=== PATIENT | female | born 1965 | race Caucasian/White ===

== ENCOUNTER 2016-07-18 23:23 | Observation (INO) ==
[2016-07-18] MEDS ORDERED: *HR* Morphine 2 MG/ML SYRINGE IVP ONE (23:36)
[2016-07-18] MEDS ORDERED: Ketorolac 30 MG/ML VIAL IVP ONE (23:36)
--- NOTE | 2016-07-18 23:40 | Emergency Department Note ---
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: with residential use Qualified Code(s): E11.8 - Type 2 diabetes mellitus with unspecified complications Disposition: Admitted As Inpatient Condition: Good Time of Disposition: 03:25 Abdominal Pain HPI - General Chief Complaint: ED Abdominal Pain Stated Complaint: flank pain Time Seen by Provider: 07/18/16 23:36 Source: patient Nursing Notes Reviewed: Yes Vital Signs Reviewed: Yes - History of Present Illness Pt Subjective Complaint: flank pain Onset (ago): hour(s) Consistency: constant Location: bilateral flank Pain Scale: 8 Radiation: LLQ, RLQ Improves with: other (curling up on side) Worsens with: other (laying supine) Context: history of similar episodes Associated symptoms: Reports: diarrhea, dysuria, hematuria. Denies: fever, chills, constipation - Related Data Home Medications Medication Instructions Recorded Confirmed Amitriptyline HCl 100 mg PO DAILY PRN 05/23/15 03/14/16 Duloxetine HCl [Cymbalta] 60 mg PO DAILY 05/23/15 03/14/16 Lactobacillus Acidophilus 1 tab PO DAILY 05/23/15 03/14/16 [Acidophilus] Levothyroxine [Synthroid] 175 mcg PO DAILY 05/23/15 03/14/16 Magnesium Oxide [Magnesium] 400 mg PO DAILY 05/23/15 03/14/16 Metformin [Glucophage] 500 mg PO BIDWM 05/23/15 03/14/16 Promethazine [Phenergan] 25 mg PO PRN PRN 05/23/15 03/14/16 Zolpidem [Ambien] 10 mg PO HS 05/23/15 03/14/16 Gabapentin [Neurontin] 600 mg PO TID 01/17/16 03/14/16 HYDROcodone/Acet 7.5/325 mg [[place] 1 tab PO TID PRN 01/17/16 03/14/16 7.5-325 mg] Insulin DETEMIR [Levemir] 64 unit SQ QPM 01/17/16 03/14/16 Insulin LISPRO [HumaLOG] 34 units SQ TIDWM 01/17/16 03/14/16 Multivitamin [Multivitamins] 1 tab PO DAILY 01/17/16 03/14/16 Aspirin [Lo-Dose Aspirin EC] 81 mg PO DAILY 02/14/16 03/14/16 Atorvastatin [Lipitor] 80 mg PO DAILY 02/14/16 03/14/16 Furosemide [Lasix] 20 mg PO DAILY 02/14/16 03/14/16 Previous Rx's Medication Instructions Recorded Ondansetron HCl [Zofran] 4 mg PO Q6HR PRN #10 tablet 02/14/16 LORazepam [Ativan] 1 mg PO BID #6 tablet 03/11/16 Carvedilol [Coreg] 6.25 mg PO BIDWM #60 tablet 03/16/16 Omeprazole [PriLOSEC] 40 mg PO DAILY #30 cap 03/16/16 Allergies Allergy/AdvReac Type Severity Reaction Status Date / Time pregabalin [From Lyrica] Allergy Swelling Verified 07/18/16 23:25 of Lip/Tongue/Throat [place] Allergy Hives Verified 07/18/16 23:25 ESME Inhibitors AdvReac Cough Verified 07/18/16 23:25 codeine AdvReac Itching Verified 07/18/16 23:25 dihydroergotamine AdvReac Hallucinati Verified 07/18/16 23:25 ng [id number] Antimigraine AdvReac Cough Verified 07/18/16 23:25 Agents asolicitic acid Allergy Rash Uncoded 07/18/16 23:25 All systems ED: reviewed and negative except as stated. Constitutional: Denies: fever, chills Eyes: Denies: eye pain ENT ED: Denies: ear pain Cardiovascular: Denies: chest pain, palpitations Respiratory: Denies: cough, dyspnea Gastrointestinal: Reports: as per HPI, diarrhea (bloody) Genitourinary: Denies: dysuria Musculoskeletal: Reports: as per HPI. 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: Reports: endometriosis, bilateral tubal ligation Psychiatric history: Reports: no psych history - Social History Smoking status: Former smoker Alcohol use: Reports: none Drug use: Reports: none Physical Exam - General Limitations: no limitations General appearance: alert, in no apparent distress - Head Head exam: normocephalic - Eye Eye exam: Present: EOMI - ENT ENT exam: normal exam, normal oropharynx - Neck Neck exam: Present: normal inspection, full ROM - Chest Chest inspection: Present: normal inspection, symmetric chest wall rise - Respiratory Respiratory exam: Present: normal lung sounds bilaterally. Absent: respiratory distress - Cardiovascular Cardiovascular exam: Present: regular rate, normal rhythm - Abdominal Exam Abdominal exam: Present: soft, Non-Tender - Extremities Exam Extremities exam: Present: normal inspection, normal capillary refill - Back Exam Back exam: Present: full ROM, tenderness, CVA tenderness (R), CVA tenderness (L) - Neurological Exam Neurological exam: Present: alert - Psychiatric Psychiatric exam: Present: normal affect, normal mood - Skin Skin exam: Present: warm, dry, intact, normal color. Absent: rash, cyanosis, diaphoresis Course Course Narrative: 50-year-old female diabetic presents with bilateral flank pain that radiates into right and left lower quadrant. She compares it to her previous kidney stone pain. Pain started shortly after she was urinating [employer], and noticing blood on the tissue after she had wiped. She had some nausea at home which was helped with phenergan prior to arrival, but she has not vomitted. She mentions 2-3 day h/o of blood diarrhea. She mentions a history of irritable bowel syndrome, with chronic diarrhea, and also has had episodes of bloody diarrhea in the past. She states that previous doctors have told her this is not concerning and less it turns dark. She uses oxygen at home for her shortness of breath which she states is caused from her COPD. She uses an insulin pump to help with her diabetes. She mentions intermittent dysuria especially after she boluses from her insulin pump. She denies any melena, hematemesis, recent travel, fevers, chest pain, dyspnea on exertion, diaphoresis , neck or extremity pain, pelvic pain, vaginal bleeding, anticoagulants. - Reevaluation(s) Reevaluation #1: Per nursing, lab and nursing had had difficulty obtain blood and placing IV. Discussed route of administration with palpation who is agreeable to IM injections. Labwork shows slight elevation of liver enzymes, but these are consistent with her previous readings. Urinalysis shows no hematuria, no evidence of urinary tract infection. Serum ketones, elevated white blood cell count, or elevated lipase. She mentioned she had some relief after initial Toradol and morphine however pain returned shortly after. Patient was given a dose of Toradol which she states that helped marginally. Initial impression from CT abdomen and pelvis without contrast shows no acute abdominal pelvic concerns. Patient's blood pressure has improved after pain medications, and her vitals are within limits and stable. I discussed patient with Dr. Tubbs who also had a face time with patient. Will consider admission for intractable abdominal pain. Patient does mention intermittent bloody diarrhea. We will do a ABHIJIT and hemaccult. Per nursing, unable to get IV place. Will reassess pain and order analgesics. Time: 02:27 Reevaluation #2: IV access was obtained. Patient IV fentanyl ordered. Patient discussed with and accepted by hospitalist Dr. Alfred, who advised fluids and also requested stool collection for culture and c.diff Time: 03:23 Vital Signs Temperature 97.7 F 07/18/16 23:26 Pulse Rate 98 07/18/16 23:26 Respiratory Rate 18 07/18/16 23:26 Blood Pressure 209/79 07/18/16 23:26 O2 Sat by Pulse Oximetry 98 07/18/16 23:26 Temperature 97.7 F 07/18/16 23:26 Pulse Rate 83 07/19/16 03:03 Respiratory Rate 14 07/19/16 04:02 Blood Pressure 175/74 07/19/16 04:02 O2 Sat by Pulse Oximetry 98 07/19/16 03:03 Oxygen Delivery Oxygen Delivery Nasal Cannula Abdominal Pain - [facility] Narrative Medical decision making narrative: Patient presented with bilateral flank pain with radiation into her bilateral lower quadrants. She denies any worsening shortness of breath, chest pain, or recent illness. Patient also has a recent history of samantha hematuria, and bloody diarrhea. Patient has had previous evaluations in the past for abdominal pain, states that she has had seen GI for this in the past. Workup tonight unremarkable, CT scan unremarkable. Due to the note cause of abdominal pain and bloody stools, patient was discussed and accepted by hospitalist. Her vitals have been stable here. She has been given multiple doses of pain medication. Patient stable to be transferred to inpatient care. Abdomen/Pelvis CT 07/19/16 01:00 IMPRESSION: 1. No acute findings identified within the abdomen pelvis. D/ / Sanju Blanchard MD / Sanju Blanchard MD Interpreting Provider: Sanju Blanchard MD All Lab Results (24 Hours) 07/19/16 07/19/16 07/19/16 Range/Units 00:10 00:16 00:16 WBC 10.1 (4.3-11.1) K/mcL RBC 4.14 (3.82-4.97) M/mcL Hgb 12.5 (11.5-15.4) g/dL Hct 36.1 (35.3-44.9) % MCV 87.2 (83.0-100.0) fL MCH 30.2 (28.0-33.3) pg MCHC 34.6 (31.6-35.5) g/dL RDW 12.6 (11.5-14.5) % Plt Count 260 (140-400) K/mcL MPV 10.0 (9.4-12.4) fL Immature Gran % 0.3 (0-4) % Seg Neutrophils % 64.9 % Lymphocytes % 25.0 % Monocytes % 7.0 % Eosinophils % 2.2 % Basophils % 0.6 % Neutrophils # 6.5 (1.6-8.9) K/mcL Lymphocytes # 2.5 (0.6-4.6) K/mcL Monocytes # 0.7 (0.0-1.3) K/mcL Eosinophils # 0.2 (0.0-0.6) K/mcL Basophils # 0.1 (0.0-0.2) K/mcL Immature Plt Fraction 4.2 (1.1-6.1) % PT 11.0 (9.4-12.1) Seconds INR 1.0 APTT 20.0 L (26.0-36.0) Seconds Sodium 135 L (136-145) mEq/L Potassium 4.0 (3.5-4.5) mEq/L Chloride 100 (98-109) mEq/L Carbon Dioxide 26 (19-29) mEq/L BUN 10 (7-20) mg/dL Creatinine 0.95 (0.57-1.11) mg/dL Est GFR ( Amer) > 60 (> 60) Est GFR (Non-Af Amer) > 60 (> 60) BUN/Creatinine Ratio 11 (6-26) Glucose 380 H (70-99) mg/dL Calculated Osmolality 295 (280-300) Calcium 9.2 (8.6-10.8) mg/dL Total Bilirubin (0.2-1.2) mg/dL Direct Bilirubin (0.0-0.5) mg/dL Indirect Bilirubin (0.0-1.2) mg/dL AST (5-34) Units/L ALT (0-55) Units/L Alkaline Phosphatase (38-126) Units/L Serum Total Protein (6.0-8.3) g/dL Albumin (3.5-5.0) g/dL Globulin (2.4-3.5) g/dL Albumin/Globulin Ratio (1.1-2.2) Lipase (8-78) Units/L Beta-Hydroxybutyric Acd (0.02-0.27) mmol/L Urine Color (Yellow) Urine Clarity (Clear) Urine pH (5.0-8.0) pH Units Ur Specific [place] (1.010-1.025) Urine Protein (Neg-Trace) mg/dL Urine Glucose (UA) (Normal) mg/dL Urine Ketones (Negative) mg/dL Urine Blood (Negative) Urine Nitrite (Negative) Urine Bilirubin (Negative) Urine Urobilinogen (Normal) mg/dL Ur Leukocyte Esterase (Negative) Urine Microscopic RBC (0-3) per hpf Urine Microscopic WBC (0-3) per hpf Ur Squamous Epith Cells (None-Few) per lpf Urine Bacteria (None-Few) per hpf Hyaline Casts (None-Few) per lpf Ur Culture Indicated? (NO) Stool Occult Blood (Negative) 07/19/16 07/19/16 07/19/16 Range/Units 00:16 00:16 00:21 WBC (4.3-11.1) K/mcL RBC (3.82-4.97) M/mcL Hgb (11.5-15.4) g/dL Hct (35.3-44.9) % MCV (83.0-100.0) fL MCH (28.0-33.3) pg MCHC (31.6-35.5) g/dL RDW (11.5-14.5) % Plt Count (140-400) K/mcL MPV (9.4-12.4) fL Immature Gran % (0-4) % Seg Neutrophils % % Lymphocytes % % Monocytes % % Eosinophils % % Basophils % % Neutrophils # (1.6-8.9) K/mcL Lymphocytes # (0.6-4.6) K/mcL Monocytes # (0.0-1.3) K/mcL Eosinophils # (0.0-0.6) K/mcL Basophils # (0.0-0.2) K/mcL Immature Plt Fraction (1.1-6.1) % PT (9.4-12.1) Seconds INR APTT (26.0-36.0) Seconds Sodium (136-145) mEq/L Potassium (3.5-4.5) mEq/L Chloride (98-109) mEq/L Carbon Dioxide (19-29) mEq/L BUN (7-20) mg/dL Creatinine (0.57-1.11) mg/dL Est GFR ( Amer) (> 60) Est GFR (Non-Af Amer) (> 60) BUN/Creatinine Ratio (6-26) Glucose (70-99) mg/dL Calculated Osmolality (280-300) Calcium (8.6-10.8) mg/dL Total Bilirubin 0.6 (0.2-1.2) mg/dL Direct Bilirubin 0.2 (0.0-0.5) mg/dL Indirect Bilirubin 0.4 (0.0-1.2) mg/dL AST 71 H (5-34) Units/L ALT 57 H (0-55) Units/L Alkaline Phosphatase 143 H (38-126) Units/L Serum Total Protein 7.7 (6.0-8.3) g/dL Albumin 3.7 (3.5-5.0) g/dL Globulin 4.0 H (2.4-3.5) g/dL Albumin/Globulin Ratio 0.9 L (1.1-2.2) Lipase 45 (8-78) Units/L Beta-Hydroxybutyric Acd 0.22 (0.02-0.27) mmol/L Urine Color Yellow (Yellow) Urine Clarity Clear (Clear) Urine pH 6.0 (5.0-8.0) pH Units Ur Specific [place] > 1.030 H (1.010-1.025) Urine Protein Trace (Neg-Trace) mg/dL Urine Glucose (UA) >=1000 H (Normal) mg/dL Urine Ketones Trace H (Negative) mg/dL Urine Blood Negative (Negative) Urine Nitrite Negative (Negative) Urine Bilirubin Negative (Negative) Urine Urobilinogen Normal (Normal) mg/dL Ur Leukocyte Esterase Negative (Negative) Urine Microscopic RBC 0-3 (0-3) per hpf Urine Microscopic WBC 3-5 H (0-3) per hpf Ur Squamous Epith Cells Many H (None-Few) per lpf Urine Bacteria None Seen (None-Few) per hpf Hyaline Casts None Seen (None-Few) per lpf Ur Culture Indicated? NO (NO) Stool Occult Blood (Negative) 07/19/16 Range/Units 01:47 WBC (4.3-11.1) K/mcL RBC (3.82-4.97) M/mcL Hgb (11.5-15.4) g/dL Hct (35.3-44.9) % MCV (83.0-100.0) fL MCH (28.0-33.3) pg MCHC (31.6-35.5) g/dL RDW (11.5-14.5) % Plt Count (140-400) K/mcL MPV (9.4-12.4) fL Immature Gran % (0-4) % Seg Neutrophils % % Lymphocytes % % Monocytes % % Eosinophils % % Basophils % % Neutrophils # (1.6-8.9) K/mcL Lymphocytes # (0.6-4.6) K/mcL Monocytes # (0.0-1.3) K/mcL Eosinophils # (0.0-0.6) K/mcL Basophils # (0.0-0.2) K/mcL Immature Plt Fraction (1.1-6.1) % PT (9.4-12.1) Seconds INR APTT (26.0-36.0) Seconds Sodium (136-145) mEq/L Potassium (3.5-4.5) mEq/L Chloride (98-109) mEq/L Carbon Dioxide (19-29) mEq/L BUN (7-20) mg/dL Creatinine (0.57-1.11) mg/dL Est GFR ( Amer) (> 60) Est GFR (Non-Af Amer) (> 60) BUN/Creatinine Ratio (6-26) Glucose (70-99) mg/dL Calculated Osmolality (280-300) Calcium (8.6-10.8) mg/dL Total Bilirubin (0.2-1.2) mg/dL Direct Bilirubin (0.0-0.5) mg/dL Indirect Bilirubin (0.0-1.2) mg/dL AST (5-34) Units/L ALT (0-55) Units/L Alkaline Phosphatase (38-126) Units/L Serum Total Protein (6.0-8.3) g/dL Albumin (3.5-5.0) g/dL Globulin (2.4-3.5) g/dL Albumin/Globulin Ratio (1.1-2.2) Lipase (8-78) Units/L Beta-Hydroxybutyric Acd (0.02-0.27) mmol/L Urine Color (Yellow) Urine Clarity (Clear) Urine pH (5.0-8.0) pH Units Ur Specific [place] (1.010-1.025) Urine Protein (Neg-Trace) mg/dL Urine Glucose (UA) (Normal) mg/dL Urine Ketones (Negative) mg/dL Urine Blood (Negative) Urine Nitrite (Negative) Urine Bilirubin (Negative) Urine Urobilinogen (Normal) mg/dL Ur Leukocyte Esterase (Negative) Urine Microscopic RBC (0-3) per hpf Urine Microscopic WBC (0-3) per hpf Ur Squamous Epith Cells (None-Few) per lpf Urine Bacteria (None-Few) per hpf Hyaline Casts (None-Few) per lpf Ur Culture Indicated? (NO) Stool Occult Blood Positive A (Negative) - Lab Data Lab results reviewed: Yes I reviewed the patient's lab results. Result diagrams: 07/19/16 00:16 07/19/16 00:16 Lab Results 07/19/16 07/19/16 07/19/16 Range/Units 00:10 00:16 00:16 WBC 10.1 (4.3-11.1) K/mcL RBC 4.14 (3.82-4.97) M/mcL Hgb 12.5 (11.5-15.4) g/dL Hct 36.1 (35.3-44.9) % MCV 87.2 (83.0-100.0) fL MCH 30.2 (28.0-33.3) pg MCHC 34.6 (31.6-35.5) g/dL RDW 12.6 (11.5-14.5) % Plt Count 260 (140-400) K/mcL MPV 10.0 (9.4-12.4) fL Immature Gran % 0.3 (0-4) % Seg Neutrophils % 64.9 % Lymphocytes % 25.0 % Monocytes % 7.0 % Eosinophils % 2.2 % Basophils % 0.6 % Neutrophils # 6.5 (1.6-8.9) K/mcL Lymphocytes # 2.5 (0.6-4.6) K/mcL Monocytes # 0.7 (0.0-1.3) K/mcL Eosinophils # 0.2 (0.0-0.6) K/mcL Basophils # 0.1 (0.0-0.2) K/mcL Immature Plt Fraction 4.2 (1.1-6.1) % PT 11.0 (9.4-12.1) Seconds INR 1.0 APTT 20.0 L (26.0-36.0) Seconds Sodium 135 L (136-145) mEq/L Potassium 4.0 (3.5-4.5) mEq/L Chloride 100 (98-109) mEq/L Carbon Dioxide 26 (19-29) mEq/L BUN 10 (7-20) mg/dL Creatinine 0.95 (0.57-1.11) mg/dL Est GFR ( Amer) > 60 (> 60) Est GFR (Non-Af Amer) > 60 (> 60) BUN/Creatinine Ratio 11 (6-26) Glucose 380 H (70-99) mg/dL Calculated Osmolality 295 (280-300) Calcium 9.2 (8.6-10.8) mg/dL Total Bilirubin (0.2-1.2) mg/dL Direct Bilirubin (0.0-0.5) mg/dL Indirect Bilirubin (0.0-1.2) mg/dL AST (5-34) Units/L ALT (0-55) Units/L Alkaline Phosphatase (38-126) Units/L Serum Total Protein (6.0-8.3) g/dL Albumin (3.5-5.0) g/dL Globulin (2.4-3.5) g/dL Albumin/Globulin Ratio (1.1-2.2) Lipase (8-78) Units/L Beta-Hydroxybutyric Acd (0.02-0.27) mmol/L Urine Color (Yellow) Urine Clarity (Clear) Urine pH (5.0-8.0) pH Units Ur Specific [place] (1.010-1.025) Urine Protein (Neg-Trace) mg/dL Urine Glucose (UA) (Normal) mg/dL Urine Ketones (Negative) mg/dL Urine Blood (Negative) Urine Nitrite (Negative) Urine Bilirubin (Negative) Urine Urobilinogen (Normal) mg/dL Ur Leukocyte Esterase (Negative) Urine Microscopic RBC (0-3) per hpf Urine Microscopic WBC (0-3) per hpf Ur Squamous Epith Cells (None-Few) per lpf Urine Bacteria (None-Few) per hpf Hyaline Casts (None-Few) per lpf Ur Culture Indicated? (NO) Stool Occult Blood (Negative) 07/19/16 07/19/16 07/19/16 Range/Units 00:16 00:16 00:21 WBC (4.3-11.1) K/mcL RBC (3.82-4.97) M/mcL Hgb (11.5-15.4) g/dL Hct (35.3-44.9) % MCV (83.0-100.0) fL MCH (28.0-33.3) pg MCHC (31.6-35.5) g/dL RDW (11.5-14.5) % Plt Count (140-400) K/mcL MPV (9.4-12.4) fL Immature Gran % (0-4) % Seg Neutrophils % % Lymphocytes % % Monocytes % % Eosinophils % % Basophils % % Neutrophils # (1.6-8.9) K/mcL Lymphocytes # (0.6-4.6) K/mcL Monocytes # (0.0-1.3) K/mcL Eosinophils # (0.0-0.6) K/mcL Basophils # (0.0-0.2) K/mcL Immature Plt Fraction (1.1-6.1) % PT (9.4-12.1) Seconds INR APTT (26.0-36.0) Seconds Sodium (136-145) mEq/L Potassium (3.5-4.5) mEq/L Chloride (98-109) mEq/L Carbon Dioxide (19-29) mEq/L BUN (7-20) mg/dL Creatinine (0.57-1.11) mg/dL Est GFR ( Amer) (> 60) Est GFR (Non-Af Amer) (> 60) BUN/Creatinine Ratio (6-26) Glucose (70-99) mg/dL Calculated Osmolality (280-300) Calcium (8.6-10.8) mg/dL Total Bilirubin 0.6 (0.2-1.2) mg/dL Direct Bilirubin 0.2 (0.0-0.5) mg/dL Indirect Bilirubin 0.4 (0.0-1.2) mg/dL AST 71 H (5-34) Units/L ALT 57 H (0-55) Units/L Alkaline Phosphatase 143 H (38-126) Units/L Serum Total Protein 7.7 (6.0-8.3) g/dL Albumin 3.7 (3.5-5.0) g/dL Globulin 4.0 H (2.4-3.5) g/dL Albumin/Globulin Ratio 0.9 L (1.1-2.2) Lipase 45 (8-78) Units/L Beta-Hydroxybutyric Acd 0.22 (0.02-0.27) mmol/L Urine Color Yellow (Yellow) Urine Clarity Clear (Clear) Urine pH 6.0 (5.0-8.0) pH Units Ur Specific [place] > 1.030 H (1.010-1.025) Urine Protein Trace (Neg-Trace) mg/dL Urine Glucose (UA) >=1000 H (Normal) mg/dL Urine Ketones Trace H (Negative) mg/dL Urine Blood Negative (Negative) Urine Nitrite Negative (Negative) Urine Bilirubin Negative (Negative) Urine Urobilinogen Normal (Normal) mg/dL Ur Leukocyte Esterase Negative (Negative) Urine Microscopic RBC 0-3 (0-3) per hpf Urine Microscopic WBC 3-5 H (0-3) per hpf Ur Squamous Epith Cells Many H (None-Few) per lpf Urine Bacteria None Seen (None-Few) per hpf Hyaline Casts None Seen (None-Few) per lpf Ur Culture Indicated? NO (NO) Stool Occult Blood (Negative) 07/19/16 Range/Units 01:47 WBC (4.3-11.1) K/mcL RBC (3.82-4.97) M/mcL Hgb (11.5-15.4) g/dL Hct (35.3-44.9) % MCV (83.0-100.0) fL MCH (28.0-33.3) pg MCHC (31.6-35.5) g/dL RDW (11.5-14.5) % Plt Count (140-400) K/mcL MPV (9.4-12.4) fL Immature Gran % (0-4) % Seg Neutrophils % % Lymphocytes % % Monocytes % % Eosinophils % % Basophils % % Neutrophils # (1.6-8.9) K/mcL Lymphocytes # (0.6-4.6) K/mcL Monocytes # (0.0-1.3) K/mcL Eosinophils # (0.0-0.6) K/mcL Basophils # (0.0-0.2) K/mcL Immature Plt Fraction (1.1-6.1) % PT (9.4-12.1) Seconds INR APTT (26.0-36.0) Seconds Sodium (136-145) mEq/L Potassium (3.5-4.5) mEq/L Chloride (98-109) mEq/L Carbon Dioxide (19-29) mEq/L BUN (7-20) mg/dL Creatinine (0.57-1.11) mg/dL Est GFR ( Amer) (> 60) Est GFR (Non-Af Amer) (> 60) BUN/Creatinine Ratio (6-26) Glucose (70-99) mg/dL Calculated Osmolality (280-300) Calcium (8.6-10.8) mg/dL Total Bilirubin (0.2-1.2) mg/dL Direct Bilirubin (0.0-0.5) mg/dL Indirect Bilirubin (0.0-1.2) mg/dL AST (5-34) Units/L ALT (0-55) Units/L Alkaline Phosphatase (38-126) Units/L Serum Total Protein (6.0-8.3) g/dL Albumin (3.5-5.0) g/dL Globulin (2.4-3.5) g/dL Albumin/Globulin Ratio (1.1-2.2) Lipase (8-78) Units/L Beta-Hydroxybutyric Acd (0.02-0.27) mmol/L Urine Color (Yellow) Urine Clarity (Clear) Urine pH (5.0-8.0) pH Units Ur Specific [place] (1.010-1.025) Urine Protein (Neg-Trace) mg/dL Urine Glucose (UA) (Normal) mg/dL Urine Ketones (Negative) mg/dL Urine Blood (Negative) Urine Nitrite (Negative) Urine Bilirubin (Negative) Urine Urobilinogen (Normal) mg/dL Ur Leukocyte Esterase (Negative) Urine Microscopic RBC (0-3) per hpf Urine Microscopic WBC (0-3) per hpf Ur Squamous Epith Cells (None-Few) per lpf Urine Bacteria (None-Few) per hpf Hyaline Casts (None-Few) per lpf Ur Culture Indicated? (NO) Stool Occult Blood Positive A (Negative) - Radiology Data Radiology results reviewed: Yes I reviewed the patient's radiology results. Attestation Statement - Attestation Attestation: I, Sean Tubbs MD, personally performed a history and physical exam of the patient and discussed their management with the midlevel provicer, PAC/ROOM DESIGNER. I reviewed the midlevel provider's note and agree with the documented findings, medical decision making, and plan of care. 50-year-old female presents to the emergency department with a complaint of severe bilateral flank pain radiating around to the lower quadrants of the abdomen. Pain became severe about 6 hours prior to arrival. Some gross hematuria. Patient has a history of kidney stones and states this feels the same however it is on both sides. Nausea but no vomiting. No fever. Some dysuria. She also complains of some diarrhea however this is chronic. Some blood in the diarrhea. On examination patient is a well-developed obese female in no acute distress but appears to be in moderate discomfort. She is alert and oriented 3. There is no cyanosis or diaphoresis. Breath sounds are clear and equal bilaterally. Heart regular rate and rhythm. Abdomen soft with normal bowel sounds. There is mild bilateral lower abdominal tenderness and moderate bilateral CVA tenderness. Labs reviewed. Urinalysis unremarkable. CT of the abdomen and pelvis showed no acute intra-abdominal or pelvic abnormality. Stool Hemoccult was positive. Patient continued to have significant pain despite multiple doses of pain medication. The hospitalist, Dr. Alfred, was consulted and accepted admission of the patient.
[2016-07-19 00:21] LABS: Basophils # 0.1 K/mcL (0.0-0.2); Basophils % 0.6 %; Eosinophils # 0.2 K/mcL (0.0-0.6); Eosinophils % 2.2 %; Hematocrit 36.1 % (35.3-44.9); Hemoglobin 12.5 g/dL (11.5-15.4); Immature Granulocytes % 0.3 % (0-4); Immature Platelets 4.2 % (1.1-6.1); Lymphocytes # 2.5 K/mcL (0.6-4.6); Mean Corpuscular HGB Conc 34.6 g/dL (31.6-35.5); Mean Corpuscular Hemoglobin 30.2 pg (28.0-33.3); Mean Corpuscular Volume 87.2 fL (83.0-100.0); Monocytes # 0.7 K/mcL (0.0-1.3); Neutrophils # 6.5 K/mcL (1.6-8.9); Platelet Count 260 K/mcL (140-400); Red Blood Count 4.14 M/mcL (3.82-4.97); Red Cell Distribution Width 12.6 % (11.5-14.5); Segmented Neutrophils % 64.9 %
[2016-07-19 00:28] LABS: Bilirubin,Urine Negative (Negative); Blood,Urine Negative (Negative); Clarity,Urine Clear (Clear); Color,Urine Yellow (Yellow); Glucose,Urine (UA) >=1000 mg/dL (Normal); Ketones,Urine Trace mg/dL (Negative); Leukocyte Esterase,Urine Negative (Negative); Nitrite,Urine Negative (Negative); Protein,Urine Trace mg/dL (Neg-Trace); Specific Gravity,Urine > 1.030 (1.010-1.025); Urobilinogen,Urine Normal (Normal)
[2016-07-19 00:30] LABS: Bacteria,Urine None Seen per hpf (None-Few); Hyaline Casts,Urine None Seen per lpf (None-Few); RBC,Urine 0-3 per hpf (0-3); Squamous Epithelial Cell,Urine Many per lpf (None-Few)
[2016-07-19 00:33] LABS: BUN/Creatinine Ratio 11 (6-26); Blood Urea Nitrogen 10 mg/dL (7-20); Calcium 9.2 mg/dL (8.6-10.8); Carbon Dioxide 26 mEq/L (19-29); Chloride 100 mEq/L (98-109); Glucose 380 mg/dL (70-99); Osmolality,Calculated 295 (280-300); Sodium 135 mEq/L (136-145); eGFR For African Americans > 60 (> 60); eGFR For Non-African Americans > 60 (> 60)
[2016-07-19] MEDS ORDERED: Ketorolac 15 MG/ML VIAL IM ONE (00:40)
[2016-07-19] MEDS ORDERED: *HR* Morphine 2 MG/ML SYRINGE IM ONE (00:40)
[2016-07-19 01:34] LABS: Albumin 3.7 g/dL (3.5-5.0); Albumin/Globulin Ratio 0.9 (1.1-2.2); Bilirubin,Direct 0.2 mg/dL (0.0-0.5); Bilirubin,Indirect 0.4 mg/dL (0.0-1.2); Bilirubin,Total 0.6 mg/dL (0.2-1.2); Total Protein 7.7 g/dL (6.0-8.3)
[2016-07-19] MEDS ORDERED: *HR* HYDROmorphone (PF) 1 MG/ML SYRINGE IM ONE (01:40)
[2016-07-19] MEDS ORDERED: Ondansetron ODT 4 MG TAB.RAPDIS SL ONE (01:40)
[2016-07-19] MEDS ORDERED: *HR* FentaNYL (PF) 100 MCG/2 ML VIAL IM ONE (02:23)
[2016-07-19] MEDS ORDERED: *HR* FentaNYL (PF) 100 MCG/2 ML VIAL IVP ONE (03:03)
[2016-07-19] MEDS ORDERED: 0.9 % Sodium Chloride 1,000 ML IVC ONE (03:20)
[2016-07-19] MEDS ORDERED: Ondansetron 4 MG/2 ML VIAL IVP ONE (03:38)
[2016-07-19] MEDS ORDERED: Ketorolac 30 MG/ML VIAL IVP ONE (05:42)
[2016-07-19] MEDS ORDERED: Acetaminophen 325 MG TABLET PO PRN (05:42)
[2016-07-19] MEDS ORDERED: Naloxone 0.4 MG/ML INJ IVP PRN (05:42)
[2016-07-19] MEDS: Ondansetron 4 MG/2 ML VIAL IVP PRN ×3 (06:07→22:28)
--- NOTE | 2016-07-19 06:08 | Internal Med History&Physical ---
<Jamari,Lauren Rose - Last Filed: 07/19/16 05:58> Date of Encounter: 07/19/16 Time of Encounter: 05:58 Assessment and Plan (1) Bilateral flank pain Current visit: Yes Status: Acute possibly etiology kidney stones, vs endometriosis, vs PCOS, vs adhesions, IBSD vs fibromyalgia -abd CT scan +FOB UA:+glucose with ketones pain control nausea and vomiting control cdiff, stool ctx, GI panel supportive care consider GI consult (2) Nausea & vomiting Current visit: Yes Status: Acute possibly etiology kidney stones, vs endometriosis, vs PCOS, vs adhesions, IBSD vs fibromyalgia -abd CT scan +FOB UA:+glucose with ketones pain control nausea and vomiting control supportive care (3) Abdominal pain Current visit: Yes Status: Acute possibly etiology kidney stones, vs endometriosis, vs PCOS, vs adhesions, IBSD vs fibromyalgia -abd CT scan +FOB UA:+glucose with ketones pain control nausea and vomiting control cdiff, stool ctx, GI panel supportive care consider GI consult Qualifiers: Abdominal location: lower abdomen, unspecified Qualified Code(s): R10.30 - Lower abdominal pain, unspecified (4) Bloody stool Current visit: Yes Status: Acute +FOB Hem 12.5/Hct 36.1 PT 11.0 INR 1 recheck H/H cdiff, stool ctx (5) Type 2 diabetes mellitus Current visit: Yes Status: Chronic glucose monitoring continue use of insulin pump Qualifiers: Diabetes mellitus complication status: with unspecified complications Diabetes mellitus half-way insulin use: with half-way use Qualified Code(s) : E11.8 - Type 2 diabetes mellitus with unspecified complications; Z79.4 - senior care (current) use of insulin Internal Medicine - H&P: HPI Chief complaint: flank pain Admitted From: Home Plans for Post Hospital Care: Home History of present illness: Ms. Andrade is a 50 year old female c/o b/l flank pain.PMHx CHF,NC,HTN,,DM,kidney stone,IBSD,migraines GERD, fibromyalgia Pt states it is a 10/10 sharp stabbing pain that radiates towards her groin area on both sides. Pt states pain started this afternoon and is constant. Pt states she has had pain like this before when she had three kidney stones. Laying in lateral recumbant position is most comfortable for her and pain medication is the only thing that is helping her now. Pt also states that she has had some nonbloody or bilious nausea and vomiting, and burning with urination, and increased frequency. She states that urinary symptoms sometimes occur when her blood sugars are running higher. She also c/o some bright red blood in her stools when she wipes which she states is somewhat normal for her secondary to hemorrhoids and IBSD. Pt denies headache change in vision,Cp,SOB,palpitation constipation diarrhea, she confirms chronic numbness/tingling in LE secondary to her diabetes. Past Med Surg Social Fam HX - Past Medical History Medical history: CHF, diabetes, fibromyalgia, GERD, hypertension, kidney stones , migraine, myocardial infarction, thyroid disease, other (PCOS endometriosis) Psychiatric history: anxiety, depression - Past Surgical History Surgical History: appendectomy, cholecystectomy, orthopedic, other, thyroidectomy, other - Social History Smoking Status: Former smoker Smokeless Tobacco Status: No Alcohol use: none Drug use: none - Family History Father Hx Family Cardiac Disorders: Yes (Stroke, NC, HTN, HLD) Hx Family Respiratory Disorders: Yes (COPD) Hx Family Cancer: No Hx Family GI Disorders: No Hx Family Genitourinary Disorders: No Hx Family Endocrine Disorder: Yes (DM) Hx Family Musculoskeletal Disorders: No Hx Family Neuromuscular Disorders: Yes (Neuropathy) Hx Family Neurologic Disorders: Yes (Alzheimers) Hx Family HEENT Disorders: No Hx Family Autoimmune Disorders: No Hx Family Reproductive Disorders: No Hx Family Psychosocial Disorders: No Hx Family Medical Disorders: No Mother Hx Family Neuromuscular Disorders: Yes (parkinsons) Internal Medicine - H&P: Meds Amitriptyline HCl 100 mg PO DAILY PRN 05/23/15 [History] Duloxetine HCl [Cymbalta] 60 mg PO DAILY 05/23/15 [History] Lactobacillus Acidophilus [Acidophilus] 1 tab PO DAILY 05/23/15 [History] Levothyroxine [Synthroid] 175 mcg PO DAILY 05/23/15 [History] Magnesium Oxide [Magnesium] 400 mg PO DAILY 05/23/15 [History] Metformin [Glucophage] 500 mg PO BIDWM 05/23/15 [History] Promethazine [Phenergan] 25 mg PO PRN PRN 05/23/15 [History] Zolpidem [Ambien] 10 mg PO HS 05/23/15 [History] Gabapentin [Neurontin] 600 mg PO TID 01/17/16 [History] HYDROcodone/Acet 7.5/325 mg [[place] 7.5-325 mg] 1 tab PO TID PRN 01/17/16 [ History] Insulin DETEMIR [Levemir] 64 unit SQ QPM 01/17/16 [History] Insulin LISPRO [HumaLOG] 34 units SQ TIDWM 01/17/16 [History] Multivitamin [Multivitamins] 1 tab PO DAILY 01/17/16 [History] Aspirin [Lo-Dose Aspirin EC] 81 mg PO DAILY 02/14/16 [History] Atorvastatin [Lipitor] 80 mg PO DAILY 02/14/16 [History] Furosemide [Lasix] 20 mg PO DAILY 02/14/16 [History] Ondansetron HCl [Zofran] 4 mg PO Q6HR PRN #10 tablet 02/14/16 [Rx] LORazepam [Ativan] 1 mg PO BID #6 tablet 03/11/16 [Rx] Carvedilol [Coreg] 6.25 mg PO BIDWM #60 tablet 03/16/16 [Rx] Omeprazole [PriLOSEC] 40 mg PO DAILY #30 cap 03/16/16 [Rx] Allergies pregabalin [From Lyrica] Allergy (Verified 07/18/16 23:25) Swelling of Lip/Tongue/Throat Bypro Allergy (Verified 07/18/16 23:25) Hives ESME Inhibitors Adverse Reaction (Verified 07/18/16 23:25) Cough codeine Adverse Reaction (Verified 07/18/16 23:25) Itching dihydroergotamine Adverse Reaction (Verified 07/18/16 23:25) Hallucinating [id number] Antimigraine Agents Adverse Reaction (Verified 07/18/16 23:25) Cough asolicitic acid Allergy (Uncoded 07/18/16 23:25) Rash All Systems PM: A 10-system review of systems was performed and is negative for pertinent findings except as documented above in the HPI. - Constitutional Constitutional: no chills, no fever(s), no night sweats - EENT Eyes: no change in vision, no discharge, no pain, no photophobia - Cardiovascular Cardiovascular ROS IM: no chest pain, no diaphoresis, no dyspnea, no lightheadedness, no palpitations, no syncope - Respiratory Respiratory: no cough, no dyspnea, no wheezing, no excessive phlegm production - Gastrointestinal Gastrointestinal: abdominal pain, hematochezia, nausea, vomiting - Genitourinary Genitourinary: change in urinary stream, dysuria - Musculoskeletal Musculoskeletal ROS IM: back pain - Integumentary Integumentary IM: no rash, no unusual bruising - Neurological Neurological ROS: no confusion, no convulsions, no focal weakness, no numbness, no tingling, no tremor(s) - Constitutional Vitals: Temp Pulse Resp BP Pulse Ox 97.8 F 78 16 169/73 97 07/19/16 04:42 07/19/16 04:42 07/19/16 04:42 07/19/16 04:42 07/19/16 04:42 General appearance: Present: A&O X 3, obese - Head Head exam: Present: atraumatic, normocephalic - Eye Eye exam: Present: PERRL, conjuntiva pink, sclera anicteric Pupils: Present: PERRL - Neck Neck exam general surgery: Present: supple, trachea midline. Absent: lymphadenopathy - Respiratory Respiratory exam: Present: CTAB. Absent: accessory muscle use, rales, rhonchi, wheezes - Cardiovascular Cardiovascular exam: Present: RRR, +S1, +S2. Absent: diastolic murmur, gallop, rubs, systolic murmur - GI/Abdominal GI/Abdominal exam: Present: normal bowel sounds, soft, tenderness (suprapubic LLQ mild ttp), no peritoneal signs - Extremities Exam Extremities exam: Present: warm, radial pulses palpable and symetrical. Absent : calf tenderness, cyanotic - Back Exam Back exam: Absent: CVA tenderness (L), CVA tenderness (R) (-llyods punch b/l) Additional comments: ttp b/l PSIS - Neurological Exam Neurological exam: Present: CN II-XII intact, oriented X3, no focal deficits. Absent: pronater drift, facial droop, speech deficit - Skin Skin exam: Present: dry, intact Internal Med - H&P Results - Labs CBC & Chem 7: 07/19/16 00:16 07/19/16 00:16 <Je Block - Last Filed: 03/15/17 08:00> Assessment and Plan (1) Muscular abdominal pain in right flank Current visit: Yes Status: Acute . (2) Muscular abdominal pain in left flank Current visit: Yes Status: Acute . (3) Muscular abdominal pain in left lower quadrant Current visit: Yes Status: Acute . (4) Muscular abdominal pain in right lower quadrant Current visit: Yes Status: Acute . (5) Hematochezia Current visit: Yes Status: Chronic . (6) Irritable bowel syndrome (IBS) Current visit: Yes Status: Chronic . Qualifiers: Irritable bowel syndrome type: with diarrhea Qualified Code(s): K58.0 - Irritable bowel syndrome with diarrhea (7) Chronic pain associated with significant psychosocial dysfunction Current visit: Yes Status: Chronic . (8) Morbid obesity with BMI of 45.0-49.9, adult Current visit: Yes Status: Chronic . (9) Physical deconditioning Current visit: Yes Status: Chronic . (10) Hypothyroidism Current visit: Yes Status: Chronic . Qualifiers: Hypothyroidism type: unspecified Qualified Code(s): E03.9 - Hypothyroidism , unspecified (11) At risk for abnormal gastrointestinal motility Current visit: Yes Status: Chronic . (12) At risk for abuse of opiates Current visit: Yes Status: Chronic . (13) At risk for adverse drug event Current visit: Yes Status: Acute . (14) Type 2 diabetes mellitus Current visit: Yes Status: Chronic Qualifiers: Diabetes mellitus complication status: with unspecified complications Diabetes mellitus half-way insulin use: with tank terminal gauger use Qualified Code(s) : E11.8 - Type 2 diabetes mellitus with unspecified complications; Z79.4 - parts counterman (current) use of insulin (15) CAD (coronary artery disease) Current visit: Yes Status: Chronic . Qualifiers: Coronary Disease-Associated Artery/Lesion type: unspecified vessel or lesion type [place] vs. transplanted heart: [place] heart Associated angina: with unstable angina Qualified Code(s): I25.110 - Atherosclerotic heart disease of [place] coronary artery with unstable angina pectoris (16) Fibromyalgia Current visit: Yes Status: Chronic . (17) Chronic diastolic congestive heart failure Current visit: Yes Status: Chronic . (18) GERD (gastroesophageal reflux disease) Current visit: Yes Status: Chronic . Qualifiers: Esophagitis presence: esophagitis presence not specified Qualified Code(s) : K21.9 - Gastro-esophageal reflux disease without esophagitis (19) Hyperlipidemia Current visit: Yes Status: Chronic . Qualifiers: Hyperlipidemia type: mixed hyperlipidemia Qualified Code(s): E78.2 - Mixed hyperlipidemia (20) Hypertension Current visit: Yes Status: Chronic . Qualifiers: Hypertension type: essential hypertension Qualified Code(s): I10 - Essential (primary) hypertension (21) History of endometriosis Current visit: Yes Status: Chronic . (22) History of endometrial ablation Current visit: Yes Status: Chronic . (23) History of PCOS Current visit: Yes Status: Chronic . (24) Acute exacerbation of chronic low back pain Current visit: Yes Status: Acute . Internal Medicine - H&P: HPI History of present illness: Ms. Andrade is a 50 year old female admitted to [facility] via the emergency department when she presented with complaints of intractable bilateral flank and abdominal pain accompanied by bright red blood per rectum mixed with loose stool. Patient was visited and interviewed and examined. I examined this patient and my medical decision-making was reviewed with the Resident Physician, Dr. Kauffman. For this encounter, I have reviewed the documentation, treatment plan, and medical decision making. I agree with the documented findings, disposition and treatment plan as described except to the extent set forth below. Cumulative laboratory and radiographic database was reviewed, considered and discussed. Given the patient's presenting concerns, past medical history, clinical findings and symptoms, she is admitted at this time to undergo further evaluation and disposition. Past Med Surg Social Fam HX - Past Medical History Medical history: arthritis, GI bleed (History of irritable bowel syndrome with episodes of bright red blood per rectum intermixed with diarrheal stool.) All Systems PM: A 10-system review of systems was performed and is negative for pertinent findings except as documented above in the HPI. - Constitutional Vitals: Temp Pulse Resp BP Pulse Ox 97.8 F 78 16 169/73 97 07/19/16 04:42 07/19/16 04:42 07/19/16 04:42 07/19/16 04:42 07/19/16 04:42 Internal Med - H&P Results - Labs CBC & Chem 7: 07/19/16 06:55 07/19/16 00:16 Labs: Vital Signs Temp Pulse Resp BP Pulse Ox 07/19/16 04:42 97.8 F 78 16 169/73 97 07/19/16 04:02 14 175/74 07/19/16 03:03 83 16 143/58 98 07/19/16 01:51 89 20 140/61 97 07/19/16 01:08 91 16 137/61 97 07/18/16 23:26 97.7 F 98 18 209/79 98 Intake and Output 07/18/16 07/18/16 07/19/16 15:59 23:59 07:59 Other: Weight 127.006 kg 133.946 kg Patient Weight 07/19/16 23:59 Weight 133.946 kg Short CBC 07/19/16 07/19/16 Range/Units 06:55 00:16 WBC 10.1 (4.3-11.1) K/mcL Hgb 12.1 12.5 (11.5-15.4) g/dL Hct 35.1 L 36.1 (35.3-44.9) % Plt Count 260 (140-400) K/mcL Neutrophils # 6.5 (1.6-8.9) K/mcL BMP 07/19/16 Range/Units 00:16 Sodium 135 L (136-145) mEq/L Potassium 4.0 (3.5-4.5) mEq/L Chloride 100 (98-109) mEq/L Carbon Dioxide 26 (19-29) mEq/L BUN 10 (7-20) mg/dL Creatinine 0.95 (0.57-1.11) mg/dL Glucose 380 H (70-99) mg/dL Calcium 9.2 (8.6-10.8) mg/dL Liver Function 07/19/16 Range/Units 00:16 Total Bilirubin 0.6 (0.2-1.2) mg/dL Direct Bilirubin 0.2 (0.0-0.5) mg/dL AST 71 H (5-34) Units/L ALT 57 H (0-55) Units/L Alkaline Phosphatase 143 H (38-126) Units/L Albumin 3.7 (3.5-5.0) g/dL Urine 07/19/16 Range/Units 00:21 Urine Color Yellow (Yellow) Urine Clarity Clear (Clear) Urine pH 6.0 (5.0-8.0) pH Units Ur Specific [place] > 1.030 H (1.010-1.025) Urine Protein Trace (Neg-Trace) mg/dL Urine Glucose (UA) >=1000 H (Normal) mg/dL Allergies Allergy/AdvReac Type Severity Reaction Status Date / Time pregabalin [From Lyrica] Allergy Swelling Verified 07/18/16 23:25 of Lip/Tongue/Throat Bypro Allergy Hives Verified 07/18/16 23:25 ESME Inhibitors AdvReac Cough Verified 07/18/16 23:25 codeine AdvReac Itching Verified 07/18/16 23:25 dihydroergotamine AdvReac Hallucinati Verified 07/18/16 23:25 ng [id number] Antimigraine AdvReac Cough Verified 07/18/16 23:25 Agents asolicitic acid Allergy Rash Uncoded 07/18/16 23:25 - Impressions Laboratory Results WBC 10.1 K/mcL (4.3-11.1) 07/19/16 00:16 RBC 4.14 M/mcL (3.82-4.97) 07/19/16 00:16 Hgb 12.1 g/dL (11.5-15.4) 07/19/16 06:55 Hct 35.1 % (35.3-44.9) L 07/19/16 06:55 MCV 87.2 fL (83.0-100.0) 07/19/16 00:16 MCH 30.2 pg (28.0-33.3) 07/19/16 00:16 MCHC 34.6 g/dL (31.6-35.5) 07/19/16 00:16 RDW 12.6 % (11.5-14.5) 07/19/16 00:16 Plt Count 260 K/mcL (140-400) 07/19/16 00:16 MPV 10.0 fL (9.4-12.4) 07/19/16 00:16 Immature Gran % 0.3 % (0-4) 07/19/16 00:16 Seg Neutrophils % 64.9 % 07/19/16 00:16 Lymphocytes % 25.0 % 07/19/16 00:16 Monocytes % 7.0 % 07/19/16 00:16 Eosinophils % 2.2 % 07/19/16 00:16 Basophils % 0.6 % 07/19/16 00:16 Neutrophils # 6.5 K/mcL (1.6-8.9) 07/19/16 00:16 Lymphocytes # 2.5 K/mcL (0.6-4.6) 07/19/16 00:16 Monocytes # 0.7 K/mcL (0.0-1.3) 07/19/16 00:16 Eosinophils # 0.2 K/mcL (0.0-0.6) 07/19/16 00:16 Basophils # 0.1 K/mcL (0.0-0.2) 07/19/16 00:16 Immature Plt Fraction 4.2 % (1.1-6.1) 07/19/16 00:16 PT 11.0 Seconds (9.4-12.1) 07/19/16 00:10 INR 1.0 07/19/16 00:10 APTT 20.0 Seconds (26.0-36.0) L 07/19/16 00:10 Sodium 135 mEq/L (136-145) L 07/19/16 00:16 Potassium 4.0 mEq/L (3.5-4.5) 07/19/16 00:16 Chloride 100 mEq/L (98-109) 07/19/16 00:16 Carbon Dioxide 26 mEq/L (19-29) 07/19/16 00:16 BUN 10 mg/dL (7-20) 07/19/16 00:16 Creatinine 0.95 mg/dL (0.57-1.11) 07/19/16 00:16 Est GFR ( Amer) > 60 (> 60) 07/19/16 00:16 Est GFR (Non-Af Amer) > 60 (> 60) 07/19/16 00:16 BUN/Creatinine Ratio 11 (6-26) 07/19/16 00:16 Glucose 380 mg/dL (70-99) H 07/19/16 00:16 Calculated Osmolality 295 (280-300) 07/19/16 00:16 Calcium 9.2 mg/dL (8.6-10.8) 07/19/16 00:16 Total Bilirubin 0.6 mg/dL (0.2-1.2) 07/19/16 00:16 Direct Bilirubin 0.2 mg/dL (0.0-0.5) 07/19/16 00:16 Indirect Bilirubin 0.4 mg/dL (0.0-1.2) 07/19/16 00:16 AST 71 Units/L (5-34) H 07/19/16 00:16 ALT 57 Units/L (0-55) H 07/19/16 00:16 Alkaline Phosphatase 143 Units/L (38-126) H 07/19/16 00:16 Serum Total Protein 7.7 g/dL (6.0-8.3) 07/19/16 00:16 Albumin 3.7 g/dL (3.5-5.0) 07/19/16 00:16 Globulin 4.0 g/dL (2.4-3.5) H 07/19/16 00:16 Albumin/Globulin Ratio 0.9 (1.1-2.2) L 07/19/16 00:16 Lipase 45 Units/L (8-78) 07/19/16 00:16 Beta-Hydroxybutyric Acd 0.22 mmol/L (0.02-0.27) 07/19/16 00:16 Urine Color Yellow (Yellow) 07/19/16 00:21 Urine Clarity Clear (Clear) 07/19/16 00: Urine pH 6.0 pH Units (5.0-8.0) 07/19/16 00:21 Ur Specific [place] > 1.030 (1.010-1.025) H 07/19/16 00:21 Urine Protein Trace mg/dL (Neg-Trace) 07/19/16 00: Urine Glucose (UA) >=1000 mg/dL (Normal) H 07/19/16 00:21 Urine Ketones Trace mg/dL (Negative) H 07/19/16 00: Urine Blood Negative (Negative) 07/19/16 00: Urine Nitrite Negative (Negative) 07/19/16 00: Urine Bilirubin Negative (Negative) 07/19/16 00: Urine Urobilinogen Normal mg/dL (Normal) 07/19/16 00: Ur Leukocyte Esterase Negative (Negative) 07/19/16 00: Urine Microscopic RBC 0-3 per hpf (0-3) 07/19/16 00:21 Urine Microscopic WBC 3-5 per hpf (0-3) H 07/19/16 00:21 Ur Squamous Epith Cells Many per lpf (None-Few) H 07/19/16 00: Urine Bacteria None Seen per hpf (None-Few) 07/19/16 00:21 Hyaline Casts None Seen per lpf (None-Few) 07/19/16 00:21 Ur Culture Indicated? NO (NO) 07/19/16 00:21 Stool Occult Blood Positive (Negative) A 07/19/16 01:47 Impressions Abdomen/Pelvis CT 07/19/16 01:00 IMPRESSION: 1. No acute findings identified within the abdomen pelvis. D/ / Sanju Blanchard MD / Sanju Blanchard MD Interpreting Provider: Sanju Blanchard MD - Attending Attestation My signature below is to certify that this patient is under my care and that I, or the Resident Physician working with me, has had a [id number] encounter with this patient. Plan of care has been reviewed and discussed in detail with the patient. Questions were addressed. Advanced care directive discussion briefly addressed. Patient does not declare any healthy restrictions at this time. Outpatient medication schedules. He, confirmed facilitated as appropriate. Reconciliation of home treatments including adjustments, substitutions and reintroduction into the treatment regimen will address necessary maintenance therapies for chronic pre-existing medical conditions. Hospital course dictated by clinical findings, treatment response and potential consultative interventions. Consultative opinions will be sought as clinical circumstances justify. The patient is at risk for further acute clinical decline and morbidity given this presenting chief complaint and associated comorbid conditions. Condition is serious. Prognosis is cautiously optimistic. CODE STATUS is full.
[2016-07-19] MEDS: Gabapentin 300 MG CAPSULE PO SCH ×4 (06:13→21:30)
[2016-07-19] MEDS: 0.9 % Sodium Chloride 1,000 ML IVC SCH ×3 (06:33→19:32)
[2016-07-19 07:04] LABS: Hematocrit 35.1 % (35.3-44.9); Hemoglobin 12.1 g/dL (11.5-15.4)
[2016-07-19] MEDS: Pantoprazole 40 MG VIAL IVP SCH ×2 (07:46→08:21)
[2016-07-19] MEDS: *HR* HYDROcodone/Acet 7.5/325 mg TABLET PO PRN ×2 (07:46→14:01)
[2016-07-19] MEDS: *HR* HYDROmorphone (PF) 1 MG/ML SYRINGE IVP PRN ×3 (11:44→21:30)
[2016-07-20] MEDS: *HR* HYDROmorphone (PF) 1 MG/ML SYRINGE IVP PRN ×4 (01:17→20:39)
[2016-07-20] MEDS: 0.9 % Sodium Chloride 1,000 ML IVC SCH ×2 (03:40→14:52)
[2016-07-20] MEDS: *HR* HYDROcodone/Acet 7.5/325 mg TABLET PO PRN ×4 (03:40→19:59)
[2016-07-20] MEDS: Gabapentin 300 MG CAPSULE PO SCH ×3 (09:35→21:23)
[2016-07-20] MEDS: Pantoprazole 40 MG VIAL IVP SCH (09:36)
[2016-07-20] MEDS: Ondansetron 4 MG/2 ML VIAL IVP PRN ×2 (11:34→20:39)
--- NOTE | 2016-07-20 16:09 | Internal Med Progress Note ---
Date of Encounter: 07/20/16 Time of Encounter: 16:06 - Assessment and plan (1) Acute exacerbation of chronic low back pain Current Visit: Yes Status: Acute Assessment and plan: Unclear etiology, Consider possible compression fracture Order x-rays due to new onset of back pain since yesterday she heard a "pop" (2) Bilateral flank pain Current Visit: Yes Status: Acute Assessment and plan: Unclear etiology, has history of nephrolithiasis CT scan of the abdomen did not show any nephrolithiasis or ureterolithiasis MRI of the pelvis did not show any endometriosis (3) Hematochezia Current Visit: Yes Status: Chronic Assessment and plan: Hemoglobin has been stable, has history of hemorrhoids Monitor CBC (4) Irritable bowel syndrome (IBS) Current Visit: Yes Status: Chronic Qualifiers: Irritable bowel syndrome type: with diarrhea Qualified Code(s): K58.0 - Irritable bowel syndrome with diarrhea (5) Morbid obesity with BMI of 45.0-49.9, adult Current Visit: Yes Status: Chronic (6) Chronic diastolic congestive heart failure Current Visit: Yes Status: Chronic Assessment and plan: Hold Lasix due to dehydration (7) Type 2 diabetes mellitus Current Visit: Yes Status: Chronic Assessment and plan: Continue insulin sliding scale Qualifiers: Diabetes mellitus complication status: with unspecified complications Diabetes mellitus terminal superintendent insulin use: with terminal superintendent use Qualified Code(s) : E11.8 - Type 2 diabetes mellitus with unspecified complications; Z79.4 - senior care (current) use of insulin (8) GERD (gastroesophageal reflux disease) Current Visit: Yes Status: Chronic Assessment and plan: Continue Protonix Qualifiers: Esophagitis presence: esophagitis presence not specified Qualified Code(s) : K21.9 - Gastro-esophageal reflux disease without esophagitis (9) Fibromyalgia Current Visit: Yes Status: Chronic (10) UTI (urinary tract infection) Current Visit: Yes Status: Acute Assessment and plan: Treat empirically with Rocephin Sending another UA and culture Qualifiers: Urinary tract infection type: acute cystitis Hematuria presence: with hematuria Qualified Code(s): N30.01 - Acute cystitis with hematuria (11) Transaminitis Current Visit: Yes Status: Acute Assessment and plan: Unclear etiology, consider liver ultrasound - Time Spent With Patient Greater than 35 minutes - Subjective Interval history: The patient is complaining of severe lower back pain, she says that her back popped yesterday and the pain is radiated to both of her hips. Denies any chest pain or shortness of breath, complains of dysuria and so some blood in her urine, denies fevers - Constitutional Vitals: Temp Pulse Resp BP Pulse Ox 98.3 F 83 17 155/66 96 07/20/16 14:58 07/20/16 14:58 07/20/16 14:58 07/20/16 14:58 07/20/16 14:58 General appearance: Present: A&O X 3, morbidly obese - Head Head exam: Present: atraumatic, normocephalic - Eye Eye exam: Present: PERRL, conjuntiva pink, sclera anicteric Pupils: Present: PERRL - Neck Neck exam general surgery: Present: supple, trachea midline. Absent: lymphadenopathy - Respiratory Respiratory exam: Present: decreased breath sounds, CTAB. Absent: accessory muscle use, rales, rhonchi, wheezes - Cardiovascular Cardiovascular exam: Present: RRR, +S1, +S2. Absent: diastolic murmur, gallop, rubs, systolic murmur - GI/Abdominal GI/Abdominal exam: Present: distended, normal bowel sounds, soft, no peritoneal signs. Absent: tenderness - Extremities Exam Extremities exam: Present: warm, radial pulses palpable and symetrical. Absent : calf tenderness, cyanotic, pedal edema Additional comments: Tenderness in the lower lumbar area - Neurological Exam Neurological exam: Present: CN II-XII intact, oriented X3, no focal deficits. Absent: pronater drift, facial droop, speech deficit - Skin Skin exam: Present: dry, intact Internal Medicine: Result - Labs CBC & Chem 7: 07/19/16 06:55 07/19/16 00:16 - ABG Interpretation ABG results: PT/INR, D-dimer PT 11.0 Seconds (9.4-12.1) 07/19/16 00:10 - Impressions Impressions Pelvis MRI 07/19/16 07:00 IMPRESSION: No evidence of endometriosis or acute pelvic abnormality. Motion artifact limits evaluation. D/ / Darío Beltran MD / Darío Beltran MD Interpreting Provider: Darío Beltran MD Consult Discharge Plan - Plan Referrals: Mona Payton MD [Primary Care Provider] - 07/25/16 10:20 am Sawyer Mccoy DO [Partnered Physician] - 07/24/16 12:40 pm
[2016-07-20 16:43] LABS: Bilirubin,Urine Negative (Negative); Blood,Urine Negative (Negative); Clarity,Urine Clear (Clear); Color,Urine Yellow (Yellow); Glucose,Urine (UA) 500 mg/dL (Normal); Ketones,Urine Negative (Negative); Leukocyte Esterase,Urine Negative (Negative); Nitrite,Urine Negative (Negative); Protein,Urine Trace mg/dL (Neg-Trace); Specific Gravity,Urine 1.021 (1.010-1.025); Urobilinogen,Urine Normal (Normal)
[2016-07-20 16:45] LABS: Bacteria,Urine None Seen per hpf (None-Few); Hyaline Casts,Urine None Seen per lpf (None-Few); RBC,Urine 0-3 per hpf (0-3); Squamous Epithelial Cell,Urine Many per lpf (None-Few); WBC,Urine 0-3 per hpf (0-3)
[2016-07-20 16:46] LABS: Hematocrit 31.5 % (35.3-44.9); Hemoglobin 10.8 g/dL (11.5-15.4); Mean Corpuscular HGB Conc 34.3 g/dL (31.6-35.5); Mean Corpuscular Hemoglobin 30.8 pg (28.0-33.3); Mean Corpuscular Volume 89.7 fL (83.0-100.0); Mean Platelet Volume 10.2 fL (9.4-12.4); Platelet Count 204 K/mcL (140-400); Red Blood Count 3.51 M/mcL (3.82-4.97); Red Cell Distribution Width 12.8 % (11.5-14.5)
[2016-07-20 16:50] LABS: BUN/Creatinine Ratio 10 (6-26); Blood Urea Nitrogen 9 mg/dL (7-20); Carbon Dioxide 24 mEq/L (19-29); Chloride 103 mEq/L (98-109); Glucose 274 mg/dL (70-99); Osmolality,Calculated 288 (280-300); Potassium 3.7 mEq/L (3.5-4.5); Sodium 135 mEq/L (136-145); eGFR For African Americans > 60 (> 60); eGFR For Non-African Americans > 60 (> 60)
[2016-07-20 19:19] LABS: Albumin 3.2 g/dL (3.5-5.0); Albumin/Globulin Ratio 0.9 (1.1-2.2); Bilirubin,Direct 0.1 mg/dL (0.0-0.5); Bilirubin,Indirect 0.2 mg/dL (0.0-1.2); Bilirubin,Total 0.3 mg/dL (0.2-1.2); Globulin 3.6 g/dL (2.4-3.5); Total Protein 6.8 g/dL (6.0-8.3)
[2016-07-20] MEDS ORDERED: Melatonin 3 MG TABLET PO PRN (21:18)
[2016-07-21] MEDS: Ondansetron 4 MG/2 ML VIAL IVP PRN (00:50)
[2016-07-21] MEDS: *HR* HYDROmorphone (PF) 1 MG/ML SYRINGE IVP PRN ×3 (00:50→11:32)
[2016-07-21] MEDS: 0.9 % Sodium Chloride 1,000 ML IVC SCH ×2 (01:48→11:33)
[2016-07-21 04:57] LABS: Alanine Aminotransferase 55 Units/L (0-55); Albumin 3.3 g/dL (3.5-5.0); Albumin/Globulin Ratio 0.9 (1.1-2.2); Alkaline Phosphatase 127 Units/L (38-126); Aspartate Amino Transferase 64 Units/L (5-34); BUN/Creatinine Ratio 8 (6-26); Bilirubin,Direct 0.2 mg/dL (0.0-0.5); Bilirubin,Indirect 0.1 mg/dL (0.0-1.2); Bilirubin,Total 0.3 mg/dL (0.2-1.2); Blood Urea Nitrogen 7 mg/dL (7-20); Calcium 8.2 mg/dL (8.6-10.8); Carbon Dioxide 23 mEq/L (19-29); Chloride 106 mEq/L (98-109); Globulin 3.7 g/dL (2.4-3.5); Glucose 244 mg/dL (70-99); Hematocrit 32.6 % (35.3-44.9); Hemoglobin 11.3 g/dL (11.5-15.4); Mean Corpuscular HGB Conc 34.7 g/dL (31.6-35.5); Mean Corpuscular Hemoglobin 31.2 pg (28.0-33.3); Mean Corpuscular Volume 90.1 fL (83.0-100.0); Mean Platelet Volume 10.5 fL (9.4-12.4); Osmolality,Calculated 292 (280-300); Platelet Count 229 K/mcL (140-400); Potassium 4.1 mEq/L (3.5-4.5); Red Blood Count 3.62 M/mcL (3.82-4.97); Red Cell Distribution Width 12.7 % (11.5-14.5); Sodium 138 mEq/L (136-145); eGFR For African Americans > 60 (> 60); eGFR For Non-African Americans > 60 (> 60)
[2016-07-21] MEDS: Gabapentin 300 MG CAPSULE PO SCH (08:45)
[2016-07-21] MEDS: *HR* HYDROcodone/Acet 7.5/325 mg TABLET PO PRN (08:45)
[2016-07-21] MEDS: Pantoprazole 40 MG VIAL IVP SCH (08:46)
--- NOTE | 2016-07-21 12:11 | Discharge Summary ---
Date of Encounter: 07/24/16 Time of Encounter: 12:07 - Discharge Diagnosis (1) Acute exacerbation of chronic low back pain Priority: Primary Status: Acute Comments: Likely muscle spasms, compression fracture ruled out (2) Bilateral flank pain Priority: Secondary Status: Acute Comments: likely related to chronic back pain (3) Hematochezia Priority: Secondary Status: Chronic Comments: History of hemorrhoids, hemoglobin has been stable (4) Irritable bowel syndrome (IBS) Priority: Secondary Status: Chronic Qualifiers: Irritable bowel syndrome type: with diarrhea Qualified Code(s): K58.0 - Irritable bowel syndrome with diarrhea (5) Morbid obesity with BMI of 45.0-49.9, adult Priority: Secondary Status: Chronic (6) Chronic diastolic congestive heart failure Priority: Secondary Status: Chronic (7) Type 2 diabetes mellitus Priority: Secondary Status: Chronic Qualifiers: Diabetes mellitus complication status: with unspecified complications 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 Qualified Code(s) : E11.8 - Type 2 diabetes mellitus with unspecified complications; Z79.4 - nursing home (current) use of insulin (8) GERD (gastroesophageal reflux disease) Priority: Secondary Status: Chronic Qualifiers: Esophagitis presence: esophagitis presence not specified Qualified Code(s) : K21.9 - Gastro-esophageal reflux disease without esophagitis (9) Fibromyalgia Priority: Secondary Status: Chronic (10) UTI (urinary tract infection) Priority: Secondary Status: Acute Qualifiers: Urinary tract infection type: acute cystitis Hematuria presence: with hematuria Qualified Code(s): N30.01 - Acute cystitis with hematuria (11) Transaminitis Priority: Secondary Status: Acute - Discharge Medications Prescriptions: Methocarbamol [Robaxin] 750 mg PO Q8HR PRN #40 tablet PRN Reason: muscle spasms HYDROcodone/Acet 7.5/325 mg [[place] 7.5-325 mg] 1 tab PO TID PRN #30 tablet PRN Reason: Pain Home Medications: Duloxetine HCl [Cymbalta] 60 mg PO DAILY 05/23/15 [History] Lactobacillus Acidophilus [Acidophilus] 1 tab PO DAILY 05/23/15 [History] Levothyroxine [Synthroid] 175 mcg PO DAILY 05/23/15 [History] Magnesium Oxide [Magnesium] 400 mg PO DAILY 05/23/15 [History] Promethazine [Phenergan] 25 mg PO PRN PRN 05/23/15 [History] Zolpidem [Ambien] 10 mg PO HS 05/23/15 [History] Gabapentin [Neurontin] 600 mg PO TID 01/17/16 [History] Insulin LISPRO [HumaLOG] 0 units SQ AD PRN 01/17/16 [History] Multivitamin [Multivitamins] 1 tab PO DAILY 01/17/16 [History] Aspirin [Lo-Dose Aspirin EC] 81 mg PO DAILY 02/14/16 [History] Atorvastatin [Lipitor] 80 mg PO DAILY 02/14/16 [History] Furosemide [Lasix] 20 mg PO DAILY 02/14/16 [History] Ondansetron HCl [Zofran] 4 mg PO Q6HR PRN #10 tablet 02/14/16 [Rx] Omeprazole [PriLOSEC] 40 mg PO DAILY #30 cap 03/16/16 [Rx] Amitriptyline [Elavil] 25 mg PO DAILY 07/19/16 [History] Carvedilol [Coreg] 6.25 mg PO BID 07/19/16 [History] Losartan [Cozaar] 25 mg PO DAILY 07/19/16 [History] HYDROcodone/Acet 7.5/325 mg [[place] 7.5-325 mg] 1 tab PO TID PRN #30 tablet 07/21 [Rx] Methocarbamol [Robaxin] 750 mg PO Q8HR PRN #40 tablet 07/21/16 [Rx] Allergies/Adverse Reactions: Allergies pregabalin [From Lyrica] Allergy (Verified 07/18/16 23:25) Swelling of Lip/Tongue/Throat [place] Allergy (Verified 07/18/16 23:25) Hives ESME Inhibitors Adverse Reaction (Verified 07/18/16 23:25) Cough codeine Adverse Reaction (Verified 07/18/16 23:25) Itching dihydroergotamine Adverse Reaction (Verified 07/18/16 23:25) Hallucinating [id number] Antimigraine Agents Adverse Reaction (Verified 07/18/16 23:25) Cough asolicitic acid Allergy (Uncoded 07/18/16 23:25) Rash Procedures/tests Complete & Pending: Procedures Performed prior 72 hours Category Date Time Status MR pelvis wo/w con [MR] Routine MRI 07/19/16 07:00 Completed Date of admission: 07/19/16 03:34 Primary care physician: Mona Payton MD Consults: 07/19/16 09:59 Consult to Invasive Line Access Team [CONS] Routine Reason for Consult: Limited Access Line Type: EPIV - Patient Status Disposition: Home, Self-Care Condition: Good Overall status at discharge: patient is back to baseline - Discharge Instructions Instructions: Methocarbamol (By mouth), Chronic Hypertension (DC), Back Pain ( GEN) Follow Up With: Mona Payton MD [Primary Care Provider] - 07/25/16 10:20 am Sawyer Mccoy DO [Partnered Physician] - 07/24/16 12:40 pm Additional Instructions: Follow with primary care physician within the next 7 days. Start Robaxin as needed. May use physical therapy as outpatient - Diet and Activity Activity: increase activity as tolerated Diet: low fat, low cholesterol Hospital course: Ms. Andrade is a 50 year old female PMHx diastolic CHF,OH,HTN,,DM,kidney stone, IBSD,migraines GERD, fibromyalgia Came complaining of a 10/10 sharp stabbing back pain that radiates towards her groin area on both sides. Pt stated pain was constant. She has had pain like this before when she had three kidney stones. Laying in lateral recumbant position was most comfortable for her and pain medication is the only thing that is helping her now. Had some vomiting, and burning with urination, and increased frequency. She stated that urinary symptoms sometimes occur when her blood sugars are running higher. She also c/o some bright red blood in her stools when she wipes which she states is somewhat normal for her secondary to hemorrhoids and IBSD. The patient was admitted to the hospital and had multiple imaging studies including CT scan of the abdomen that did not show any ureteral obstruction or stones. MRI of the pelvis was performed as the possibility of endometriosis was evaluated, this test did not show any positive finding. The next day the patient started complaining of new onset back pain and she felt like something popped on her back. X-rays of this lumbar spine and sacrum were performed did not show any fractures. Patient says that at the moment her pain is better controlled and is complaining of muscle spasms on her back. Also, she was started on ceftriaxone for possible UTI symptoms, 2 UAs were negative. The patient is stable to be discharged later today. She has not had any more episodes of hemorrhoid bleeding and hemoglobin has remained stable and today is 11.3. - Time Spent with Patient Total time spent providing and/or coordinating discharge services: Greater than 30 minutes (40 min) - Constitutional Vitals: Temp Pulse Resp BP Pulse Ox 97.9 F 92 17 183/66 97 07/21/16 07:08 07/21/16 07:08 07/21/16 07:08 07/21/16 07:08 07/21/16 07:08 General appearance: Present: A&O X 3, morbidly obese - Head Head exam: Present: atraumatic, normocephalic - Eye Eye exam: Present: PERRL, conjuntiva pink, sclera anicteric Pupils: Present: PERRL - Neck Neck exam general surgery: Present: supple, trachea midline. Absent: lymphadenopathy - Respiratory Respiratory exam: Present: CTAB. Absent: accessory muscle use, rales, rhonchi, wheezes - Cardiovascular Cardiovascular exam: Present: RRR, +S1, +S2. Absent: diastolic murmur, gallop, rubs, systolic murmur - GI/Abdominal GI/Abdominal exam: Present: distended, normal bowel sounds, soft, no peritoneal signs. Absent: tenderness - Extremities Exam Extremities exam: Present: warm, radial pulses palpable and symetrical. Absent : calf tenderness, cyanotic, pedal edema - Neurological Exam Neurological exam: Present: CN II-XII intact, oriented X3, no focal deficits. Absent: pronater drift, facial droop, speech deficit - Skin Skin exam: Present: dry, intact
[2016-07-21 12:15] VITALS: BP 195/62
== END 2016-07-21 13:45 | disposition home or self-care (01) ==
LOC: EMEROO 23:23 → 3BNU 23:23 → SUATTDRO 07-19 03:34 → 3BNU 07-19 04:31
PROVIDERS: ADMIT Registered Nurse; ATTEND Internal Medicine

== ENCOUNTER 2016-10-21 11:07 | Observation (INO) ==
--- NOTE | 2016-10-21 11:26 | Emergency Department Note ---
Disposition Clinical Impression: Hallucinosis, Abnormal liver function tests, Abnormal urinalysis, Obesity, Chest pain, Headache, Multiple falls, Head contusion, Arm bruise, HLD ( hyperlipidemia), HTN (hypertension), Diabetes, Type 2 diabetes mellitus, CAD ( coronary artery disease), History of anxiety disorder, History of depression Disposition: Admitted As Inpatient Referrals: NO,PCP [Primary Care Provider] - Forms: ED Satisfaction Letter General Adult HPI - General Chief complaint: ED Dizziness Stated complaint: dizziness, vision problems Source: patient, family Limitations: no limitations - History of Present Illness HPI Narrative: 50-year-old female reports emergency department with multiple concerns. 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 The patient follow-up with her primary care provider yesterday, she states that her primary care provider told her to come to the ED if there were worsening concerns. The patient states she has developed some chest pain radiating to the left arm. She also has a headache. There is no history of neck stiffness rash or fever. No convulsions. The patient reports she has been hallucinating, her male crusher feeder corroborates this history. She has been seeing people who are not there. There is no history of samantha shortness of breath. No history of leg swelling or pain or coughing up blood. No abdominal pain vomiting or diarrhea. The patient reports she has fallen a few times and hit her head a few days ago. There is no history of samantha syncope or seizure-like activity. The patient states that she is mostly worried about her chest pain and hallucinosis. Her blood sugar has been between 100-300 She has not insulin pump. She is diabetic, and has a history of hypertension and hypercholesterolemia. There is no history of rash. No problems moving the arms or legs independently, no unilateral arm or leg weakness or numbness. No slurred speech. She does describe some visual blurriness. Pain Scale: 6 - Related Data Home Medications Medication Instructions Recorded Confirmed Duloxetine HCl [Cymbalta] 60 mg PO DAILY 05/23/15 10/21/16 Lactobacillus Acidophilus 1 tab PO DAILY 05/23/15 10/21/16 [Acidophilus] Magnesium Oxide [Magnesium] 400 mg PO DAILY 05/23/15 10/21/16 Promethazine [Phenergan] 25 mg PO PRN PRN 05/23/15 10/21/16 Zolpidem [Ambien] 10 mg PO HS 05/23/15 10/21/16 Gabapentin [Neurontin] 600 mg PO TID 01/17/16 10/21/16 Multivitamin [Multivitamins] 1 tab PO DAILY 01/17/16 10/21/16 Aspirin [Lo-Dose Aspirin EC] 81 mg PO DAILY 02/14/16 10/21/16 Atorvastatin [Lipitor] 80 mg PO DAILY 02/14/16 10/21/16 Furosemide [Lasix] 20 mg PO DAILY 02/14/16 10/21/16 Amitriptyline [Elavil] 25 mg PO DAILY 07/19/16 10/21/16 Carvedilol [Coreg] 6.25 mg PO DAILY 07/19/16 10/21/16 Losartan [Cozaar] 25 mg PO DAILY 07/19/16 10/21/16 Albuterol Sulfate [Ventolin Hfa] 2 puff IH Q4H PRN 10/21/16 10/21/16 BuPROPion XL (24 HR) [Wellbutrin 150 mg PO DAILY 10/21/16 10/21/16 XL] Isomethepten/Caf/Acetaminophen 1 each PO Q8H PRN 10/21/16 10/21/16 [Prodrin Caplet] Liraglutide [Victoza 2-Mateusz] 1.2 mg SQ DAILY 10/21/16 10/21/16 Omeprazole [PriLOSEC] 20 mg PO DAILY 10/21/16 10/21/16 Prochlorperazine Maleate 10 mg PO TID PRN 10/21/16 10/21/16 [Compazine] Subcutaneous Insulin Pump [T:Slim] 90 - 120 unit MC DAILY 10/21/16 10/21/16 Previous Rx's Medication Instructions Recorded Ondansetron HCl [Zofran] 4 mg PO Q6HR PRN #10 tablet 02/14/16 HYDROcodone/Acet 7.5/325 mg [[place] 1 tab PO TID PRN #30 tablet 07/21/16 7.5-325 mg] Allergies Allergy/AdvReac Type Severity Reaction Status Date / Time pregabalin [From Lyrica] Allergy Swelling Verified 06/14/17 23:41 of Lip/Tongue/Throat [place] Allergy Hives Verified 10/18/16 23:41 ESME Inhibitors AdvReac Cough Verified 10/18/16 23:41 codeine AdvReac Itching Verified 10/18/16 23:41 dihydroergotamine AdvReac Hallucinati Verified 10/18/16 23:41 ng [id number] Antimigraine AdvReac Cough Verified 10/18/16 23:41 Agents asolicitic acid Allergy Rash Uncoded 10/18/16 23:41 All systems ED: reviewed and negative except as stated. 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 Absent: tenderness - Chest Chest inspection: Present: normal inspection, symmetric chest wall rise. Absent : tenderness - Respiratory Respiratory exam: Present: normal lung sounds bilaterally - Cardiovascular Cardiovascular exam: Present: regular rate, normal rhythm, normal heart sounds - Abdominal Exam Abdominal exam: Present: soft, Non-Tender, normal bowel sounds. Absent: tenderness, distention, guarding, rebound, rigidity, pulsatile mass - Extremities Exam Extremities exam: Present: normal inspection, full ROM, normal capillary refill. Absent: tenderness, pedal edema, joint swelling, calf tenderness - Expanded Lower Extremity Exam Lower leg exam: Absent: Homans' sign Neurovascular/Tendon exam: Present: normal capillary refill. Absent: motor deficit, sensory deficit, tendon deficit, extremity cold to touch, pallor - Back Exam Back exam: Present: normal inspection, full ROM. Absent: tenderness, CVA tenderness (R), CVA tenderness (L), vertebral tenderness - Neurological Exam Neurological exam: Present: alert, oriented X3, CN II-XII intact. Absent: motor sensory deficit - Psychiatric Psychiatric exam: Present: normal affect, normal mood - Skin Skin exam: Present: warm, dry, intact, normal color. Absent: rash, cyanosis, diaphoresis, erythema, pallor, mottled Course Vital Signs Temperature 98 F 10/21/16 11:12 Pulse Rate 99 10/21/16 11:12 Respiratory Rate 18 10/21/16 11:12 Blood Pressure 173/87 10/21/16 11:12 O2 Sat by Pulse Oximetry 98 10/21/16 11:12 Temperature 98 F 10/21/16 11:12 Pulse Rate 85 10/21/16 14:30 Respiratory Rate 16 10/21/16 14:30 Blood Pressure 136/88 10/21/16 14:30 O2 Sat by Pulse Oximetry 98 10/21/16 14:30 Oxygen Delivery Oxygen Delivery Nasal Cannula Medical Decision Making - [facility] Narrative Medical decision making narrative: Is over 50, she is morbidly obese, states she has a history of recent MO, has a history of hypertension, hyperlipidemia, and diabetes mellitus, she presents with chest pain on the left radiating to the left. She also describes a headache and multiple falls. She states she hit her head a few days ago. She also bruised her left forearm. The patient's CT is negative. She is describing visual hallucinosis indicating altered mental status and/or depressed Glascow coma scale at 14. The patient has no neck pain on palpation, she does not have a significant head injury that I can see. A head CT was performed to evaluate for headaches and hallucinosis and confusion. Based on the patient's vascular comorbidities including hyperlipidemia, hypertension, diabetes, morbid obesity, age over 50, stated history of MO, with concerns regarding chest pain, confusion and hallucinosis, I thought it would be appropriate to admit the patient to the hospital. The patient was given aspirin the ED. Chest x-ray shows no evidence of acute intrathoracic process. She has no history of aortic aneurysm. On review, no recent CT chest has been performed. I discussed the case with the hospitalist on-call who has accepted the patient to their care. A CT scan of the chest has been ordered. The patient is currently stable. - Lab Data Lab results reviewed: Yes I reviewed the patient's lab results. Result diagrams: 10/21/16 13:02 Lab Results 10/21/16 10/21/16 10/21/16 Range/Units 13:02 13:02 13:02 WBC 10.4 (4.3-11.1) K/mcL RBC 3.99 (3.82-4.97) M/mcL Hgb 12.4 (11.5-15.4) g/dL Hct 35.9 (35.3-44.9) % MCV 90.0 (83.0-100.0) fL MCH 31.1 (28.0-33.3) pg MCHC 34.5 (31.6-35.5) g/dL RDW 13.2 (11.5-14.5) % Plt Count 220 (140-400) K/mcL MPV 10.6 (9.4-12.4) fL Immature Gran % 0.6 (0-4) % Seg Neutrophils % 61.1 % Lymphocytes % 29.1 % Monocytes % 6.8 % Eosinophils % 1.8 % Basophils % 0.6 % Neutrophils # 6.4 (1.6-8.9) K/mcL Lymphocytes # 3.0 (0.6-4.6) K/mcL Monocytes # 0.7 (0.0-1.3) K/mcL Eosinophils # 0.2 (0.0-0.6) K/mcL Basophils # 0.1 (0.0-0.2) K/mcL Immature Plt Fraction 7.5 H (1.1-6.1) % PT 12.8 H (9.4-12.1) Seconds INR 1.2 Lactic Acid (0.5-2.2) mmol/L Total Bilirubin (0.2-1.2) mg/dL Direct Bilirubin (0.0-0.5) mg/dL Indirect Bilirubin (0.0-1.2) mg/dL AST (5-34) Units/L ALT (0-55) Units/L Alkaline Phosphatase (38-126) Units/L Ammonia (18-72) mcmol/L Troponin I 0.02 (0-0.03) ng/mL C-Reactive Protein (Less than 5) mg/L Serum Total Protein (6.0-8.3) g/dL Albumin (3.5-5.0) g/dL Globulin (2.4-3.5) g/dL Albumin/Globulin Ratio (1.1-2.2) Lipase (8-78) Units/L TSH (0.350-4.840) mcIU/mL Urine Color (Yellow) Urine Clarity (Clear) Urine pH (5.0-8.0) pH Units Ur Specific [place] (1.010-1.025) Urine Protein (Neg-Trace) mg/dL Urine Glucose (UA) (Normal) mg/dL Urine Ketones (Negative) mg/dL Urine Blood (Negative) Urine Nitrite (Negative) Urine Bilirubin (Negative) Urine Urobilinogen (Normal) mg/dL Ur Leukocyte Esterase (Negative) Urine Microscopic RBC (0-3) per hpf Urine Microscopic WBC (0-3) per hpf Ur Squamous Epith Cells (None-Few) per lpf Urine Bacteria (None-Few) per hpf Hyaline Casts (None-Few) per lpf Ur Culture Indicated? (NO) Urine Opiates Screen (Xnrhfs=074) ng/mL Ur Barbiturates Screen (Exvptd=921) ng/mL Ur Phencyclidine Scrn (Cutoff=25) ng/mL Ur Amphetamines Screen (Sxhksc=3070) ng/mL U Benzodiazepines Scrn (Tuuhiy=917) ng/mL Urine Cocaine Screen (Cutoff= 300) ng/mL U Marijuana (THC) Screen (Cutoff = 50) ng/mL 10/21/16 10/21/16 10/21/16 Range/Units 13:02 13:02 13:02 WBC (4.3-11.1) K/mcL RBC (3.82-4.97) M/mcL Hgb (11.5-15.4) g/dL Hct (35.3-44.9) % MCV (83.0-100.0) fL MCH (28.0-33.3) pg MCHC (31.6-35.5) g/dL RDW (11.5-14.5) % Plt Count (140-400) K/mcL MPV (9.4-12.4) fL Immature Gran % (0-4) % Seg Neutrophils % % Lymphocytes % % Monocytes % % Eosinophils % % Basophils % % Neutrophils # (1.6-8.9) K/mcL Lymphocytes # (0.6-4.6) K/mcL Monocytes # (0.0-1.3) K/mcL Eosinophils # (0.0-0.6) K/mcL Basophils # (0.0-0.2) K/mcL Immature Plt Fraction (1.1-6.1) % PT (9.4-12.1) Seconds INR Lactic Acid 1.8 (0.5-2.2) mmol/L Total Bilirubin 0.5 (0.2-1.2) mg/dL Direct Bilirubin 0.2 (0.0-0.5) mg/dL Indirect Bilirubin 0.3 (0.0-1.2) mg/dL AST 89 H (5-34) Units/L ALT 63 H (0-55) Units/L Alkaline Phosphatase 115 (38-126) Units/L Ammonia (18-72) mcmol/L Troponin I (0-0.03) ng/mL C-Reactive Protein 5 H (Less than 5) mg/L Serum Total Protein 7.2 (6.0-8.3) g/dL Albumin 3.6 (3.5-5.0) g/dL Globulin 3.6 H (2.4-3.5) g/dL Albumin/Globulin Ratio 1.0 L (1.1-2.2) Lipase 15 (8-78) Units/L TSH (0.350-4.840) mcIU/mL Urine Color (Yellow) Urine Clarity (Clear) Urine pH (5.0-8.0) pH Units Ur Specific [place] (1.010-1.025) Urine Protein (Neg-Trace) mg/dL Urine Glucose (UA) (Normal) mg/dL Urine Ketones (Negative) mg/dL Urine Blood (Negative) Urine Nitrite (Negative) Urine Bilirubin (Negative) Urine Urobilinogen (Normal) mg/dL Ur Leukocyte Esterase (Negative) Urine Microscopic RBC (0-3) per hpf Urine Microscopic WBC (0-3) per hpf Ur Squamous Epith Cells (None-Few) per lpf Urine Bacteria (None-Few) per hpf Hyaline Casts (None-Few) per lpf Ur Culture Indicated? (NO) Urine Opiates Screen (Dkhidx=609) ng/mL Ur Barbiturates Screen (Eeiqph=015) ng/mL Ur Phencyclidine Scrn (Cutoff=25) ng/mL Ur Amphetamines Screen (Ygkamg=1465) ng/mL U Benzodiazepines Scrn (Zubwtt=046) ng/mL Urine Cocaine Screen (Cutoff= 300) ng/mL U Marijuana (THC) Screen (Cutoff = 50) ng/mL 10/21/16 10/21/16 10/21/16 Range/Units 13:02 13:02 13:30 WBC (4.3-11.1) K/mcL RBC (3.82-4.97) M/mcL Hgb (11.5-15.4) g/dL Hct (35.3-44.9) % MCV (83.0-100.0) fL MCH (28.0-33.3) pg MCHC (31.6-35.5) g/dL RDW (11.5-14.5) % Plt Count (140-400) K/mcL MPV (9.4-12.4) fL Immature Gran % (0-4) % Seg Neutrophils % % Lymphocytes % % Monocytes % % Eosinophils % % Basophils % % Neutrophils # (1.6-8.9) K/mcL Lymphocytes # (0.6-4.6) K/mcL Monocytes # (0.0-1.3) K/mcL Eosinophils # (0.0-0.6) K/mcL Basophils # (0.0-0.2) K/mcL Immature Plt Fraction (1.1-6.1) % PT (9.4-12.1) Seconds INR Lactic Acid (0.5-2.2) mmol/L Total Bilirubin (0.2-1.2) mg/dL Direct Bilirubin (0.0-0.5) mg/dL Indirect Bilirubin (0.0-1.2) mg/dL AST (5-34) Units/L ALT (0-55) Units/L Alkaline Phosphatase (38-126) Units/L Ammonia 42 (18-72) mcmol/L Troponin I (0-0.03) ng/mL C-Reactive Protein (Less than 5) mg/L Serum Total Protein (6.0-8.3) g/dL Albumin (3.5-5.0) g/dL Globulin (2.4-3.5) g/dL Albumin/Globulin Ratio (1.1-2.2) Lipase (8-78) Units/L TSH 1.286 (0.350-4.840) mcIU/mL Urine Color (Yellow) Urine Clarity (Clear) Urine pH (5.0-8.0) pH Units Ur Specific [place] (1.010-1.025) Urine Protein (Neg-Trace) mg/dL Urine Glucose (UA) (Normal) mg/dL Urine Ketones (Negative) mg/dL Urine Blood (Negative) Urine Nitrite (Negative) Urine Bilirubin (Negative) Urine Urobilinogen (Normal) mg/dL Ur Leukocyte Esterase (Negative) Urine Microscopic RBC (0-3) per hpf Urine Microscopic WBC (0-3) per hpf Ur Squamous Epith Cells (None-Few) per lpf Urine Bacteria (None-Few) per hpf Hyaline Casts (None-Few) per lpf Ur Culture Indicated? (NO) Urine Opiates Screen Positive H (Hrrvyc=173) ng/mL Ur Barbiturates Screen Negative (Thdgti=158) ng/mL Ur Phencyclidine Scrn Negative (Cutoff=25) ng/mL Ur Amphetamines Screen Negative (Ziwfaj=9546) ng/mL U Benzodiazepines Scrn Negative (Chtzgt=024) ng/mL Urine Cocaine Screen Negative (Cutoff= 300) ng/mL U Marijuana (THC) Screen Negative (Cutoff = 50) ng/mL 10/21/16 Range/Units 13:31 WBC (4.3-11.1) K/mcL RBC (3.82-4.97) M/mcL Hgb (11.5-15.4) g/dL Hct (35.3-44.9) % MCV (83.0-100.0) fL MCH (28.0-33.3) pg MCHC (31.6-35.5) g/dL RDW (11.5-14.5) % Plt Count (140-400) K/mcL MPV (9.4-12.4) fL Immature Gran % (0-4) % Seg Neutrophils % % Lymphocytes % % Monocytes % % Eosinophils % % Basophils % % Neutrophils # (1.6-8.9) K/mcL Lymphocytes # (0.6-4.6) K/mcL Monocytes # (0.0-1.3) K/mcL Eosinophils # (0.0-0.6) K/mcL Basophils # (0.0-0.2) K/mcL Immature Plt Fraction (1.1-6.1) % PT (9.4-12.1) Seconds INR Lactic Acid (0.5-2.2) mmol/L Total Bilirubin (0.2-1.2) mg/dL Direct Bilirubin (0.0-0.5) mg/dL Indirect Bilirubin (0.0-1.2) mg/dL AST (5-34) Units/L ALT (0-55) Units/L Alkaline Phosphatase (38-126) Units/L Ammonia (18-72) mcmol/L Troponin I (0-0.03) ng/mL C-Reactive Protein (Less than 5) mg/L Serum Total Protein (6.0-8.3) g/dL Albumin (3.5-5.0) g/dL Globulin (2.4-3.5) g/dL Albumin/Globulin Ratio (1.1-2.2) Lipase (8-78) Units/L TSH (0.350-4.840) mcIU/mL Urine Color Dark Yellow (Yellow) Urine Clarity Cloudy A (Clear) Urine pH 5.5 (5.0-8.0) pH Units Ur Specific [place] > 1.030 H (1.010-1.025) Urine Protein 100 H (Neg-Trace) mg/dL Urine Glucose (UA) Normal (Normal) mg/dL Urine Ketones Trace H (Negative) mg/dL Urine Blood Negative (Negative) Urine Nitrite Negative (Negative) Urine Bilirubin Small H (Negative) Urine Urobilinogen Normal (Normal) mg/dL Ur Leukocyte Esterase Negative (Negative) Urine Microscopic RBC 3-5 H (0-3) per hpf Urine Microscopic WBC 3-5 H (0-3) per hpf Ur Squamous Epith Cells Many H (None-Few) per lpf Urine Bacteria None Seen (None-Few) per hpf Hyaline Casts None Seen (None-Few) per lpf Ur Culture Indicated? NO (NO) Urine Opiates Screen (Flfivq=006) ng/mL Ur Barbiturates Screen (Kxcwkd=232) ng/mL Ur Phencyclidine Scrn (Cutoff=25) ng/mL Ur Amphetamines Screen (Vmxejh=1129) ng/mL U Benzodiazepines Scrn (Wjczbn=858) ng/mL Urine Cocaine Screen (Cutoff= 300) ng/mL U Marijuana (THC) Screen (Cutoff = 50) ng/mL - Radiology Data Radiology results reviewed: Yes I reviewed the patient's radiology results.
[2016-10-21 13:22] LABS: Basophils # 0.1 K/mcL (0.0-0.2); Basophils % 0.6 %; Eosinophils # 0.2 K/mcL (0.0-0.6); Eosinophils % 1.8 %; Hematocrit 35.9 % (35.3-44.9); Hemoglobin 12.4 g/dL (11.5-15.4); Immature Granulocytes % 0.6 % (0-4); Immature Platelets 7.5 % (1.1-6.1); Lymphocytes % 29.1 %; Mean Corpuscular HGB Conc 34.5 g/dL (31.6-35.5); Mean Corpuscular Hemoglobin 31.1 pg (28.0-33.3); Mean Platelet Volume 10.6 fL (9.4-12.4); Monocytes # 0.7 K/mcL (0.0-1.3); Monocytes % 6.8 %; Neutrophils # 6.4 K/mcL (1.6-8.9); Platelet Count 220 K/mcL (140-400); Red Blood Count 3.99 M/mcL (3.82-4.97); Red Cell Distribution Width 13.2 % (11.5-14.5); Segmented Neutrophils % 61.1 %
[2016-10-21] MEDS ORDERED: Aspirin 325 MG TABLET PO ONE (13:27)
[2016-10-21 13:38] LABS: Bilirubin,Urine Small (Negative); Blood,Urine Negative (Negative); Clarity,Urine Cloudy (Clear); Color,Urine Dark Yellow (Yellow); Glucose,Urine (UA) Normal (Normal); Ketones,Urine Trace mg/dL (Negative); Leukocyte Esterase,Urine Negative (Negative); Nitrite,Urine Negative (Negative); PH,Urine 5.5 pH Units (5.0-8.0); Protein,Urine 100 mg/dL (Neg-Trace); Specific Gravity,Urine > 1.030 (1.010-1.025); Urobilinogen,Urine Normal (Normal)
[2016-10-21 13:41] LABS: Lipase 15 Units/L (8-78)
[2016-10-21 13:41] LABS: Bacteria,Urine None Seen per hpf (None-Few); Hyaline Casts,Urine None Seen per lpf (None-Few); Squamous Epithelial Cell,Urine Many per lpf (None-Few)
[2016-10-21 13:42] LABS: Albumin 3.6 g/dL (3.5-5.0); Bilirubin,Direct 0.2 mg/dL (0.0-0.5); Bilirubin,Indirect 0.3 mg/dL (0.0-1.2); Bilirubin,Total 0.5 mg/dL (0.2-1.2); Globulin 3.6 g/dL (2.4-3.5); INR 1.2; Prothrombin Time 12.8 Seconds (9.4-12.1); Total Protein 7.2 g/dL (6.0-8.3)
[2016-10-21 13:44] LABS: Amphetamine Screen,Urine Negative ng/mL (Cutoff=1000); Barbiturate Screen,Urine Negative ng/mL (Cutoff=200); Benzodiazepines Screen,Urine Negative ng/mL (Cutoff=200); Cannabinoid Screen,Urine Negative ng/mL (Cutoff = 50); Cocaine Screen,Urine Negative ng/mL (Cutoff= 300); Opiate Screen,Urine Positive ng/mL (Cutoff=300); Phencyclidine Screen,Urine Negative ng/mL (Cutoff=25)
[2016-10-21 13:56] LABS: C-Reactive Protein 5 mg/L (Less than 5)
[2016-10-21] MEDS ORDERED: Ondansetron 4 MG/2 ML VIAL IVP ONE (14:15)
[2016-10-21] MEDS ORDERED: *HR* Morphine 2 MG/ML SYRINGE IVP ONE (14:16)
[2016-10-21 15:40] LABS: BUN/Creatinine Ratio 13 (6-26); Blood Urea Nitrogen 14 mg/dL (7-20); Calcium 9.4 mg/dL (8.6-10.8); Carbon Dioxide 21 mEq/L (19-29); Chloride 104 mEq/L (98-109); Glucose 170 mg/dL (70-99); Osmolality,Calculated 294 (280-300); Potassium 3.6 mEq/L (3.5-4.5); Sodium 140 mEq/L (136-145); eGFR For African Americans > 60 (> 60); eGFR For Non-African Americans 56 (> 60)
[2016-10-21] MEDS ORDERED: Naloxone 0.4 MG/ML INJ IVP PRN (16:52)
[2016-10-21] MEDS ORDERED: [UNRECOGNIZED DRUG - SUPPLY] MC SCH (17:00)
--- NOTE | 2016-10-21 17:14 | Internal Med History&Physical ---
<Chet Hernandez - Last Filed: 10/21/16 18:31> Date of Encounter: 10/21/16 Internal Medicine - H&P: HPI History of present illness: Ms. Andrade is a 50 year old female Internal Medicine - H&P: Meds Duloxetine HCl [Cymbalta] 60 mg PO DAILY 05/23/15 [History] Lactobacillus Acidophilus [Acidophilus] 1 tab PO DAILY 05/23/15 [History] Magnesium Oxide [Magnesium] 400 mg PO DAILY 05/23/15 [History] Promethazine [Phenergan] 25 mg PO PRN PRN 05/23/15 [History] Zolpidem [Ambien] 10 mg PO HS 05/23/15 [History] Gabapentin [Neurontin] 600 mg PO TID 01/17/16 [History] Multivitamin [Multivitamins] 1 tab PO DAILY 01/17/16 [History] Aspirin [Lo-Dose Aspirin EC] 81 mg PO DAILY 02/14/16 [History] Atorvastatin [Lipitor] 80 mg PO DAILY 02/14/16 [History] Furosemide [Lasix] 20 mg PO DAILY 02/14/16 [History] Ondansetron HCl [Zofran] 4 mg PO Q6HR PRN #10 tablet 02/14/16 [Rx] Amitriptyline [Elavil] 25 mg PO DAILY 07/19/16 [History] Carvedilol [Coreg] 6.25 mg PO DAILY 07/19/16 [History] Losartan [Cozaar] 25 mg PO DAILY 07/19/16 [History] HYDROcodone/Acet 7.5/325 mg [[place] 7.5-325 mg] 1 tab PO TID PRN #30 tablet 07/21 [Rx] Albuterol Sulfate [Ventolin Hfa] 2 puff IH Q4H PRN 10/21/16 [History] BuPROPion XL (24 HR) [Wellbutrin XL] 150 mg PO DAILY 10/21/16 [History] Isomethepten/Caf/Acetaminophen [Prodrin Caplet] 1 each PO Q8H PRN 10/21/16 [ History] Liraglutide [Victoza 2-Mateusz] 1.2 mg SQ DAILY 10/21/16 [History] Omeprazole [PriLOSEC] 20 mg PO DAILY 10/21/16 [History] Prochlorperazine Maleate [Compazine] 10 mg PO TID PRN 10/21/16 [History] Subcutaneous Insulin Pump [T:Slim] 90 - 120 unit MC DAILY 10/21/16 [History] Allergies pregabalin [From Lyrica] Allergy (Verified 10/18/16 23:41) Swelling of Lip/Tongue/Throat [place] Allergy (Verified 10/18/16 23:41) Hives ESME Inhibitors Adverse Reaction (Verified 10/18/16 23:41) Cough codeine Adverse Reaction (Verified 10/18/16 23:41) Itching dihydroergotamine Adverse Reaction (Verified 10/18/16 23:41) Hallucinating prochlorperazine [From Compazine] Adverse Reaction (Verified 10/21/16 18:09) Hallucinating [id number] Antimigraine Agents Adverse Reaction (Verified 10/18/16 23:41) Cough asolicitic acid Allergy (Uncoded 10/18/16 23:41) Rash All Systems PM: A 10-system review of systems was performed and is negative for pertinent findings except as documented above in the HPI. - Constitutional Vitals: Temp Pulse Resp BP Pulse Ox 98.3 F 83 15 123/90 94 10/21/16 16:31 10/21/16 16:31 10/21/16 16:31 10/21/16 16:31 10/21/16 16:31 Internal Med - H&P Results - Labs CBC & Chem 7: 10/21/16 13:02 10/21/16 13:02 - Attending Attestation I examined this patient and my medical decision-making was reviewed with the Advanced Practice Nurse. I agree with the documented findings, disposition and treatment plan as described except to the extent set forth below. On exam the patient is no acute distress awake alert oriented 3. Heart exam reveals regular rate and rhythm S1-S2, no murmurs. Abdomen is obese, soft and nontender. Plan: We will place in observation. Trend troponin. Hold sedative and neurotropic medication which could cause hallucinations. <Ira Mcgill - Last Filed: 10/21/16 22:00> Date of Encounter: 10/21/16 Time of Encounter: 17:07 Assessment and Plan (1) Chest pain Current visit: No Status: Acute Patient reports constant chest pain for the last week radiating to left arm and described and pressure and burning. She points to epigastric area when describing pain. Troponin normal at 0.02. EKG without ischemic changes. Stress test 03/2016 showed no evidence of ischemia. Echo 01/2016 showed LVEF of 65% and moderate diastolic dysfunction. Possibly indegestion, but given risk factors of HTN, DM, obesity, will rule out ACS. Give GI coctail. 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 This started [address] head and chest were negative for acute abnormality. She was just started on compazine for help with her migraines on 10/13 by her PCP. Will hold compazine. Monitor for improvement. (3) Type 2 diabetes mellitus Current visit: Yes Status: Chronic Patient on insulin pump. Check blood sugars ACHS. Hypoglycemic protocol. Qualifiers: Diabetes mellitus complication status: with unspecified complications Diabetes mellitus intermediate insulin use: with intermediate use Qualified Code(s) : E11.8 - Type 2 diabetes mellitus with unspecified complications; Z79.4 - group home (current) use of insulin (4) Hypertension Current visit: No Status: Chronic Continue home doses of carvedilol, cozaar Qualifiers: Hypertension type: essential hypertension Qualified Code(s): I10 - Essential (primary) hypertension (5) DVT prophylaxis Current visit: Yes Status: Acute anti-embolic stockings lovenox 40mg SQ daily Internal Medicine - H&P: HPI Chief complaint: chest pain, hallucinations Admitted From: Emergency Dept Plans for Post Hospital Care: Home History of present illness: Ms. Andrade is a 50 year old female with diabetes, hypertension, hyperlipidemia, anxiety, depression, IBS, fibromyalgia, asthma, CHF, history of a TIA presents emergency department today with multiple complaints including chest pain radiating to her left arm, lightheadedness, shortness of breath on exertion, palpitations, hallucinations. Patient reports that her chest pain comes and goes usually lasts a few days but her recent chest pain has been constant for the last week and radiates to her left arm. She describes it as a pressure and burning sensation and points to the epigastric area when describing the pain. She reports constant headaches since she was 11 years old, she reports chronic nausea but has been vomiting recently as well, she attributes this to her IBS however she does have significant diabetes history and may be gastroparesis. Patient reports that she has been seeing and hearing things that are not there, this started 3 days ago. She states she sees people in the room and talks to them, these people are her family members and people she knows, but they are not there. Not currently having any hallucinations. Evaluation in the emergency department included a troponin which was negative at 0.02, labs are grossly normal, blood sugar was 170, white blood cell count was normal at 10.4. X-ray was normal at 1.8. Mildly elevated LFTs which with AST of 89 and ALT of 63. CT of the head was negative for any acute abnormality. CT of the chest showed no acute cardiopulmonary disease, and fatty liver. On exam, patient is morbidly obese, alert and oriented, in no acute distress. Lungs are clear bilaterally to auscultation, heart has regular rate and rhythm. Cranial nerves are intact, strength equal bilaterally, no pronator drift. She has normal bowel sounds, abdomen is soft, tender to palpation in the epigastric and left upper quadrant. She does have trace bilateral lower extremity edema. Past Med Surg Social Fam HX - Past Medical History Medical history: arthritis, asthma, CHF, GI bleed, hyperlipidemia, hypertension , migraine, TIA Psychiatric history: anxiety, depression - Past Surgical History Surgical History: appendectomy, cholecystectomy, orthopedic, other, thyroidectomy, other - Social History Smoking Status: Former smoker (35 pack year history) Smokeless Tobacco Status: No (Stopped smoking 2 years ago) Alcohol use: none Drug use: none - Family History Father Hx Family Cardiac Disorders: Yes (Stroke, CO, HTN, HLD) Hx Family Respiratory Disorders: Yes (COPD) Hx Family Cancer: No Hx Family GI Disorders: No Hx Family Endocrine Disorder: Yes (DM) Hx Family Neuromuscular Disorders: Yes (Neuropathy) Hx Family Neurologic Disorders: Yes (Alzheimers) Hx Family HEENT Disorders: No Hx Family Autoimmune Disorders: No Mother Hx Family Neuromuscular Disorders: Yes (parkinsons) All Systems PM: A 10-system review of systems was performed and is negative for pertinent findings except as documented above in the HPI. - Constitutional Constitutional: no chills, no fever(s), no night sweats - EENT Eyes: no change in vision, no discharge, no pain, no photophobia Ears: no ear discharge, no ear pain, no tinnitus Nose, mouth and throat: no dysphagia, no nasal discharge, no neck pain, no sore throat - Cardiovascular Cardiovascular ROS IM: chest pain, dyspnea on exertion, lightheadedness, palpitations, no diaphoresis, no dyspnea, no syncope - Respiratory Respiratory: cough, dyspnea on exertion, no dyspnea, no wheezing, no excessive phlegm production - Gastrointestinal Gastrointestinal: abdominal pain, nausea, vomiting, no diarrhea, no hematemesis , no hematochezia, no melena - Genitourinary Genitourinary: no change in urinary stream, no dysuria, no flank pain, no hematuria - Musculoskeletal Musculoskeletal ROS IM: no numbness, no tingling - Integumentary Integumentary IM: no rash, no unusual bruising - Neurological Neurological ROS: other visual disturbances, no confusion, no convulsions, no focal weakness, no numbness, no tingling, no tremor(s) - Hematologic/Lymphatic Hematologic/Lymphatic: no easy bruising - Constitutional Vitals: Temp Pulse Resp BP Pulse Ox 98.3 F 83 15 123/90 94 10/21/16 16:31 10/21/16 16:31 10/21/16 16:31 10/21/16 16:31 10/21/16 16:31 General appearance: Present: A&O X 3, morbidly obese, pleasant, no acute distress - Head Head exam: Present: atraumatic, normocephalic - Eye Eye exam: Present: PERRL, conjuntiva pink, sclera anicteric Pupils: Present: PERRL - Neck Neck exam general surgery: Present: supple, trachea midline. Absent: lymphadenopathy - Respiratory Respiratory exam: Present: CTAB. Absent: accessory muscle use, rales, rhonchi, wheezes - Cardiovascular Cardiovascular exam: Present: RRR, +S1, +S2. Absent: diastolic murmur, gallop, rubs, systolic murmur - GI/Abdominal GI/Abdominal exam: Present: normal bowel sounds, soft, tenderness (epigastric and LUQ), no peritoneal signs. Absent: distended - Extremities Exam Extremities exam: Present: pedal edema (trace), warm, radial pulses palpable and symetrical. Absent: calf tenderness, cyanotic - Neurological Exam Neurological exam: Present: CN II-XII intact, oriented X3, no focal deficits. Absent: pronater drift, facial droop, speech deficit - Expanded Neurological Exam Cranial Nerves: EOM's intact PM: Normal, gag reflex PM: Normal, nystagmus PM: Normal, tongue deviation PM: Normal Cerebellar function: Romberg: Normal Upper motor neuron: pronator drift: Normal Neuro motor strength exam: LUE: 5, RUE: 5, LLE: 5, RLE: 5 - Skin Skin exam: Present: dry, intact Internal Med - H&P Results - Labs CBC & Chem 7: 10/21/16 13:02 10/21/16 13:02 Labs: All Lab Results (24 Hours) 10/21/16 10/21/16 10/21/16 Range/Units 13:02 13:02 13:02 WBC 10.4 (4.3-11.1) K/mcL RBC 3.99 (3.82-4.97) M/mcL Hgb 12.4 (11.5-15.4) g/dL Hct 35.9 (35.3-44.9) % MCV 90.0 (83.0-100.0) fL MCH 31.1 (28.0-33.3) pg MCHC 34.5 (31.6-35.5) g/dL RDW 13.2 (11.5-14.5) % Plt Count 220 (140-400) K/mcL MPV 10.6 (9.4-12.4) fL Immature Gran % 0.6 (0-4) % Seg Neutrophils % 61.1 % Lymphocytes % 29.1 % Monocytes % 6.8 % Eosinophils % 1.8 % Basophils % 0.6 % Neutrophils # 6.4 (1.6-8.9) K/mcL Lymphocytes # 3.0 (0.6-4.6) K/mcL Monocytes # 0.7 (0.0-1.3) K/mcL Eosinophils # 0.2 (0.0-0.6) K/mcL Basophils # 0.1 (0.0-0.2) K/mcL Immature Plt Fraction 7.5 H (1.1-6.1) % PT 12.8 H (9.4-12.1) Seconds INR 1.2 Sodium 140 (136-145) mEq/L Potassium 3.6 (3.5-4.5) mEq/L Chloride 104 (98-109) mEq/L Carbon Dioxide 21 (19-29) mEq/L BUN 14 (7-20) mg/dL Creatinine 1.04 (0.57-1.11) mg/dL Est GFR ( Amer) > 60 (> 60) Est GFR (Non-Af Amer) 56 L (> 60) BUN/Creatinine Ratio 13 (6-26) Glucose 170 H (70-99) mg/dL POC Glucose (58-89) Calculated Osmolality 294 (280-300) Lactic Acid (0.5-2.2) mmol/L Calcium 9.4 (8.6-10.8) mg/dL Total Bilirubin (0.2-1.2) mg/dL Direct Bilirubin (0.0-0.5) mg/dL Indirect Bilirubin (0.0-1.2) mg/dL AST (5-34) Units/L ALT (0-55) Units/L Alkaline Phosphatase (38-126) Units/L Ammonia (18-72) mcmol/L Troponin I (0-0.03) ng/mL C-Reactive Protein (Less than 5) mg/L Serum Total Protein (6.0-8.3) g/dL Albumin (3.5-5.0) g/dL Globulin (2.4-3.5) g/dL Albumin/Globulin Ratio (1.1-2.2) Lipase (8-78) Units/L TSH (0.350-4.840) mcIU/mL Urine Color (Yellow) Urine Clarity (Clear) Urine pH (5.0-8.0) pH Units Ur Specific [place] (1.010-1.025) Urine Protein (Neg-Trace) mg/dL Urine Glucose (UA) (Normal) mg/dL Urine Ketones (Negative) mg/dL Urine Blood (Negative) Urine Nitrite (Negative) Urine Bilirubin (Negative) Urine Urobilinogen (Normal) mg/dL Ur Leukocyte Esterase (Negative) Urine Microscopic RBC (0-3) per hpf Urine Microscopic WBC (0-3) per hpf Ur Squamous Epith Cells (None-Few) per lpf Urine Bacteria (None-Few) per hpf Hyaline Casts (None-Few) per lpf Ur Culture Indicated? (NO) Urine Opiates Screen (Ippake=392) ng/mL Ur Barbiturates Screen (Nealjn=942) ng/mL Ur Phencyclidine Scrn (Cutoff=25) ng/mL Ur Amphetamines Screen (Oeqgpp=2913) ng/mL U Benzodiazepines Scrn (Qjxwdd=456) ng/mL Urine Cocaine Screen (Cutoff= 300) ng/mL U Marijuana (THC) Screen (Cutoff = 50) ng/mL 10/21/16 10/21/16 10/21/16 Range/Units 13:02 13:02 13:02 WBC (4.3-11.1) K/mcL RBC (3.82-4.97) M/mcL Hgb (11.5-15.4) g/dL Hct (35.3-44.9) % MCV (83.0-100.0) fL MCH (28.0-33.3) pg MCHC (31.6-35.5) g/dL RDW (11.5-14.5) % Plt Count (140-400) K/mcL MPV (9.4-12.4) fL Immature Gran % (0-4) % Seg Neutrophils % % Lymphocytes % % Monocytes % % Eosinophils % % Basophils % % Neutrophils # (1.6-8.9) K/mcL Lymphocytes # (0.6-4.6) K/mcL Monocytes # (0.0-1.3) K/mcL Eosinophils # (0.0-0.6) K/mcL Basophils # (0.0-0.2) K/mcL Immature Plt Fraction (1.1-6.1) % PT (9.4-12.1) Seconds INR Sodium (136-145) mEq/L Potassium (3.5-4.5) mEq/L Chloride (98-109) mEq/L Carbon Dioxide (19-29) mEq/L BUN (7-20) mg/dL Creatinine (0.57-1.11) mg/dL Est GFR ( Amer) (> 60) Est GFR (Non-Af Amer) (> 60) BUN/Creatinine Ratio (6-26) Glucose (70-99) mg/dL POC Glucose (58-89) Calculated Osmolality (280-300) Lactic Acid 1.8 (0.5-2.2) mmol/L Calcium (8.6-10.8) mg/dL Total Bilirubin 0.5 (0.2-1.2) mg/dL Direct Bilirubin 0.2 (0.0-0.5) mg/dL Indirect Bilirubin 0.3 (0.0-1.2) mg/dL AST 89 H (5-34) Units/L ALT 63 H (0-55) Units/L Alkaline Phosphatase 115 (38-126) Units/L Ammonia (18-72) mcmol/L Troponin I 0.02 (0-0.03) ng/mL C-Reactive Protein (Less than 5) mg/L Serum Total Protein 7.2 (6.0-8.3) g/dL Albumin 3.6 (3.5-5.0) g/dL Globulin 3.6 H (2.4-3.5) g/dL Albumin/Globulin Ratio 1.0 L (1.1-2.2) Lipase (8-78) Units/L TSH (0.350-4.840) mcIU/mL Urine Color (Yellow) Urine Clarity (Clear) Urine pH (5.0-8.0) pH Units Ur Specific [place] (1.010-1.025) Urine Protein (Neg-Trace) mg/dL Urine Glucose (UA) (Normal) mg/dL Urine Ketones (Negative) mg/dL Urine Blood (Negative) Urine Nitrite (Negative) Urine Bilirubin (Negative) Urine Urobilinogen (Normal) mg/dL Ur Leukocyte Esterase (Negative) Urine Microscopic RBC (0-3) per hpf Urine Microscopic WBC (0-3) per hpf Ur Squamous Epith Cells (None-Few) per lpf Urine Bacteria (None-Few) per hpf Hyaline Casts (None-Few) per lpf Ur Culture Indicated? (NO) Urine Opiates Screen (Cmsspx=003) ng/mL Ur Barbiturates Screen (Ycmuow=758) ng/mL Ur Phencyclidine Scrn (Cutoff=25) ng/mL Ur Amphetamines Screen (Hrkfpe=8627) ng/mL U Benzodiazepines Scrn (Mbczan=448) ng/mL Urine Cocaine Screen (Cutoff= 300) ng/mL U Marijuana (THC) Screen (Cutoff = 50) ng/mL 10/21/16 10/21/16 10/21/16 Range/Units 13:02 13:02 13:02 WBC (4.3-11.1) K/mcL RBC (3.82-4.97) M/mcL Hgb (11.5-15.4) g/dL Hct (35.3-44.9) % MCV (83.0-100.0) fL MCH (28.0-33.3) pg MCHC (31.6-35.5) g/dL RDW (11.5-14.5) % Plt Count (140-400) K/mcL MPV (9.4-12.4) fL Immature Gran % (0-4) % Seg Neutrophils % % Lymphocytes % % Monocytes % % Eosinophils % % Basophils % % Neutrophils # (1.6-8.9) K/mcL Lymphocytes # (0.6-4.6) K/mcL Monocytes # (0.0-1.3) K/mcL Eosinophils # (0.0-0.6) K/mcL Basophils # (0.0-0.2) K/mcL Immature Plt Fraction (1.1-6.1) % PT (9.4-12.1) Seconds INR Sodium (136-145) mEq/L Potassium (3.5-4.5) mEq/L Chloride (98-109) mEq/L Carbon Dioxide (19-29) mEq/L BUN (7-20) mg/dL Creatinine (0.57-1.11) mg/dL Est GFR ( Amer) (> 60) Est GFR (Non-Af Amer) (> 60) BUN/Creatinine Ratio (6-26) Glucose (70-99) mg/dL POC Glucose (58-89) Calculated Osmolality (280-300) Lactic Acid (0.5-2.2) mmol/L Calcium (8.6-10.8) mg/dL Total Bilirubin (0.2-1.2) mg/dL Direct Bilirubin (0.0-0.5) mg/dL Indirect Bilirubin (0.0-1.2) mg/dL AST (5-34) Units/L ALT (0-55) Units/L Alkaline Phosphatase (38-126) Units/L Ammonia 42 (18-72) mcmol/L Troponin I (0-0.03) ng/mL C-Reactive Protein 5 H (Less than 5) mg/L Serum Total Protein (6.0-8.3) g/dL Albumin (3.5-5.0) g/dL Globulin (2.4-3.5) g/dL Albumin/Globulin Ratio (1.1-2.2) Lipase 15 (8-78) Units/L TSH 1.286 (0.350-4.840) mcIU/mL Urine Color (Yellow) Urine Clarity (Clear) Urine pH (5.0-8.0) pH Units Ur Specific [place] (1.010-1.025) Urine Protein (Neg-Trace) mg/dL Urine Glucose (UA) (Normal) mg/dL Urine Ketones (Negative) mg/dL Urine Blood (Negative) Urine Nitrite (Negative) Urine Bilirubin (Negative) Urine Urobilinogen (Normal) mg/dL Ur Leukocyte Esterase (Negative) Urine Microscopic RBC (0-3) per hpf Urine Microscopic WBC (0-3) per hpf Ur Squamous Epith Cells (None-Few) per lpf Urine Bacteria (None-Few) per hpf Hyaline Casts (None-Few) per lpf Ur Culture Indicated? (NO) Urine Opiates Screen (Vtfowv=292) ng/mL Ur Barbiturates Screen ([place]=874) ng/mL Ur Phencyclidine Scrn (Cutoff=25) ng/mL Ur Amphetamines Screen (Oorhcq=6690) ng/mL U Benzodiazepines Scrn (Fzqhkd=359) ng/mL Urine Cocaine Screen (Cutoff= 300) ng/mL U Marijuana (THC) Screen (Cutoff = 50) ng/mL 10/21/16 10/21/16 10/21/16 Range/Units 13:30 13:31 16:47 WBC (4.3-11.1) K/mcL RBC (3.82-4.97) M/mcL Hgb (11.5-15.4) g/dL Hct (35.3-44.9) % MCV (83.0-100.0) fL MCH (28.0-33.3) pg MCHC (31.6-35.5) g/dL RDW (11.5-14.5) % Plt Count (140-400) K/mcL MPV (9.4-12.4) fL Immature Gran % (0-4) % Seg Neutrophils % % Lymphocytes % % Monocytes % % Eosinophils % % Basophils % % Neutrophils # (1.6-8.9) K/mcL Lymphocytes # (0.6-4.6) K/mcL Monocytes # (0.0-1.3) K/mcL Eosinophils # (0.0-0.6) K/mcL Basophils # (0.0-0.2) K/mcL Immature Plt Fraction (1.1-6.1) % PT (9.4-12.1) Seconds INR Sodium (136-145) mEq/L Potassium (3.5-4.5) mEq/L Chloride (98-109) mEq/L Carbon Dioxide (19-29) mEq/L BUN (7-20) mg/dL Creatinine (0.57-1.11) mg/dL Est GFR ( Amer) (> 60) Est GFR (Non-Af Amer) (> 60) BUN/Creatinine Ratio (6-26) Glucose (70-99) mg/dL POC Glucose 103 H (58-89) Calculated Osmolality (280-300) Lactic Acid (0.5-2.2) mmol/L Calcium (8.6-10.8) mg/dL Total Bilirubin (0.2-1.2) mg/dL Direct Bilirubin (0.0-0.5) mg/dL Indirect Bilirubin (0.0-1.2) mg/dL AST (5-34) Units/L ALT (0-55) Units/L Alkaline Phosphatase (38-126) Units/L Ammonia (18-72) mcmol/L Troponin I (0-0.03) ng/mL C-Reactive Protein (Less than 5) mg/L Serum Total Protein (6.0-8.3) g/dL Albumin (3.5-5.0) g/dL Globulin (2.4-3.5) g/dL Albumin/Globulin Ratio (1.1-2.2) Lipase (8-78) Units/L TSH (0.350-4.840) mcIU/mL Urine Color Dark Yellow (Yellow) Urine Clarity Cloudy A (Clear) Urine pH 5.5 (5.0-8.0) pH Units Ur Specific [place] > 1.030 H (1.010-1.025) Urine Protein 100 H (Neg-Trace) mg/dL Urine Glucose (UA) Normal (Normal) mg/dL Urine Ketones Trace H (Negative) mg/dL Urine Blood Negative (Negative) Urine Nitrite Negative (Negative) Urine Bilirubin Small H (Negative) Urine Urobilinogen Normal (Normal) mg/dL Ur Leukocyte Esterase Negative (Negative) Urine Microscopic RBC 3-5 H (0-3) per hpf Urine Microscopic WBC 3-5 H (0-3) per hpf Ur Squamous Epith Cells Many H (None-Few) per lpf Urine Bacteria None Seen (None-Few) per hpf Hyaline Casts None Seen (None-Few) per lpf Ur Culture Indicated? NO (NO) Urine Opiates Screen Positive H (Ivsoci=378) ng/mL Ur Barbiturates Screen Negative (Bnjpht=346) ng/mL Ur Phencyclidine Scrn Negative (Cutoff=25) ng/mL Ur Amphetamines Screen Negative (Jqrbgj=0037) ng/mL U Benzodiazepines Scrn Negative ([place]=815) ng/mL Urine Cocaine Screen Negative (Cutoff= 300) ng/mL U Marijuana (THC) Screen Negative (Cutoff = 50) ng/mL - Diagnostic Studies Chest x-ray Additional comments: Chest X-Ray 10/21/16 11:26 IMPRESSION: 1. No acute radiographic finding in the chest. D/ / Girma House MD / Girma House MD Interpreting Provider: Girma House MD CT scan - chest Additional comments: Chest CT 10/21/16 15:01 IMPRESSION: 1. No acute cardiopulmonary disease. 2. Hepatic steatosis. 3. Cholecystectomy. D/ / 10/21/2016 16:16:00 Gosia Aguilar MD / saritha Interpreting Provider: Gosia Aguilar MD CT scan - head Additional comments: Head CT 10/21/16 11:26 IMPRESSION: No acute intracranial abnormality ; negative CT head. D/ / Mello May MD / Mello May MD Interpreting Provider: Mello May MD
[2016-10-21] MEDS ORDERED: *HR* Dextrose 50 % in Water (Syg) 50 ML SYRINGE IVP PRN (17:39)
[2016-10-21] MEDS ORDERED: Dextrose Gel 15 GM PO PRN ×2 (17:39)
[2016-10-21] MEDS ORDERED: D5% in Water 1,000 ML IVC PRN (17:39)
[2016-10-21] MEDS: *HR* HYDROcodone/Acet 7.5/325 mg TABLET PO PRN (17:53)
[2016-10-21] MEDS: Gabapentin 300 MG CAPSULE PO SCH (20:46)
[2016-10-21] MEDS: Ondansetron 4 MG/2 ML VIAL IVP PRN (22:40)
[2016-10-22] MEDS: *HR* HYDROcodone/Acet 7.5/325 mg TABLET PO PRN ×4 (01:30→23:52)
[2016-10-22 05:17] LABS: Basophils # 0.1 K/mcL (0.0-0.2); Basophils % 0.7 %; Eosinophils # 0.4 K/mcL (0.0-0.6); Eosinophils % 4.4 %; Hematocrit 36.6 % (35.3-44.9); Hemoglobin 12.4 g/dL (11.5-15.4); Immature Granulocytes % 0.2 % (0-4); Lymphocytes # 3.1 K/mcL (0.6-4.6); Lymphocytes % 35.8 %; Mean Corpuscular HGB Conc 33.9 g/dL (31.6-35.5); Mean Corpuscular Hemoglobin 30.9 pg (28.0-33.3); Mean Corpuscular Volume 91.3 fL (83.0-100.0); Mean Platelet Volume 9.6 fL (9.4-12.4); Monocytes # 0.6 K/mcL (0.0-1.3); Monocytes % 6.7 %; Neutrophils # 4.6 K/mcL (1.6-8.9); Platelet Count 263 K/mcL (140-400); Red Blood Count 4.01 M/mcL (3.82-4.97); Red Cell Distribution Width 13.1 % (11.5-14.5); Segmented Neutrophils % 52.2 %
[2016-10-22 05:30] LABS: BUN/Creatinine Ratio 12 (6-26); Blood Urea Nitrogen 11 mg/dL (7-20); Calcium 9.3 mg/dL (8.6-10.8); Carbon Dioxide 27 mEq/L (19-29); Chloride 101 mEq/L (98-109); Glucose 126 mg/dL (70-99); Osmolality,Calculated 287 (280-300); Potassium 3.5 mEq/L (3.5-4.5); Sodium 138 mEq/L (136-145); eGFR For African Americans > 60 (> 60); eGFR For Non-African Americans > 60 (> 60)
[2016-10-22] MEDS: Ondansetron 4 MG/2 ML VIAL IVP PRN ×3 (08:00→23:52)
--- NOTE | 2016-10-22 08:34 | Internal Med Progress Note ---
<Jozef Ortega - Last Filed: 10/22/16 12:46> Date of Encounter: 10/22/16 Time of Encounter: 08:33 - Assessment and plan (1) Chest pain Current Visit: Yes Status: Acute Assessment and plan: Patient reports constant chest pain for the last week radiating to left arm and described and pressure and burning. She points to epigastric area when describing pain. Troponin normal at 0.02 x3. EKG without ischemic changes. Stress test 03/2016 showed no evidence of ischemia. Echo 01/2016 showed LVEF of 65% and moderate diastolic dysfunction. - Significant risk factors include morbid obesity, type 2 diabetes, hypertension , hyperlipidemia, former smoker with 35 pack year history. - Chest pain symptoms appear to be atypical they are left sided, radiating to her left arm but not to her jaw. No exacerbating factors and has not used any relieving factors. No associated cardiac markers. Plan: - Continue maximizing ACS medications : Aspirin, beta tootie, ARB, atorvastatin. - Patient continues to have episodes of intermittent chest pain, Echocardiogram ordered - Continue cardiac monitoring - If chest discomfort continues despite no abnormal EKG findings, negative troponins and Maximized medical therapy cardiology may be consulted. Qualifiers: Qualified Code(s): R07.9 - Chest pain, unspecified (2) Hallucinosis Current Visit: Yes Status: Acute Assessment and plan: Patient states that she had episodes of hallucinations witnessed by her at home and she fell and hit her head the fall happening after the hallucinations. She denies any hallucinations currently or since admission. Current medications that may be contributing include amitriptyline, Wellbutrin, Cymbalta, Compazine, Ambien. Plan: - We will change patient's Phenergan to omeprazole as Phenergan has a risk of hallucinations in the elderly. - Continue to monitor patient's and review medications. (3) HLD (hyperlipidemia) Current Visit: Yes Status: Acute Assessment and plan: Known history of hyperlipidemia, patient's currently on atorvastatin. Qualifiers: Qualified Code(s): E78.5 - Hyperlipidemia, unspecified (4) HTN (hypertension) Current Visit: Yes Status: Acute Assessment and plan: Patient is a history of hypertension, blood pressures were elevated upon review. - Increased ARB dose. Plan: - Continue with current blood pressure control. Qualifiers: Hypertension type: essential hypertension Qualified Code(s): I10 - Essential (primary) hypertension (5) Type 2 diabetes mellitus Current Visit: Yes Status: Chronic Assessment and plan: Known history of type 2 diabetes, current glucose is stable at 126 Plan: - Continue with inpatient insulin scale. - Before meals at bedtime glucose checks - Diabetic/cardiac diet. 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 Qualifiers: Associated angina: with unspecified angina Qualified Code(s): I25.119 - Atherosclerotic heart disease of [place] coronary artery with unspecified angina pectoris (7) GERD (gastroesophageal reflux disease) Current Visit: No Status: Chronic Assessment and plan: Document history of GERD. Pain was described as epigastric. Current symptoms may be GI related Plan: -Zofran 4 milligrams when necessary - Centigray and total 0.5 mg by mouth every 6 hours Qualifiers: Esophagitis presence: esophagitis presence not specified Qualified Code(s) : K21.9 - Gastro-esophageal reflux disease without esophagitis - Subjective Interval history: Ms. Andrade 50-year-old female seen about a patient bedside smoking. She still complains of some left-sided substernal chest pain that radiates to her left upper extremity and associated with some nausea. She states that the chest pain has been present for roughly 2 weeks. She has seen cardiology in the past and had cardiac workup including stress test, echocardiograms and EKGs without any significant findings. She currently has some nausea but is still trying to eat. She denies any headaches or lightheadedness, palpitations shortness of breath, abdominal pains but does have nausea. She said she has had episodes of vomiting twice in the last 2 days. - Constitutional Vitals: Temp Pulse Resp BP Pulse Ox 97.6 F 82 16 163/73 96 10/22/16 07:13 10/22/16 07:13 10/22/16 07:13 10/22/16 07:13 10/22/16 07:13 General appearance: Present: A&O X 3, morbidly obese, pleasant, no acute distress Exam: General: Patient alert, awake, oriented 3, interactive, in no acute distress HEENT: Normocephalic, atraumatic, pupils equal reactive to light, nasal cavity patent and open septum median position, oral mucosa moist, uvula midline, neck supple trachea midline no palpable lymphadenopathy, no thyromegaly. Chest: Symmetric bilateral correlating with respiratory effort, effort nonlabored. Cardiac: Regular rate and rhythm, positive S1, S2, no bruits appreciated bilateral carotids, Radial pulses 2+ bilateral, posterior tibial and dorsal pedal pulses 2+ bilateral. Respiratory: Clear to auscultation all lung trejo Abdomen: Soft, nontender, positive bowel sounds, no palpable masses appreciated on examination Extremities: Symmetric bilateral, no erythema or edema, patient moving all 4 extremities spontaneously. Neurologic: No focal deficits appreciated on examination. Face symmetric, muscle strength symmetric bilateral upper and lower extremities. Internal Medicine: Result - Labs CBC & Chem 7: 10/22/16 05:00 10/22/16 05:00 Labs: Short CBC 10/22/16 Range/Units 05:00 WBC 8.8 (4.3-11.1) K/mcL Hgb 12.4 (11.5-15.4) g/dL Hct 36.6 (35.3-44.9) % Plt Count 263 (140-400) K/mcL Neutrophils # 4.6 (1.6-8.9) K/mcL BMP 10/22/16 05:00 Sodium 138 Potassium 3.5 Chloride 101 Carbon Dioxide 27 BUN 11 Creatinine 0.94 Glucose 126 H Calcium 9.3 Cardiac Enzymes 10/21/16 10/22/16 Range/Units 19:05 01:55 Troponin I 0.02 0.02 (0-0.03) ng/mL - ABG Interpretation ABG results: PT/INR, D-dimer PT 12.8 Seconds (9.4-12.1) H 10/21/16 13:02 Consult Discharge Plan - Plan Referrals: Mona Payton MD [Primary Care Provider] - <Elijah Kay - Last Filed: 10/22/16 15:06> Date of Encounter: 10/22/16 - Constitutional Vitals: Temp Pulse Resp BP Pulse Ox 97.6 F 78 96 138/53 96 10/22/16 11:40 10/22/16 11:40 10/22/16 11:40 10/22/16 11:40 10/22/16 07:13 Internal Medicine: Result - Labs CBC & Chem 7: 10/22/16 05:00 10/22/16 05:00 Labs: Short CBC 10/22/16 Range/Units 05:00 WBC 8.8 (4.3-11.1) K/mcL Hgb 12.4 (11.5-15.4) g/dL Hct 36.6 (35.3-44.9) % Plt Count 263 (140-400) K/mcL Neutrophils # 4.6 (1.6-8.9) K/mcL BMP 10/22/16 05:00 Sodium 138 Potassium 3.5 Chloride 101 Carbon Dioxide 27 BUN 11 Creatinine 0.94 Glucose 126 H Calcium 9.3 Cardiac Enzymes 10/21/16 10/22/16 Range/Units 19:05 01:55 Troponin I 0.02 0.02 (0-0.03) ng/mL - ABG Interpretation ABG results: PT/INR, D-dimer PT 12.8 Seconds (9.4-12.1) H 10/21/16 13:02 - Attending Attestation I saw and examined pt. I have discussed with Resident Dr Ortega regarding pt's management plan. I agree with the documentation. Pt present with chest pain, pressure like, intermittent, with Nausea and SOB. However pt has recent negative stress test in Mar 22 (7 month ago). Pt said she has hx of pericaditis, will check echo. Cont asa/BB/Statin/ARB, will add imdur 30mg po daily.
[2016-10-22] MEDS: Magnesium Oxide 400 MG TABLET PO SCH (09:18)
[2016-10-22] MEDS: Lactobacillus 1 EACH CAP.SPRINK PO SCH (09:18)
[2016-10-22] MEDS: Aspirin Enteric Coated 81 MG Tablet PO SCH (09:18)
[2016-10-22] MEDS: Furosemide 20 MG TABLET PO SCH (09:18)
[2016-10-22] MEDS: Gabapentin 300 MG CAPSULE PO SCH ×3 (09:18→20:30)
[2016-10-22] MEDS: BuPROPion XL (24 HR) 150 MG TABLET PO SCH (09:18)
[2016-10-22] MEDS: Isosorbide MONOnitrate (24 HR) 30 MG TAB.ER.24H PO SCH (15:49)
[2016-10-23 05:40] LABS: Basophils # 0.1 K/mcL (0.0-0.2); Basophils % 0.5 %; Eosinophils # 0.4 K/mcL (0.0-0.6); Eosinophils % 4.8 %; Hematocrit 34.9 % (35.3-44.9); Hemoglobin 11.9 g/dL (11.5-15.4); Immature Granulocytes % 0.1 % (0-4); Lymphocytes # 2.7 K/mcL (0.6-4.6); Lymphocytes % 29.3 %; Mean Corpuscular HGB Conc 34.1 g/dL (31.6-35.5); Mean Corpuscular Hemoglobin 31.3 pg (28.0-33.3); Mean Corpuscular Volume 91.8 fL (83.0-100.0); Mean Platelet Volume 10.1 fL (9.4-12.4); Monocytes # 0.6 K/mcL (0.0-1.3); Monocytes % 6.1 %; Neutrophils # 5.4 K/mcL (1.6-8.9); Platelet Count 244 K/mcL (140-400); Red Cell Distribution Width 13.1 % (11.5-14.5); Segmented Neutrophils % 59.2 %
[2016-10-23 05:55] LABS: Alanine Aminotransferase 64 Units/L (0-55); Albumin 3.5 g/dL (3.5-5.0); Albumin/Globulin Ratio 0.9 (1.1-2.2); Alkaline Phosphatase 120 Units/L (38-126); Aspartate Amino Transferase 71 Units/L (5-34); BUN/Creatinine Ratio 10 (6-26); Bilirubin,Total 0.5 mg/dL (0.2-1.2); Blood Urea Nitrogen 9 mg/dL (7-20); Calcium 9.1 mg/dL (8.6-10.8); Carbon Dioxide 23 mEq/L (19-29); Chloride 102 mEq/L (98-109); Globulin 3.9 g/dL (2.4-3.5); Glucose 193 mg/dL (70-99); Osmolality,Calculated 286 (280-300); Sodium 136 mEq/L (136-145); Total Protein 7.4 g/dL (6.0-8.3); eGFR For African Americans > 60 (> 60); eGFR For Non-African Americans > 60 (> 60)
[2016-10-23] MEDS: Lactobacillus 1 EACH CAP.SPRINK PO SCH (08:40)
[2016-10-23] MEDS: Magnesium Oxide 400 MG TABLET PO SCH (08:41)
[2016-10-23] MEDS: Gabapentin 300 MG CAPSULE PO SCH (08:41)
[2016-10-23] MEDS: Aspirin Enteric Coated 81 MG Tablet PO SCH (08:41)
[2016-10-23] MEDS: Furosemide 20 MG TABLET PO SCH (08:41)
[2016-10-23] MEDS: BuPROPion XL (24 HR) 150 MG TABLET PO SCH (08:41)
[2016-10-23] MEDS: Isosorbide MONOnitrate (24 HR) 30 MG TAB.ER.24H PO SCH (08:41)
[2016-10-23] MEDS: Ondansetron 4 MG/2 ML VIAL IVP PRN (08:43)
[2016-10-23] MEDS: *HR* HYDROcodone/Acet 7.5/325 mg TABLET PO PRN (08:43)
--- NOTE | 2016-10-23 09:12 | Cardiology Consult Note ---
<Kenyetta Ledesma - Last Filed: 10/23/16 09:16> Date of Encounter: 10/23/16 Time of Encounter: 08:30 Assessment and Plan (1) Chest pain Current Visit: Yes Status: Acute Atypical chest pain symptoms; suspect pleuritic in etiology. Also presented with hallucinations. Troponin negative x3, no ischemic ECG changes. TTE demonstrates preserved LVEF with normal wall motion. Recent negative non-exercise nuclear stress test. Recommend medical management as symptoms are likely not cardiac in etiology. Agree with addition of long-acting nitrate; continue asa, statin, and betablocker. Risk factor modification emphasized including improved glycemic control, weight loss, and daily exercise. Follow-up in the outpatient setting with Dr. Cormier, will arrange for appt in 3 -4 weeks. No further inpatient testing recommended from Cardiology standpoint; anticipate sign-off once seen by Dr. Alfaro. Qualifiers: Chest pain type: chest pain on breathing Qualified Code(s): R07.1 - Chest pain on breathing Discussion w patient/family: The assessment and plan as outlined above was discussed with the patient and/or family members who expressed understanding and agreement. All questions were answered. Thank you for involving us in the care of your patient. Please call with any questions. The patient will be discussed and reviewed with Dr. Alfaro; changes to be made accordingly. Anticipate Cardiology sign-off, will arrange for outpt follow-up with Dr. Cormier. History of Present Illness Consult date: 10/23/16 Requesting physician: Elijah Kay Consult reason: Chest pain Chief complaint: Hallucinations, chest pressure History of present illness: Ms. Andrade is a 50 year old female with PMH significant for DMII, HTN, migraines , SHAY, hypothyroidism and diastolic CHF who presented to the ED with 1+ day history of constant left-sided chest pressure with associated left arm tingling. Also reports 2 week migraine prior to admission. She notes hallucinations and constant chest pressure prompted ED evaluation; hallucinations felt secondary to over medication per pt/ report. Chest pressure worsens with cough. Upon arrival to ED, troponin negative without ischemic ECG changes. TTE demonstrated preserved LVEF, 60-65% with normal wall motion. Cardiology consulted today for chest pain. Previous testing: Pharmacological nuclear stress test 03/15/2016: Negative for ischemia or prior infarct. Echocardiogram 01/17/2016: EF 65%. Moderate diastolic function. No significant valvular dysfunction. No pulmonary hypertension. Carotid duplex 01/17/2016: Left proximal ICA moderate stenosis. Past Med Surg Social Fam HX - Past Medical History Attestation: Yes The following information was validated with the patient. Source: patient, old records reviewed, obtained from family Medical history: arthritis, asthma, CHF (chronic, diastolic), GI bleed, hyperlipidemia, hypertension, migraine, TIA Psychiatric history: anxiety, depression - Past Surgical History Surgical History: appendectomy, cholecystectomy, orthopedic, other, thyroidectomy - Social History Smoking Status: Former smoker (35 pack year history) Smokeless Tobacco Status: No (Stopped smoking 2 years ago) Alcohol use: none Drug use: none - Family History Father Hx Family Cardiac Disorders: Yes (Stroke, DE, HTN, HLD) Hx Family Respiratory Disorders: Yes (COPD) Hx Family Cancer: No Hx Family GI Disorders: No Hx Family Endocrine Disorder: Yes (DM) Hx Family Neuromuscular Disorders: Yes (Neuropathy) Hx Family Neurologic Disorders: Yes (Alzheimers) Hx Family HEENT Disorders: No Hx Family Autoimmune Disorders: No Mother Hx Family Neuromuscular Disorders: Yes (parkinsons) Medications and Allergies Duloxetine HCl [Cymbalta] 60 mg PO DAILY 05/23/15 [History] Lactobacillus Acidophilus [Acidophilus] 1 tab PO DAILY 05/23/15 [History] Magnesium Oxide [Magnesium] 400 mg PO DAILY 05/23/15 [History] Promethazine [Phenergan] 25 mg PO PRN PRN 05/23/15 [History] Zolpidem [Ambien] 10 mg PO HS 05/23/15 [History] Gabapentin [Neurontin] 600 mg PO TID 01/17/16 [History] Multivitamin [Multivitamins] 1 tab PO DAILY 01/17/16 [History] Aspirin [Lo-Dose Aspirin EC] 81 mg PO DAILY 02/14/16 [History] Atorvastatin [Lipitor] 80 mg PO DAILY 02/14/16 [History] Furosemide [Lasix] 20 mg PO DAILY 02/14/16 [History] Ondansetron HCl [Zofran] 4 mg PO Q6HR PRN #10 tablet 02/14/16 [Rx] Amitriptyline [Elavil] 25 mg PO DAILY 07/19/16 [History] Carvedilol [Coreg] 6.25 mg PO DAILY 07/19/16 [History] Losartan [Cozaar] 25 mg PO DAILY 07/19/16 [History] HYDROcodone/Acet 7.5/325 mg [[place] 7.5-325 mg] 1 tab PO TID PRN #30 tablet 07/21 [Rx] Albuterol Sulfate [Ventolin Hfa] 2 puff IH Q4H PRN 10/21/16 [History] BuPROPion XL (24 HR) [Wellbutrin XL] 150 mg PO DAILY 10/21/16 [History] Isomethepten/Caf/Acetaminophen [Prodrin Cap[place]] 1 each PO Q8H PRN 10/21/16 [ History] Liraglutide [Victoza 2-Mateusz] 1.2 mg SQ DAILY 10/21/16 [History] Omeprazole [PriLOSEC] 20 mg PO DAILY 10/21/16 [History] Prochlorperazine Maleate [Compazine] 10 mg PO TID PRN 10/21/16 [History] Subcutaneous Insulin Pump [T:Slim] 90 - 120 unit MC DAILY 10/21/16 [History] Allergies pregabalin [From Lyrica] Allergy (Verified 10/18/16 23:41) Swelling of Lip/Tongue/Throat [place] Allergy (Verified 10/18/16 23:41) Hives ESME Inhibitors Adverse Reaction (Verified 10/18/16 23:41) Cough codeine Adverse Reaction (Verified 10/18/16 23:41) Itching dihydroergotamine Adverse Reaction (Verified 10/18/16 23:41) Hallucinating prochlorperazine [From Compazine] Adverse Reaction (Verified 10/21/16 18:09) Hallucinating [id number] Antimigraine Agents Adverse Reaction (Verified 10/18/16 23:41) Cough asolicitic acid Allergy (Uncoded 10/18/16 23:41) Rash All Systems Review: A 10-system review of systems was performed and is negative for pertinent findings except as documented above in the HPI. - Cardiovascular Cardiovascular: as per HPI Physical Examination Vital Signs, Last 4 Hours Temp Pulse Resp BP Pulse Ox 10/23/16 07:27 97.6 F 76 16 124/59 98 General: Conversant, No Apparent Distress, Other (obese) Neck: No JVD Cardiac: Reg Rate and Rhythm, Normal S1 and S2 Lungs: Normal Breath Sounds Neuro: Alert and responsive Abdomen: Soft Skin: No rashes noted on visualized skin Musculoskeletal: No Chest Wall Tenderness Extremities: Other (non-pitting BLE edema. ) Results 10/23/16 05:16 10/23/16 05:16 Lab Results 10/23/16 10/23/16 05:16 05:16 WBC 9.2 Hgb 11.9 Hct 34.9 L Plt Count 244 Sodium 136 Potassium 4.0 Chloride 102 Carbon Dioxide 23 BUN 9 Creatinine 0.94 Glucose 193 H Calcium 9.1 Total Bilirubin 0.5 AST 71 H ALT 64 H Alkaline Phosphatase 120 ITS Impressions Chest X-Ray 10/21/16 11:26 IMPRESSION: 1. No acute radiographic finding in the chest. D/ / Girma House MD / Girma House MD Interpreting Provider: Girma House MD Head CT 10/21/16 11:26 IMPRESSION: No acute intracranial abnormality ; negative CT head. D/ / Mello May MD / Mello May MD Interpreting Provider: Mello May MD Chest CT 10/21/16 15:01 IMPRESSION: 1. No acute cardiopulmonary disease. 2. Hepatic steatosis. 3. Cholecystectomy. D/ / 10/21/2016 16:16:00 Gosia Aguilar MD / saritha Interpreting Provider: Gosia Aguilar MD Active Medications Acetaminophen/Hydrocodone Bitart ([place] 7.5-325 Mg) 1 tab PO TID PRN PRN Reason: Moderate Pain Stop: 04/22/17 16:58 Last Admin: 10/23/16 08:43 Dose: 1 tab Albuterol Sulfate (Albuterol Inhaler) 2 puff IH Q4H PRN PRN Reason: Shortness Of Breath Stop: 04/22/17 16:58 Amitriptyline HCl (Elavil) 25 mg PO DAILY [facility] Stop: 04/23/17 09:01 Last Admin: 10/23/16 08:41 Dose: 25 mg Aspirin (Aspirin Ec) 81 mg PO DAILY [facility] Stop: 04/23/17 09:01 Last Admin: 10/23/16 08:41 Dose: 81 mg Atorvastatin Calcium (Lipitor) 80 mg PO DAILY [facility] Stop: 04/23/17 09:01 Last Admin: 10/23/16 08:40 Dose: 80 mg Bupropion HCl (Wellbutrin Xl) 150 mg PO DAILY [facility] Stop: 04/23/17 09:01 Last Admin: 10/23/16 08:41 Dose: 150 mg Carvedilol (Coreg) 6.25 mg PO DAILY [facility] PRN Reason: Protocol Stop: 04/23/17 09:01 Last Admin: 10/23/16 08:41 Dose: 6.25 mg Dextrose/Water (Dextrose 50% (Syg)) 25 ml IVP AD PRN PRN Reason: Hypoglycemia Stop: 04/22/17 17:40 Docusate Sodium (Colace) 100 mg PO BID PRN PRN Reason: Constipation Stop: 04/22/17 16:53 Duloxetine HCl (Cymbalta) 60 mg PO DAILY [facility] Stop: 04/23/17 09:01 Last Admin: 10/23/16 08:42 Dose: 60 mg Furosemide (Lasix) 20 mg PO DAILY [facility] Stop: 04/23/17 09:01 Last Admin: 10/23/16 08:41 Dose: 20 mg Gabapentin (Neurontin) 600 mg PO TID [facility] Stop: 04/22/17 21:01 Last Admin: 10/23/16 08:41 Dose: 600 mg Isosorbide Mononitrate (Imdur) 30 mg PO DAILY [facility] Stop: 04/23/17 15:16 Last Admin: 10/23/16 08:41 Dose: 30 mg Lactobacillus Acidophilus/Rhamnosus (Culturelle) 1 each PO DAILY [facility] Stop: 04/23/17 09:01 Last Admin: 10/23/16 08:40 Dose: 1 each Losartan Potassium (Cozaar) 50 mg PO DAILY [facility] PRN Reason: Protocol Stop: 04/23/17 09:01 Last Admin: 10/23/16 08:41 Dose: 50 mg Magnesium Oxide (Mag-Ox) 400 mg PO DAILY [facility] PRN Reason: Protocol Stop: 04/23/17 09:01 Last Admin: 10/23/16 08:41 Dose: 400 mg Naloxone HCl (Narcan) 0.4 mg IVP Q2MIN PRN PRN Reason: Opioid Reversal Stop: 04/22/17 16:53 Omeprazole (Prilosec) 20 mg PO DAILY@0730 [facility] PRN Reason: Protocol Stop: 04/23/17 07:31 Last Admin: 10/23/16 08:41 Dose: 20 mg Ondansetron HCl (Zofran) 4 mg IVP Q8HR PRN PRN Reason: Nausea And Vomiting Stop: 04/22/17 16:53 Last Admin: 10/23/16 08:43 Dose: 4 mg Pharmacy Profile Note (Patient Taking Own Medication) 0 each MC DAILY [facility] Stop: 04/22/17 17:01 - Imaging and Cardiology Chest Xray: report reviewed Stress Test: report reviewed Echo: report reviewed Other Results: HR 70's per bedside montior. - EKG Interpretation EKG results cardiology: personally reviewed Consult Discharge Plan - Plan Additional Instructions: 1. Follow-up with your primary care provider in the next 3-5 days 2. Take all prescriptions as prescribed, any concerns or questions contact her primary care provider. 3. Return to the emergency department if: Recommendations per cardiology: Risk factor modification emphasized including improved glycemic control, weight loss, and daily exercise. Follow-up in the outpatient setting with Dr. Cormier, will arrange for appt in 3 -4 weeks. Referrals: Mona Payton MD [Primary Care Provider] - <Pavithra Alfaro - Last Filed: 10/23/16 11:26> Date of Encounter: 10/23/16 Assessment and Plan Discussion w patient/family: The assessment and plan as outlined above was discussed with the patient and/or family members who expressed understanding and agreement. All questions were answered. Thank you for involving us in the care of your patient. Please call with any questions. History of Present Illness History of present illness: Ms. Andrade is a 50 year old female All Systems Review: A 10-system review of systems was performed and is negative for pertinent findings except as documented above in the HPI. Physical Examination Vital Signs, Last 4 Hours Temp Pulse Resp BP Pulse Ox 10/23/16 07:27 97.6 F 76 16 124/59 98 Results 10/23/16 05:16 10/23/16 05:16 Lab Results 10/23/16 10/23/16 05:16 05:16 WBC 9.2 Hgb 11.9 Hct 34.9 L Plt Count 244 Sodium 136 Potassium 4.0 Chloride 102 Carbon Dioxide 23 BUN 9 Creatinine 0.94 Glucose 193 H Calcium 9.1 Total Bilirubin 0.5 AST 71 H ALT 64 H Alkaline Phosphatase 120 - Attending Attestation I examined this patient and my medical decision-making was reviewed with the REHABILITATION COUNSELOR/PA/Advanced Practice Nurse/Resident Physician. I agree with the documented findings, disposition and treatment plan. Ms. Andrade presents with atypical chest pain, negative troponins, no ischemic ECG findings and preserved LV function. Symptoms do not represent an acute coronary syndrome. Recommend attempts at risk factor modification. Will sign off. Please call with questions.
--- NOTE | 2016-10-23 09:55 | Discharge Summary ---
<Jozef Ortega - Last Filed: 10/23/16 13:43> Date of Encounter: 10/23/16 Time of Encounter: 09:53 - Discharge Diagnosis (1) Chest pain Priority: Primary Status: Acute Qualifiers: Chest pain type: chest pain on breathing Qualified Code(s): R07.1 - Chest pain on breathing (2) Hallucinosis Priority: Secondary Status: Acute (3) HLD (hyperlipidemia) Priority: Primary Status: Acute Qualifiers: Qualified Code(s): E78.5 - Hyperlipidemia, unspecified (4) HTN (hypertension) Priority: Primary Status: Acute Qualifiers: Hypertension type: essential hypertension Qualified Code(s): I10 - Essential (primary) hypertension (5) Type 2 diabetes mellitus Priority: Secondary Status: Chronic Qualifiers: Diabetes mellitus complication status: with unspecified complications 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 Qualifiers: Associated angina: with unspecified angina Qualified Code(s): I25.119 - Atherosclerotic heart disease of [place] coronary artery with unspecified angina pectoris (7) GERD (gastroesophageal reflux disease) Priority: Secondary Status: Chronic Qualifiers: Esophagitis presence: esophagitis presence not specified Qualified Code(s) : K21.9 - Gastro-esophageal reflux disease without esophagitis - Discharge Medications Prescriptions: Isosorbide MONOnitrate (24 HR) [Imdur] 30 mg PO DAILY #30 tab.er.24h Losartan [Cozaar] 50 mg PO DAILY #60 tablet Home Medications: Duloxetine HCl [Cymbalta] 60 mg PO DAILY 05/23/15 [History] Lactobacillus Acidophilus [Acidophilus] 1 tab PO DAILY 05/23/15 [History] Magnesium Oxide [Magnesium] 400 mg PO DAILY 05/23/15 [History] Promethazine [Phenergan] 25 mg PO PRN PRN 05/23/15 [History] Zolpidem [Ambien] 10 mg PO HS 05/23/15 [History] Gabapentin [Neurontin] 600 mg PO TID 01/17/16 [History] Multivitamin [Multivitamins] 1 tab PO DAILY 01/17/16 [History] Aspirin [Lo-Dose Aspirin EC] 81 mg PO DAILY 02/14/16 [History] Atorvastatin [Lipitor] 80 mg PO DAILY 02/14/16 [History] Furosemide [Lasix] 20 mg PO DAILY 02/14/16 [History] Ondansetron HCl [Zofran] 4 mg PO Q6HR PRN #10 tablet 02/14/16 [Rx] Amitriptyline [Elavil] 25 mg PO DAILY 07/19/16 [History] Carvedilol [Coreg] 6.25 mg PO DAILY 07/19/16 [History] HYDROcodone/Acet 7.5/325 mg [[place] 7.5-325 mg] 1 tab PO TID PRN #30 tablet 07/21 [Rx] Albuterol Sulfate [Ventolin Hfa] 2 puff IH Q4H PRN 10/21/16 [History] BuPROPion XL (24 HR) [Wellbutrin Xl] 150 mg PO DAILY 10/21/16 [History] Isomethepten/Caf/Acetaminophen [Prodrin Caplet] 1 each PO Q8H PRN 10/21/16 [ History] Liraglutide [Victoza 2-Mateusz] 1.2 mg SQ DAILY 10/21/16 [History] Omeprazole [PriLOSEC] 20 mg PO DAILY 10/21/16 [History] Prochlorperazine Maleate [Compazine] 10 mg PO TID PRN 10/21/16 [History] Subcutaneous Insulin Pump [T:Slim] 90 - 120 unit MC DAILY 10/21/16 [History] Isosorbide MONOnitrate (24 HR) [Imdur] 30 mg PO DAILY #30 tab.er.24h 10/23/16 [ Rx] Losartan [Cozaar] 50 mg PO DAILY #60 tablet 10/23/16 [Rx] Allergies/Adverse Reactions: Allergies pregabalin [From Lyrica] Allergy (Verified 10/18/16 23:41) Swelling of Lip/Tongue/Throat [place] Allergy (Verified 10/18/16 23:41) Hives ESME Inhibitors Adverse Reaction (Verified 10/18/16 23:41) Cough codeine Adverse Reaction (Verified 10/18/16 23:41) Itching dihydroergotamine Adverse Reaction (Verified 10/18/16 23:41) Hallucinating prochlorperazine [From Compazine] Adverse Reaction (Verified 10/21/16 18:09) Hallucinating [id number] Antimigraine Agents Adverse Reaction (Verified 10/18/16 23:41) Cough asolicitic acid Allergy (Uncoded 10/18/16 23:41) Rash Procedures/tests Complete & Pending: Procedures Performed prior 72 hours Category Date Time Status EV echocardiogram Routine Y 10/22/16 08:55 Completed Date of admission: 10/21/16 15:27 Primary care physician: Mona Payton MD Consults: 10/23/16 08:02 Consult to Cardiology [CONS] Routine Comment: Consulting Provider: Cardiology [place] Reason for Consult: Chest pain Call Completed: No Discharging clinician: Jozef Ortega Anticipated date of discharge: 10/23/16 - Patient Status Disposition: Home, Self-Care Condition: Good Functional capacity at discharge: independent ambulation Overall status at discharge: patient is back to baseline - Discharge Instructions Instructions: Chest Pain (DC) Follow Up With: Mona Payton MD [Primary Care Provider] - Additional Instructions: 1. Follow-up with your primary care provider in the next 3-5 days 2. Take all prescriptions as prescribed, any concerns or questions contact her primary care provider. 3. Return to the emergency department if: Chest pain, chest pain with associated left arm radiation or jaw pain, nausea vomiting or any other concerning medical symptoms or signs. Recommendations per cardiology: Risk factor modification emphasized including improved glycemic control, weight loss, and daily exercise. Follow-up in the outpatient setting with Dr. Cormier, will arrange for appt in 3 -4 weeks. - Diet and Activity Activity: increase activity as tolerated Diet: diabetic diet, low fat, low cholesterol, low salt diet Interval History: Ms. Richter 50-year-old female with significant past mental history of morbid obesity, hypertension, hyperlipidemia, type 2 diabetes, arthritis, asthma, Diastolic HF, migraine, TIA, anxiety, depression was admitted for substernal chest pain with radiations on her left arm. She underwent extensive cardiac workup including troponins, EKG and admitted to the general medical floor for continued monitoring. She has a past medical history of previous chest discomfort and recent nuclear medicine stress test that has no significant findings. During her inpatient stay she was seen by cardiology and was on cardiac monitoring. She underwent echocardiogram that demonstrates an LVEF of 70% and mild diastolic dysfunction but no acute changes since previous. Her troponins remained negative for chest discomfort remained constant. Her symptoms may be related to GERD. Upon admission she also complained of having episode of hallucinations but did not have any altered mental status at the time of the admission or throughout her inpatient stay. After further evaluation from cardiology during inpatient stay she was deemed stable for discharge home with a new prescription for Imdur and increased on her losartan for blood pressure control. She will follow up with cardiology in the outpatient setting. Hospital course: Ms. Andrade is a 50 year old female - Time Spent with Patient Total time spent providing and/or coordinating discharge services: - Constitutional Vitals: Temp Pulse Resp BP Pulse Ox 97.6 F 76 16 124/59 98 10/23/16 07:27 10/23/16 07:27 10/23/16 07:27 10/23/16 07:27 10/23/16 07:27 General appearance: Present: A&O X 3, morbidly obese, pleasant, no acute distress Exam: General: Patient alert, awake, oriented 3, interactive, in no acute distress HEENT: Normocephalic, atraumatic, pupils equal reactive to light, nasal cavity patent and open septum median position, oral mucosa moist, uvula midline, neck supple trachea midline no palpable lymphadenopathy, no thyromegaly. Chest: Symmetric bilateral correlating with respiratory effort, effort nonlabored. Cardiac: Regular rate and rhythm, positive S1, S2, no bruits appreciated bilateral carotids, Radial pulses 2+ bilateral, posterior tibial and dorsal pedal pulses 2+ bilateral. Respiratory: Clear to auscultation all lung trejo Abdomen: Soft, nontender, positive bowel sounds, no palpable masses appreciated on examination Extremities: Symmetric bilateral, no erythema or edema, patient moving all 4 extremities spontaneously. Neurologic: No focal deficits appreciated on examination. Face symmetric, muscle strength symmetric bilateral upper and lower extremities. <Elijah Kay - Last Filed: 10/23/16 14:09> Date of Encounter: 10/23/16 Procedures/tests Complete & Pending: Procedures Performed prior 72 hours Category Date Time Status EV echocardiogram Routine Y 10/22/16 08:55 Completed Date of admission: 10/21/16 15:27 Primary care physician: Mona Payton MD Consults: 10/23/16 08:02 Consult to Cardiology [CONS] Routine Comment: Consulting Provider: Cardiology Anushka Reason for Consult: Chest pain Call Completed: No Hospital course: Ms. Andrade is a 50 year old female - Time Spent with Patient Total time spent providing and/or coordinating discharge services: - Constitutional Vitals: Temp Pulse Resp BP Pulse Ox 97.9 F 87 16 125/67 95 10/23/16 11:39 10/23/16 11:39 10/23/16 11:39 10/23/16 11:39 10/23/16 11:39 - Attending Attestation I saw and examined pt. I have discussed with Resident Dr Ortega regarding pt's management plan. I agree with the documentation. Pt still has mild chest pressure. Cardio consult appreciated. Medication adjusted. Pt will d/c home and f/u with cardiology as outpatient.
[2016-10-23 15:35] VITALS: BP 133/58
--- NOTE | 2016-10-23 16:40 | Electrocardiograph Report ---
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
== END 2016-10-23 14:53 | disposition home or self-care (01) ==
LOC: 2NENU 11:07 → EMEROO 11:07 → 2NENU 16:04
PROVIDERS: ADMIT Internal Medicine; ATTEND Internal Medicine

== ENCOUNTER 2017-07-22 11:40 | Inpatient (IN) ==
--- NOTE | 2017-07-22 12:14 | Emergency Department Note ---
Disposition Clinical Impression: Compartment syndrome of left hand Qualifiers: Encounter type: initial encounter Qualified Code(s): T79.A12A - Traumatic compartment syndrome of left upper extremity, initial encounter Disposition: Admitted As Inpatient Condition: Fair Referrals: Mona Payton MD [Primary Care Provider] - Forms: ED Satisfaction Letter Time of Disposition: 14:47 Upper Extremity HPI - General Chief Complaint: ED Extremity Injury, Upper Stated Complaint: Needs hand/wrist injury recheck; fingers numb Time Seen by Provider: 07/22/17 11:57 Source: patient Limitations: no limitations Nursing Notes Reviewed: Yes Vital Signs Reviewed: Yes - History of Present Illness HPI Narrative: Alert and oriented nontoxic-appearing 51-year-old female presents for repeat evaluation of a left hand and wrist injury sustained yesterday. The patient was seen at this facility yesterday and x-ray imaging of the left hand was obtained. The patient had originally fallen while getting out of her bathtub. She describes a fall on an outstretched hand type injury. She came in yesterday because of worsening pain, swelling, and the fact that she had a similar episode/injury like this approximately 3 years ago. At that time, she suffered no break however the soft tissue swelling was extensive enough that he required a fasciotomy to decrease the compartment pressures. This was performed by Dr. Abarca. She states that this type of injury yesterday was exactly similar to the previous one which caused the need for the fasciotomy. She states that the pain and swelling are progressing in a manner that is consistent with the previous injury as well. He complains of numbness and tingling of left hand and fingers. He has taken her ibuprofen at home with no relief in symptoms. She does arrive with the volar splint in place that was placed here in the emergency department yesterday. Injury Location: Left: hand, wrist Onset (ago): day(s) (Yesterday) Other Injuries: none Place: home Pain Severity: severe Pain Scale: 10 Improves with: nothing Worsens with: movement of extremity, Palpation Context: fall Associated symptoms: Reports: paresthesias, heard/felt popping sensation Treatments prior to arrival: NSAIDS/other medication - Related Data Home Medications Medication Instructions Recorded Confirmed Duloxetine HCl [Cymbalta] 60 mg PO DAILY 05/23/15 10/21/16 Lactobacillus Acidophilus 1 tab PO DAILY 05/23/15 10/21/16 [Acidophilus] Magnesium Oxide [Magnesium] 400 mg PO DAILY 05/23/15 10/21/16 Promethazine [Phenergan] 25 mg PO PRN PRN 05/23/15 10/21/16 Zolpidem [Ambien] 10 mg PO HS 05/23/15 10/21/16 Gabapentin [Neurontin] 600 mg PO TID 01/17/16 10/21/16 Multivitamin [Multivitamins] 1 tab PO DAILY 01/17/16 10/21/16 Aspirin [Lo-Dose Aspirin EC] 81 mg PO DAILY 02/14/16 10/21/16 Atorvastatin [Lipitor] 80 mg PO DAILY 02/14/16 10/21/16 Furosemide [Lasix] 20 mg PO DAILY 02/14/16 10/21/16 Amitriptyline [Elavil] 25 mg PO DAILY 07/19/16 10/21/16 Carvedilol [Coreg] 6.25 mg PO DAILY 07/19/16 10/21/16 Albuterol Sulfate [Ventolin Hfa] 2 puff IH Q4H PRN 10/21/16 10/21/16 BuPROPion XL (24 HR) [Wellbutrin 150 mg PO DAILY 10/21/16 10/21/16 Xl] Isomethepten/Caf/Acetaminophen 1 each PO Q8H PRN 10/21/16 10/21/16 [Prodrin Caplet] Liraglutide [Victoza 2-Mateusz] 1.2 mg SQ DAILY 10/21/16 10/21/16 Omeprazole [PriLOSEC] 20 mg PO DAILY 10/21/16 10/21/16 Prochlorperazine Maleate 10 mg PO TID PRN 10/21/16 10/21/16 [Compazine] Subcutaneous Insulin Pump [T:Slim] 90 - 120 unit MC DAILY 10/21/16 10/21/16 Previous Rx's Medication Instructions Recorded Ondansetron HCl [Zofran] 4 mg PO Q6HR PRN #10 tablet 02/14/16 HYDROcodone/Acet 7.5/325 mg [[place] 1 tab PO TID PRN #30 tablet 07/21/16 7.5-325 mg] Isosorbide MONOnitrate (24 HR) 30 mg PO DAILY #30 tab.er.24h 10/23/16 [Imdur] Losartan [Cozaar] 50 mg PO DAILY #60 tablet 10/23/16 Butalb/Acetaminophen/Caffeine 1 each PO Q4H #30 capsule 04/24/17 [Fioricet 50-300-40 mg Capsule] Promethazine [Phenergan] 25 mg PO Q8HR #12 tablet 04/24/17 Allergies Allergy/AdvReac Type Severity Reaction Status Date / Time pregabalin [From Lyrica] Allergy Swelling Verified 04/24/17 11:33 of Lip/Tongue/Throat [place] Allergy Hives Verified 04/24/17 11:33 sumatriptan [From Imitrex] Allergy Headache Verified 04/24/17 11:33 ESME Inhibitors AdvReac Cough Verified 04/24/17 11:33 codeine AdvReac Itching Verified 04/24/17 11:33 dihydroergotamine AdvReac Hallucinati Verified 04/24/17 11:33 ng prochlorperazine AdvReac Hallucinati Verified 04/24/17 11:33 [From Compazine] ng [id number] Antimigraine AdvReac Cough Verified 04/24/17 11:33 Agents asolicitic acid Allergy Rash Uncoded 04/24/17 11:33 DHE Allergy Headache Uncoded 04/24/17 11:33 All systems ED: reviewed and negative except as stated. Constitutional: Denies: fever, chills, weakness, weight change Eyes: Denies: eye pain, eye discharge, vision change ENT ED: Denies: ear pain, throat pain, dental pain, hearing loss, epistaxis, congestion, dysphagia Cardiovascular: Denies: chest pain, palpitations, dyspnea on exertion, edema, syncope Respiratory: Denies: cough, dyspnea, wheezes, hemoptysis, stridor Gastrointestinal: Denies: abdominal pain, nausea, vomiting, diarrhea, constipation, hematemesis, melena, hematochezia Genitourinary: Denies: dysuria, frequency, hematuria, discharge Musculoskeletal: Reports: as per HPI, arthralgia (Left hand/wrist pain and swelling). Denies: back pain, neck pain, myalgia Integumentary: Denies: rash, abrasion, lesions Neurological: Denies: headache, weakness, numbness, paresthesias, confusion, abnormal gait, vertigo Psychiatric: Denies: anxiety, depression, suicidal thoughts, homicidal thoughts , auditory hallucinations, visual hallucinations Endocrine: Denies: fatigue Hematological/Lymphatic: Denies: easy bleeding, easy bruising Allergic/Immunologic: Denies: facial swelling, urticaria Past Medical History - Past Medical History Attestation: Yes The following information was validated with the patient. 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 Absent: nystagmus - ENT ENT exam: mucous membranes moist - Neck Neck exam: Present: normal inspection, full ROM, trachea midline - Chest Chest inspection: Present: normal inspection, symmetric chest wall rise - Expanded Upper Extremity Exam Arm exam: Present: normal inspection, full ROM Elbow exam: Present: normal inspection, full ROM Forearm/Wrist exam: Present: tenderness (Tenderness with palpation from the mid forearm distally.), swelling (Extensive soft tissue swelling noted, left wrist) , ecchymosis (Mild ecchymosis noted, distal aspect of left forearm/wrist), tenderness over anatomical snuff box, pain with axial thumb loading. Absent: abrasion, laceration, deformity, crepitus Hand exam: Present: tenderness (Exquisite tenderness with palpation of the left hand diffusely), swelling (Extensive soft tissue swelling noted predominantly of the dorsal aspect of the left hand), ecchymosis (Moderate degree of diffuse ecchymosis noted, left hand). Absent: abrasion, laceration, erythema Neuromotor exam: Normal: wrist extension Neurosensory exam: Normal: radial nerve, ulnar nerve Hand tendon exam: Abnorm: flexor digitorum profundus (location), flexor digitorum superficialis (location), extensor tendon (location) Vascular exam: Normal: capillary refill, radial pulse, ulnar pulse Course Course Narrative: 1300: I spoke with Dr. Abarca, endoscopy support specialist. Dr. Abarca states that he is in house currently and will evaluate the patient in the emergency department. 1315: Dr. Abarca has seen the patient in the department. He has asked for the Bradley device to be brought to bedside. He will return as soon as possible after his surgical case for further evaluation of this patient. 1435: Dr. Abarca performed a bedside evaluation with a hand-held Bradley device. He did find elevated compartment pressures. The patient is being prepared for surgery at this time. She will undergo emergent fasciotomy for a left hand compartment syndrome. Dr. Abarca requests that the patient be admitted to the hospitalist service afterwards. 1513: Spoke with Dr. Lawson of the hospitalist service who has accepted the patient for admission to the hospitalist group with orthopedic consultation. I have consult with Dr. Calixto, ED attending on this patient's case as well. Dr. Calixto has had a [id number] evaluation with patient and agrees with this plan. Vital Signs Temperature 98.2 F 07/22/17 11:51 Pulse Rate 83 07/22/17 11:51 Respiratory Rate 18 07/22/17 11:51 Blood Pressure 182/101 07/22/17 11:51 O2 Sat by Pulse Oximetry 96 07/22/17 11:51 Temperature 98.2 F 07/22/17 11:51 Pulse Rate 83 07/22/17 11:51 Respiratory Rate 16 07/22/17 14:34 Blood Pressure 171/101 07/22/17 14:34 O2 Sat by Pulse Oximetry 96 07/22/17 11:51 Oxygen Delivery Oxygen Delivery Room Air Extremity Injury, Upper - Medical Records Medical records reviewed: Yes I reviewed the patient's medical records. - Radiology Data Radiology results reviewed: Yes I reviewed the patient's radiology results.
--- NOTE | 2017-07-22 12:16 | Emergency Department Note ---
START Narrative - START START: I examined this patient and my medical decision-making was reviewed with the emergency medicine resident. I agree with the documented findings, disposition and treatment plan as described except to the extent set forth below. Patient seen with emergency medicine resident Dr. Donita Ga, Please see a copy of her note for details of the H&P, ED evaluation, management and disposition. I have independently evaluated the patient and confirmed appropriate portions of the history and physical exam. Briefly: 51-year-old female [id number] fall on outstretched wrist was seen at [facility] yesterday had an x-ray of the hand which was negative. She does have a significant history of needing fasciotomy of her left wrist by Dr. Schuler hand surgeon at [facility] for a similar injury and presentation. Patient says that she has increased pain and swelling of the dorsum of her left hand and wrist. We will re-x-rayed the wrist and will contact orthopedics for consultation. It does not appear to be any acute neurovascular compromise but there is fairly significant tissue edema and swelling. No signs of fluctuance infection bleeding. No evidence of skin necrosis. No skin rash.
[2017-07-22] MEDS ORDERED: *HR* OxyCODONE/APAP 5/325 TABLET PO ONE (13:02)
--- NOTE | 2017-07-22 14:59 | Anesthesia Evaluation PreOp ---
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: Other (Fibromyalgia) Other Medical History: Diabetes Type II, Other (Morbid Obesity) Anesthesia History: No Prior Anesthetic Complications : No Alcohol Use: none Drug use: none Medications and Allergies Duloxetine HCl [Cymbalta] 60 mg PO DAILY 05/23/15 [History] Lactobacillus Acidophilus [Acidophilus] 1 tab PO DAILY 05/23/15 [History] Magnesium Oxide [Magnesium] 400 mg PO DAILY 05/23/15 [History] Promethazine [Phenergan] 25 mg PO PRN PRN 05/23/15 [History] Zolpidem [Ambien] 10 mg PO HS 05/23/15 [History] Gabapentin [Neurontin] 600 mg PO TID 01/17/16 [History] Multivitamin [Multivitamins] 1 tab PO DAILY 01/17/16 [History] Aspirin [Lo-Dose Aspirin EC] 81 mg PO DAILY 02/14/16 [History] Atorvastatin [Lipitor] 80 mg PO DAILY 02/14/16 [History] Furosemide [Lasix] 20 mg PO DAILY 02/14/16 [History] Ondansetron HCl [Zofran] 4 mg PO Q6HR PRN #10 tablet 02/14/16 [Rx] Amitriptyline [Elavil] 25 mg PO DAILY 07/19/16 [History] Carvedilol [Coreg] 6.25 mg PO DAILY 07/19/16 [History] HYDROcodone/Acet 7.5/325 mg [[place] 7.5-325 mg] 1 tab PO TID PRN #30 tablet 07/21 [Rx] Albuterol Sulfate [Ventolin Hfa] 2 puff IH Q4H PRN 10/21/16 [History] BuPROPion XL (24 HR) [Wellbutrin Xl] 150 mg PO DAILY 10/21/16 [History] Isomethepten/Caf/Acetaminophen [Prodrin Caplet] 1 each PO Q8H PRN 10/21/16 [ History] Liraglutide [Victoza 2-Mateusz] 1.2 mg SQ DAILY 10/21/16 [History] Omeprazole [PriLOSEC] 20 mg PO DAILY 10/21/16 [History] Prochlorperazine Maleate [Compazine] 10 mg PO TID PRN 10/21/16 [History] Subcutaneous Insulin Pump [T:Slim] 90 - 120 unit MC DAILY 10/21/16 [History] Isosorbide MONOnitrate (24 HR) [Imdur] 30 mg PO DAILY #30 tab.er.24h 10/23/16 [ Rx] Losartan [Cozaar] 50 mg PO DAILY #60 tablet 10/23/16 [Rx] Butalb/Acetaminophen/Caffeine [Fioricet 50-300-40 mg Capsule] 1 each PO Q4H #30 capsule 04/24/17 [Rx] Promethazine [Phenergan] 25 mg PO Q8HR #12 tablet 04/24/17 [Rx] 3 Allergy/AdvReac Type Severity Reaction Status Date / Time pregabalin [From Lyrica] Allergy Swelling Verified 04/24/17 11:33 of Lip/Tongue/Throat [place] Allergy Hives Verified 04/24/17 11:33 sumatriptan [From Imitrex] Allergy Headache Verified 04/24/17 11:33 ESME Inhibitors AdvReac Cough Verified 04/24/17 11:33 codeine AdvReac Itching Verified 04/24/17 11:33 dihydroergotamine AdvReac Hallucinati Verified 04/24/17 11:33 ng prochlorperazine AdvReac Hallucinati Verified 04/24/17 11:33 [From Compazine] ng [id number] Antimigraine AdvReac Cough Verified 04/24/17 11:33 Agents asolicitic acid Allergy Rash Uncoded 04/24/17 11:33 DHE Allergy Headache Uncoded 04/24/17 11:33 - Meds/Allergy Pre-op Review Medications Reviewed: Yes Allergies Reviewed: Yes Anesthesia Results - Labs Laboratory Tests 04/24/17 04/24/17 12:31 12:31 Hgb 13.7 Hct 37.7 Plt Count 265 Sodium 128 L Potassium 4.3 BUN 12 Creatinine 0.88 - Imaging EKG: report reviewed (SR) Additional studies: EF 60% Anesthesia Exam O2 Sat Height 1.65 m Weight 123.377 kg O2 Sat by Pulse Oximetry 96 Vital Signs Temp Pulse Resp BP Pulse Ox 98.2 F 83 18 182/101 96 07/22/17 11:51 07/22/17 11:51 07/22/17 11:51 07/22/17 11:51 07/22/17 11:51 Height: 5'5 Weight: 272 lbs NPO (# of Hours): MN Pain Scale: 5 - HEENT Pupil (Motor): Pupils equal, EOMI Mallampati: III Teeth: Normal Oral Opening: Less than or equal to 3 - 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
--- NOTE | 2017-07-22 14:59 | Orthopedic Consult Note ---
Date of Encounter: 07/22/17 Time of Encounter: 14:57 Assessment and Plan (1) Compartment syndrome of left hand Current Visit: Yes Status: Acute The patient will be taken emergently to the operating room for fasciotomies to the left hand. The risks, benefits alternatives discussed patient. Informed consent was obtained. Preoperative labs and EKG will be obtained. Patient has significant medical comorbidities. She will be managed by the hospitalist's service. Qualifiers: Encounter type: initial encounter Qualified Code(s): T79.A12A - Traumatic compartment syndrome of left upper extremity, initial encounter History of Present Illness Chief complaint: Left hand swelling and pain HPI: Ms. Andrade is a 51 year old [id number] female who slipped and fell, the shell yesterday injuring her left hand. The patient came to mention room yesterday had x-rays taken with no fractures. She had swelling and was splinted with follow-up in the office this week. Patient returns with increasing pain and swelling of the left hand. Patient history significant for prior compartment syndrome of the left hand undergoing fasciotomies by myself. Patient states it feels painful and is going numb just as did the previous time. Past Med Surg Social Fam HX - Past Medical History Medical history: arthritis, asthma, CHF, diabetes, fibromyalgia, GI bleed, hyperlipidemia, hypertension, migraine, myocardial infarction, TIA Psychiatric history: anxiety, depression - Past Surgical History Surgical History: appendectomy, cholecystectomy, orthopedic, other, thyroidectomy - Social History Smoking Status: Former smoker Smokeless Tobacco Status: No Alcohol use: none Drug use: none - Family History Father Hx Family Cardiac Disorders: Yes (Stroke, [place], HTN, HLD) Hx Family Respiratory Disorders: Yes (COPD) Hx Family Cancer: No Hx Family GI Disorders: No Hx Family Endocrine Disorder: Yes (DM) Hx Family Neuromuscular Disorders: Yes (Neuropathy) Hx Family Neurologic Disorders: Yes (Alzheimers) Hx Family HEENT Disorders: No Hx Family Autoimmune Disorders: No Mother Hx Family Neuromuscular Disorders: Yes (parkinsons) Medications and Allergies Duloxetine HCl [Cymbalta] 60 mg PO DAILY 05/23/15 [History] Lactobacillus Acidophilus [Acidophilus] 1 tab PO DAILY 05/23/15 [History] Magnesium Oxide [Magnesium] 400 mg PO DAILY 05/23/15 [History] Promethazine [Phenergan] 25 mg PO PRN PRN 05/23/15 [History] Zolpidem [Ambien] 10 mg PO HS 05/23/15 [History] Gabapentin [Neurontin] 600 mg PO TID 01/17/16 [History] Multivitamin [Multivitamins] 1 tab PO DAILY 01/17/16 [History] Aspirin [Lo-Dose Aspirin EC] 81 mg PO DAILY 02/14/16 [History] Atorvastatin [Lipitor] 80 mg PO DAILY 02/14/16 [History] Furosemide [Lasix] 20 mg PO DAILY 02/14/16 [History] Ondansetron HCl [Zofran] 4 mg PO Q6HR PRN #10 tablet 02/14/16 [Rx] Amitriptyline [Elavil] 25 mg PO DAILY 07/19/16 [History] Carvedilol [Coreg] 6.25 mg PO DAILY 07/19/16 [History] HYDROcodone/Acet 7.5/325 mg [[place] 7.5-325 mg] 1 tab PO TID PRN #30 tablet 07/21 [Rx] Albuterol Sulfate [Ventolin Hfa] 2 puff IH Q4H PRN 10/21/16 [History] BuPROPion XL (24 HR) [Wellbutrin Xl] 150 mg PO DAILY 10/21/16 [History] Isomethepten/Caf/Acetaminophen [Prodrin Caplet] 1 each PO Q8H PRN 10/21/16 [ History] Liraglutide [Victoza 2-Mateusz] 1.2 mg SQ DAILY 10/21/16 [History] Omeprazole [PriLOSEC] 20 mg PO DAILY 10/21/16 [History] Prochlorperazine Maleate [Compazine] 10 mg PO TID PRN 10/21/16 [History] Subcutaneous Insulin Pump [T:Slim] 90 - 120 unit MC DAILY 10/21/16 [History] Isosorbide MONOnitrate (24 HR) [Imdur] 30 mg PO DAILY #30 tab.er.24h 10/23/16 [ Rx] Losartan [Cozaar] 50 mg PO DAILY #60 tablet 10/23/16 [Rx] Butalb/Acetaminophen/Caffeine [Fioricet 50-300-40 mg Capsule] 1 each PO Q4H #30 capsule 04/24/17 [Rx] Promethazine [Phenergan] 25 mg PO Q8HR #12 tablet 04/24/17 [Rx] 3 Allergy/AdvReac Type Severity Reaction Status Date / Time pregabalin [From Lyrica] Allergy Swelling Verified 04/24/17 11:33 of Lip/Tongue/Throat [place] Allergy Hives Verified 04/24/17 11:33 sumatriptan [From Imitrex] Allergy Headache Verified 04/24/17 11:33 ESME Inhibitors AdvReac Cough Verified 04/24/17 11:33 codeine AdvReac Itching Verified 04/24/17 11:33 dihydroergotamine AdvReac Hallucinati Verified 04/24/17 11:33 ng prochlorperazine AdvReac Hallucinati Verified 04/24/17 11:33 [From Compazine] ng [id number] Antimigraine AdvReac Cough Verified 04/24/17 11:33 Agents asolicitic acid Allergy Rash Uncoded 04/24/17 11:33 DHE Allergy Headache Uncoded 04/24/17 11:33 All Systems Reviewed: The remainder of the systems were reviewed and are negative Physical Exam - Constitutional Vitals: Temp Pulse Resp BP Pulse Ox 98.2 F 83 16 171/101 96 07/22/17 11:51 07/22/17 11:51 07/22/17 14:34 07/22/17 14:34 07/22/17 11:51 General appearance IM: mild distress, A&O X 3, answers questions appropriately Exam: Left upper extremity: Significant swelling on dorsum and palmar surface of hand , mild swelling of digits, minimal swelling on the volar aspect of forearm, for mild swelling and proximal dorsal wrist. Dorsum of hand is soft to touch and mildly painful. The palmar surface is more swollen and tender and firm feeling. She has limited range of motion of the digits secondary to pain. There is fair passive range of motion with minimal pain. Tingling in fingertips. Good capillary refill. Old surgical scars are barely visible from prior fasciotomies. Using the [employer] manometer, compartment pressures were measured. Her diastolic pressure was measured at 101 mmHg. The dorsal interosseous space between the third and fourth metacarpals was measured at 26 mm Hg Next went to the hyperthenar muscles, this measured 48. Further measurements were not taken as patient will require compartment releases. Results - Labs Labs: All other labs normal. - Diagnostic results Wrist/Hand x-ray: image reviewed (Left hand x-ray shows no fractures, no appointment is, soft tissue swelling) Consult Discharge Plan - Plan Referrals: Mona Payton MD [Primary Care Provider] -
[2017-07-22] MEDS ORDERED: *HR* FentaNYL (PF) 100 MCG/2 ML VIAL ONE (15:17)
[2017-07-22] MEDS ORDERED: *HR* Propofol 200 MG/20 ML VIAL IVP ONE (15:18)
[2017-07-22] MEDS ORDERED: Lidocaine -MPF 2% 2 ML VIAL ONE ×2 (15:18→15:40)
[2017-07-22] MEDS ORDERED: Lidocaine -MPF 4% 5 ML AMPUL ONE (15:18)
[2017-07-22] MEDS ORDERED: Ondansetron 4 MG/2 ML VIAL ONE ×2 (15:18→17:24)
[2017-07-22] MEDS ORDERED: Acetaminophen IV 1,000 MG/100 ML INFUS..BTL ONE (15:46)
[2017-07-22] MEDS ORDERED: Dexamethasone 4 MG/ML VIAL ONE (15:51)
[2017-07-22] MEDS ORDERED: *HR* Morphine 10 MG/ML VIAL ONE (15:56)
[2017-07-22] MEDS ORDERED: *HR* Metoprolol 5 MG/5 ML VIAL IVP ONE (15:58)
[2017-07-22] MEDS ORDERED: ceFAZolin 2,000 MG in Water for inj. (sterile) 20 ML IVP ONE (16:06)
[2017-07-22] MEDS ORDERED: CeFAZolin Premix DUPLEX 2,000 MG/50 ML BAG IVPB ONE ×2 (16:15→18:03)
--- NOTE | 2017-07-22 17:22 | Anesthesia Evaluation Post Op ---
Date of Encounter: 07/22/17 Time of Encounter: 17:30 - Vital Signs Vital Signs: Vital Signs/O2 Sat/Glucose, Most Current Temp Pulse Resp BP Pulse Ox 07/22/17 17:20 76 14 148/66 94 07/22/17 17:10 98.5 F 86 14 150/91 92 07/22/17 14:34 86 16 171/101 - Lungs Lungs: Clear Ascult./Percussion - Airway Airway: Non-obstructed - Cardiovascular Regular Rate - Mental Status Mental Status: Alert & Oriented, Answers Appropriately - Pain Pain Scale: 2 - Nausea Vomiting Nausea Vomiting: Not Present - Hydration Hydration: Ice chips - Discharge PostOp Status: Transfer Patient to floor
[2017-07-22] MEDS ORDERED: Insulin Human Regular 10 UNIT in 0.9 % Sodium Chloride 10 ML IV ONE (17:28)
[2017-07-22] MEDS ORDERED: Ondansetron 4 MG/2 ML VIAL IVP PRN (17:28)
[2017-07-22] MEDS ORDERED: *HR* Promethazine 25 MG/ML VIAL ONE (17:38)
[2017-07-22] MEDS: *HR* Promethazine 25 MG/ML VIAL IVP PRN ×2 (17:40→17:50)
[2017-07-22] MEDS ORDERED: CAFFEINE PO PRN (18:03)
[2017-07-22] MEDS ORDERED: ISOMETHEPTENE PO PRN (18:03)
[2017-07-22] MEDS ORDERED: Acetaminophen/Butalbital/CaffeineTABLET PO SCH (18:03)
[2017-07-22] MEDS ORDERED: ACETAMINOPHEN PO PRN (18:03)
[2017-07-22] MEDS ORDERED: Dextrose Gel 15 GM/37.5 ML TUBE PO PRN ×2 (18:05)
[2017-07-22] MEDS ORDERED: *HR* Dextrose 50 % in Water (Syg) 50 ML SYRINGE IVP PRN (18:05)
[2017-07-22] MEDS ORDERED: D5% in Water 1,000 ML IVC PRN (18:05)
[2017-07-22] MEDS: *HR* OxyCODONE Immed Rel 5 MG TABLET PO PRN ×2 (18:49→22:57)
[2017-07-22] MEDS ORDERED: Acetaminophen/Butalbital/CaffeineTABLET PO PRN (19:01)
[2017-07-22] MEDS: CeFAZolin Premix DUPLEX 2,000 MG/50 ML BAG IVPB SCH (19:51)
[2017-07-22] MEDS ORDERED: Naloxone 0.4 MG/ML INJ IVP PRN (20:08)
--- NOTE | 2017-07-22 20:22 | Internal Med History&Physical ---
Date of Encounter: 07/22/17 Time of Encounter: 19:30 Assessment and Plan (1) CHF (congestive heart failure) Current visit: Yes Status: Acute Appears euvolemic at this point. Continue home medications. Qualifiers: Heart failure type: unspecified Heart failure chronicity: chronic Qualified Code(s): I50.9 - Heart failure, unspecified (2) COPD (chronic obstructive pulmonary disease) Current visit: Yes Status: Acute Stable, no signs of exacerbation. Continue DuoNeb when necessary. Patient uses home oxygen, continue nasal cannula oxygen Qualifiers: COPD type: emphysema Emphysema type: unspecified Qualified Code(s): J43.9 - Emphysema, unspecified (3) Compartment syndrome of left hand Current visit: Yes Status: Acute Due to mechanical fall and head injury. Had fasciotomies by orthopedic already. Continue pain control and closely monitor patient Qualifiers: Encounter type: initial encounter Qualified Code(s): T79.A12A - Traumatic compartment syndrome of left upper extremity, initial encounter (4) DVT prophylaxis Current visit: No Status: Acute EPCD (5) Diabetes Current visit: No Status: Acute Patient uses insulin pump at home. She did not bring her pump to the hospital. 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 Qualifiers: Hypertension type: essential hypertension Qualified Code(s): I10 - Essential (primary) hypertension (7) CAD (coronary artery disease) Current visit: No Status: Chronic No chest pain at this point. Continue home medication aspirin, beta tootie, imdur, and statin Qualifiers: Coronary Disease-Associated Artery/Lesion type: [place] artery [place] vs. transplanted heart: [place] heart Associated angina: with unspecified angina Qualified Code(s): I25.119 - Atherosclerotic heart disease of [place] coronary artery with unspecified angina pectoris (8) Morbid obesity with BMI of 45.0-49.9, adult Current visit: No Status: Chronic Needs lifestyle modification as outpatient Internal Medicine - H&P: HPI Chief complaint: Left hand pain Admitted From: Home Plans for Post Hospital Care: Home History of present illness: Ms. Andrade is a 51 year old female with history of diabetes, hypertension, CAD, IBS, CHF, COPD, migraine, fibromyalgia, presented to ER for fall and left hand pain. Patient said that yesterday evening she fell because of the ground is slippery. Patient denies loss of consciousness. Patient denies head or neck injury. Patient had injured her left hand, otherwise no further injury. Patient went to ER yesterday and x-ray of the left hand shows no fracture. Patient was given pain medication and discharged to home. Patient feels the pain getting worse today and came to ER again. Orthopedic was counseled and the patient was considered compartment syndrome. Patient was brought to OR immediately and had decompression surgery. Patient has finished the surgery now and admitted for further management. Past Med Surg Social Fam HX - Past Medical History Medical history: arthritis, asthma, CHF, diabetes, fibromyalgia, GI bleed, hyperlipidemia, hypertension, migraine, myocardial infarction, TIA Psychiatric history: anxiety, depression - Past Surgical History Surgical History: appendectomy, cholecystectomy, orthopedic, other, thyroidectomy - Social History Smoking Status: Former smoker Smokeless Tobacco Status: No Alcohol use: none Drug use: none - Family History Father Hx Family Cardiac Disorders: Yes (Stroke, [place], HTN, HLD) Hx Family Respiratory Disorders: Yes (COPD) Hx Family Cancer: No Hx Family GI Disorders: No Hx Family Endocrine Disorder: Yes (DM) Hx Family Neuromuscular Disorders: Yes (Neuropathy) Hx Family Neurologic Disorders: Yes (Alzheimers) Hx Family HEENT Disorders: No Hx Family Autoimmune Disorders: No Mother Hx Family Neuromuscular Disorders: Yes (parkinsons) Internal Medicine - H&P: Meds Duloxetine HCl [Cymbalta] 60 mg PO DAILY 05/23/15 [History] Lactobacillus Acidophilus [Acidophilus] 1 tab PO DAILY 05/23/15 [History] Magnesium Oxide [Magnesium] 400 mg PO DAILY 05/23/15 [History] Promethazine [Phenergan] 25 mg PO PRN PRN 05/23/15 [History] Zolpidem [Ambien] 10 mg PO HS 05/23/15 [History] Gabapentin [Neurontin] 600 mg PO TID 01/17/16 [History] Multivitamin [Multivitamins] 1 tab PO DAILY 01/17/16 [History] Aspirin [Lo-Dose Aspirin EC] 81 mg PO DAILY 02/14/16 [History] Atorvastatin [Lipitor] 80 mg PO DAILY 02/14/16 [History] Furosemide [Lasix] 20 mg PO DAILY 02/14/16 [History] Ondansetron HCl [Zofran] 4 mg PO Q6HR PRN #10 tablet 02/14/16 [Rx] Amitriptyline [Elavil] 25 mg PO DAILY 07/19/16 [History] Carvedilol [Coreg] 6.25 mg PO DAILY 07/19/16 [History] HYDROcodone/Acet 7.5/325 mg [[place] 7.5-325 mg] 1 tab PO TID PRN #30 tablet 07/21 [Rx] Albuterol Sulfate [Ventolin Hfa] 2 puff IH Q4H PRN 10/21/16 [History] BuPROPion XL (24 HR) [Wellbutrin Xl] 150 mg PO DAILY 10/21/16 [History] Isomethepten/Caf/Acetaminophen [Prodrin Caplet] 1 each PO Q8H PRN 10/21/16 [ History] Liraglutide [Victoza 2-Mateusz] 1.2 mg SQ DAILY 10/21/16 [History] Omeprazole [PriLOSEC] 20 mg PO DAILY 10/21/16 [History] Prochlorperazine Maleate [Compazine] 10 mg PO TID PRN 10/21/16 [History] Subcutaneous Insulin Pump [T:Slim] 90 - 120 unit MC DAILY 10/21/16 [History] Isosorbide MONOnitrate (24 HR) [Imdur] 30 mg PO DAILY #30 tab.er.24h 10/23/16 [ Rx] Losartan [Cozaar] 50 mg PO DAILY #60 tablet 10/23/16 [Rx] Butalb/Acetaminophen/Caffeine [Fioricet 50-300-40 mg Capsule] 1 each PO Q4H #30 capsule 04/24/17 [Rx] Promethazine [Phenergan] 25 mg PO Q8HR #12 tablet 04/24/17 [Rx] 3 Allergy/AdvReac Type Severity Reaction Status Date / Time pregabalin [From Lyrica] Allergy Swelling Verified 04/24/17 11:33 of Lip/Tongue/Throat [place] Allergy Hives Verified 04/24/17 11:33 sumatriptan [From Imitrex] Allergy Headache Verified 04/24/17 11:33 ESME Inhibitors AdvReac Cough Verified 04/24/17 11:33 codeine AdvReac Itching Verified 04/24/17 11:33 dihydroergotamine AdvReac Hallucinati Verified 04/24/17 11:33 ng prochlorperazine AdvReac Hallucinati Verified 04/24/17 11:33 [From Compazine] ng [id number] Antimigraine AdvReac Cough Verified 04/24/17 11:33 Agents asolicitic acid Allergy Rash Uncoded 04/24/17 11:33 DHE Allergy Headache Uncoded 04/24/17 11:33 All Systems PM: A 10-system review of systems was performed and is negative for pertinent findings except as documented above in the HPI. - Constitutional Vitals: Temp Pulse Resp BP Pulse Ox 98.1 F 75 16 134/64 98 07/22/17 18:27 07/22/17 18:27 07/22/17 18:27 07/22/17 18:27 07/22/17 18:27 General appearance: Present: A&O X 3, no acute distress, answers questions appropriately - Head Head exam: Present: atraumatic, normocephalic - Eye Eye exam: Present: PERRL, conjuntiva pink, sclera anicteric Pupils: Present: PERRL - Neck Neck exam general surgery: Present: supple, trachea midline. Absent: lymphadenopathy - Respiratory Respiratory exam: Present: CTAB. Absent: accessory muscle use, rales, rhonchi, wheezes - Cardiovascular Cardiovascular exam: Present: RRR, +S1, +S2. Absent: diastolic murmur, gallop, rubs, systolic murmur - GI/Abdominal GI/Abdominal exam: Present: normal bowel sounds, soft, no peritoneal signs. Absent: distended, tenderness - Extremities Exam Extremities exam: Present: warm, radial pulses palpable and symmetrical. Absent : calf tenderness, cyanotic, pedal edema Additional comments: Left hand S/P surgery, well dressed. - Neurological Exam Neurological exam: Present: CN II-XII intact, oriented X3, no focal deficits. Absent: pronater drift, facial droop, speech deficit - Skin Skin exam: Present: dry, intact - VTE Documentation of Mechanical Device: Intermittent pneumatic compression device
[2017-07-22] MEDS: Ondansetron 4 MG/2 ML VIAL IVP PRN (20:44)
[2017-07-22] MEDS ORDERED: Insulin DETEMIR 100 UNIT/ML X5UNITS SQ SCH (21:00)
[2017-07-22] MEDS ORDERED: Insulin LISPRO 300 UNITS/3 ML VIAL SQ SCH (21:00)
[2017-07-22] MEDS: Gabapentin 300 MG CAPSULE PO SCH (21:27)
[2017-07-23] MEDS ORDERED: Ondansetron 4 MG/2 ML VIAL IVP SCH
[2017-07-23] MEDS: *HR* OxyCODONE Immed Rel 5 MG TABLET PO PRN ×6 (01:25→20:27)
[2017-07-23] MEDS: CeFAZolin Premix DUPLEX 2,000 MG/50 ML BAG IVPB SCH (04:31)
[2017-07-23 06:36] LABS: Basophils % 0.2 %; Hematocrit 33.6 % (35.3-44.9); Hemoglobin 11.9 g/dL (11.5-15.4); Immature Granulocytes % 0.5 % (0-4); Immature Platelets 4.7 % (1.1-6.1); Lymphocytes # 1.5 K/mcL (0.6-4.6); Lymphocytes % 11.9 %; Mean Corpuscular HGB Conc 35.4 g/dL (31.6-35.5); Mean Corpuscular Hemoglobin 31.2 pg (28.0-33.3); Mean Corpuscular Volume 88.2 fL (83.0-100.0); Mean Platelet Volume 10.4 fL (9.4-12.4); Monocytes # 0.6 K/mcL (0.0-1.3); Monocytes % 4.3 %; Neutrophils # 10.7 K/mcL (1.6-8.9); Platelet Count 284 K/mcL (140-400); Red Blood Count 3.81 M/mcL (3.82-4.97); Red Cell Distribution Width 12.5 % (11.5-14.5); Segmented Neutrophils % 83.1 %
[2017-07-23 07:07] LABS: BUN/Creatinine Ratio 18 (6-26); Blood Urea Nitrogen 12 mg/dL (6-20); Carbon Dioxide 24 mEq/L (23-29); Chloride 96 mEq/L (98-107); Glucose 299 mg/dL (70-105); Magnesium 1.6 mg/dL (1.6-2.6); Osmolality,Calculated 283 (280-300); Potassium 4.1 mEq/L (3.5-5.1); Sodium 131 mEq/L (136-145); eGFR For African Americans > 60 (> 60); eGFR For Non-African Americans > 60 (> 60)
[2017-07-23] MEDS ORDERED: Insulin LISPRO 300 UNITS/3 ML VIAL SQ SCH (07:30)
[2017-07-23] MEDS: Insulin LISPRO 300 UNITS/3 ML VIAL SQ SCH ×4 (08:01→21:38)
[2017-07-23] MEDS: Isosorbide MONOnitrate (24 HR) 30 MG TAB.ER.24H PO SCH (08:02)
[2017-07-23] MEDS: Gabapentin 300 MG CAPSULE PO SCH ×3 (08:02→20:27)
[2017-07-23] MEDS: Multivit/Ca/Min/Fe/FA 1 TAB TABLET PO SCH (08:02)
[2017-07-23] MEDS: Furosemide 20 MG TABLET PO SCH (08:02)
[2017-07-23] MEDS: BuPROPion XL (24 HR) 150 MG TABLET PO SCH (08:02)
[2017-07-23] MEDS: Aspirin Enteric Coated 81 MG Tablet PO SCH (08:02)
[2017-07-23] MEDS: Magnesium Oxide 400 MG TABLET PO SCH (08:02)
[2017-07-23] MEDS: (Liraglutide [Victoza 2-Pak] 1.2 MG) SQ SCH (08:03)
[2017-07-23] MEDS ORDERED: CeFAZolin Premix DUPLEX 2,000 MG/50 ML BAG IVPB ONE (10:53)
--- NOTE | 2017-07-23 11:15 | Internal Med Progress Note ---
<SloanAugustus - Last Filed: 07/23/17 16:07> Date of Encounter: 07/23/17 Time of Encounter: 09:13 - Assessment and plan (1) Compartment syndrome of left hand Current Visit: Yes Status: Acute Assessment and plan: -Due to mechanical fall and head injury -Had fasciotomies by orthopedic already -Wrist XR demonstrated the following: Large amount of swelling; no definite acute osseous abnormality -Patient reports significan pain in the left hand, but does not appear to be in acute distress at this time -Continue pain control and closely monitor patient Qualifiers: Encounter type: initial encounter Qualified Code(s): T79.A12A - Traumatic compartment syndrome of left upper extremity, initial encounter (2) CHF (congestive heart failure) Current Visit: Yes Status: Acute Assessment and plan: -Appears euvolemic at this point -Continue home medications. Qualifiers: Heart failure type: unspecified Heart failure chronicity: chronic Qualified Code(s): I50.9 - Heart failure, unspecified (3) COPD (chronic obstructive pulmonary disease) Current Visit: Yes Status: Acute Assessment and plan: -Stable, no signs of exacerbation -Continue DuoNeb when necessary -Patient uses home oxygen, continue O2 via [place] Qualifiers: COPD type: emphysema Emphysema type: unspecified Qualified Code(s): J43.9 - Emphysema, unspecified (4) Diabetes Current Visit: No Status: Acute Assessment and plan: -Patient uses insulin pump at home -Basal and sliding scale insulin Qualifiers: Diabetes mellitus type: type 2 Diabetes mellitus long-term insulin use: with termite control servicer use Diabetes mellitus complication status: without complication Qualified Code(s): E11.9 - Type 2 diabetes mellitus without complications; Z79.4 - exterminator helper (current) use of insulin; Z79.4 - correction ( current) use of insulin; Z79.4 - exterminator helper (current) use of insulin; Z79.4 - exterminator helper (current) use of insulin (5) HTN (hypertension) Current Visit: No Status: Acute Assessment and plan: -Continue home medications. Qualifiers: Hypertension type: essential hypertension Qualified Code(s): I10 - Essential (primary) hypertension (6) CAD (coronary artery disease) Current Visit: No Status: Chronic Assessment and plan: -No chest pain at this point -Continue home medication aspirin, beta tootie, imdur, and statin Qualifiers: Coronary Disease-Associated Artery/Lesion type: [place] artery [place] vs. transplanted heart: [place] heart Associated angina: with unspecified angina Qualified Code(s): I25.119 - Atherosclerotic heart disease of [place] coronary artery with unspecified angina pectoris (7) DVT prophylaxis Current Visit: No Status: Acute Assessment and plan: -EPCD - Subjective Interval history: Ms. Andrade is a 51 year old female who presented to ER for fall and left hand pain. Denied LOC. Patient injured her left hand, otherwise no further injury. Patient went to ER and x-ray of the left hand showed no fracture. Patient was given pain medication and discharged to home. Patient felt the pain getting worse and came to ER the next day. Orthopedics was counseled and the patient was diagnosed with compartment syndrome. Patient was brought to OR immediately and had decompression surgery. Patient was seen and examined at bedside this morning. Patient reports that she still has pain in her hand. Status post fasciotomy of the left hand. Hand completely wrapped at this time. Does not appear to be in distress at this time. - Constitutional Vitals: Temp Pulse Resp BP Pulse Ox 98.4 F 81 18 104/60 97 07/23/17 11:06 07/23/17 11:06 07/23/17 11:06 07/23/17 11:06 07/23/17 11:06 General appearance: Present: A&O X 3, no acute distress, answers questions appropriately - Head Head exam: Present: atraumatic, normocephalic - Eye Eye exam: Present: PERRL, conjuntiva pink, sclera anicteric Pupils: Present: PERRL - Neck Neck exam general surgery: Present: supple, trachea midline. Absent: lymphadenopathy - Respiratory Respiratory exam: Present: CTAB. Absent: accessory muscle use, rales, rhonchi, wheezes - Cardiovascular Cardiovascular exam: Present: RRR, +S1, +S2. Absent: diastolic murmur, gallop, rubs, systolic murmur - GI/Abdominal Additional comments: L hand is wrapped - Extremities Exam Extremities exam: Present: warm, radial pulses palpable and symmetrical. Absent : calf tenderness, cyanotic, pedal edema - Neurological Exam Neurological exam: Present: CN II-XII intact, oriented X3, no focal deficits. Absent: pronater drift, facial droop, speech deficit - Skin Skin exam: Present: dry, intact Internal Medicine: Result - Labs CBC & Chem 7: 07/23/17 04:39 07/23/17 04:39 Labs: Short CBC 07/23/17 Range/Units 04:39 WBC 12.9 H (4.3-11.1) K/mcL Hgb 11.9 (11.5-15.4) g/dL Hct 33.6 L (35.3-44.9) % Plt Count 284 (140-400) K/mcL Neutrophils # 10.7 H (1.6-8.9) K/mcL BMP 07/23/17 04:39 Sodium 131 L Potassium 4.1 Chloride 96 L Carbon Dioxide 24 BUN 12 Creatinine 0.66 Glucose 299 H Calcium 9.0 - VTE Documentation of Mechanical Device: Intermittent pneumatic compression device Consult Discharge Plan - Plan Referrals: Mona Payton MD [Primary Care Provider] - <Erik Alvarez - Last Filed: 07/23/17 17:57> Date of Encounter: 07/23/17 - Constitutional Vitals: Temp Pulse Resp BP Pulse Ox 97.8 F 74 18 95/55 98 07/23/17 14:44 07/23/17 14:44 07/23/17 14:44 07/23/17 14:44 07/23/17 14:44 Internal Medicine: Result - Labs CBC & Chem 7: 07/23/17 04:39 07/23/17 04:39 Labs: Short CBC 07/23/17 Range/Units 04:39 WBC 12.9 H (4.3-11.1) K/mcL Hgb 11.9 (11.5-15.4) g/dL Hct 33.6 L (35.3-44.9) % Plt Count 284 (140-400) K/mcL Neutrophils # 10.7 H (1.6-8.9) K/mcL BMP 07/23/17 04:39 Sodium 131 L Potassium 4.1 Chloride 96 L Carbon Dioxide 24 BUN 12 Creatinine 0.66 Glucose 299 H Calcium 9.0 - Attending Attestation I examined this patient and my medical decision-making was reviewed with the Resident Physician. I agree with the documented findings, disposition and treatment plan as described except to the extent set forth below.
[2017-07-23] MEDS: Ondansetron 4 MG/2 ML VIAL IVP PRN ×2 (11:35→20:28)
--- NOTE | 2017-07-23 17:20 | Operative Note ---
Date of procedure: 07/22/17 Pre-op diagnosis: Left hand compartment syndrome with paresthesias Post-op diagnosis: same Procedure: Left hand decompressive fasciotomies, open carpal and Guyon tunnel releases Complications: None Anesthesia: PAPITO Surgeon: Kyaw Abarca Was there an medical practice assistant present: No Estimated blood loss (cc): 20 Tourniquet Time (Minutes): 11 (4, then 7) Specimen: 0 Disposition: PACU Procedure in Detail: Indications: The patient is 51-year-old woman who has a prior history of left hand compartment syndrome with fasciotomies just over 7 years ago. The patient fell yesterday reinjuring the left hand. She came to the emergency room with swelling of the hand. X-ray showed no fractures. Today she returns with increasing swelling and severe pain as it was 7 years ago. The hypothenar compartment measured 48 mm today. Procedure: The patient was brought into the OR and placed on the OR table in supine position with the left upper extremity on a hand table. A sign in was performed. The patient was given IV antibiotics. She underwent general anesthesia. A tourniquet was placed on her left arm close to the axilla. The left upper extremity was then prepped and draped in usual sterile fashion. A timeout was performed. Starting on the dorsum of the hand, I utilized the old incision. She distally had a single midline longitudinal incision, approximately 5 cm long. This was sharply incised. Skin flaps were elevated giving exposure to the dorsum of the hand. Hemostat was used to spread decompressing the 4 dorsal interossei compartments, and bluntly spread across to release the 3 volar interossei compartments, also removing along the second metacarpal to release the adductor space. A 3 cm incisions was made on the radial side of the first metacarpal, through the old surgical scar, to decompress the thenar musculature. A 3 cm incision was made on the ulna aspect of the hand, through the old surgical scar decompressing the hypothenar compartment. The digits were all very soft with mild swelling. The patient's palm was stilll very tense. She was having paresthesias in all digits. Previously we released the carpal tunnel and Guyon's tunnel. The left upper extremity was elevated, exsanguinated with an Elijah wrap, and the tourniquet was raised pressure 250 mmHg. Utilizing the old surgical scar, an extensile open carpal tunnel release incision was made. A 5 cm incision was made starting from Rodrigues's cardinal line , in line with the ulnar border of the ring finger and going proximally to the distal wrist flexion crease curving incision ulnarly. Sharply dissected through the palmar fascia on the medial side and identifying the transverse carpal ligament. This was sharply incised with a scalpel and going distally, completing the release with tenotomies. Next went proximally and released the antebrachial fascia under direct visualization. We palpated the proximal and distal ends make sure there were no longer any tight bands over the median nerve. The carpal contents examined and they have been in good condition. The median nerve was dissected out and mobilize which was adherent to the transverse carpal ligament. The tourniquet was deflated after 4 minutes. The hand softened up significantly on the dorsum but not the palmar surface. We then used the [place] compartment measuring manometer device to recheck her pressures. The dorsal interossei between the second and third rays measured 16 mmHg, the dorsum of his first webspace measured 20 mmHg. The thenar eminence measured 25, and a hypothenar eminence measured 35 mmHg also. The incisions were lengthened 2 cm on the radial and ulnar sides. It was also decided to re- decompress Guyon's tunnel. The tourniquet was raised once again after exsanguination. Moving over ulnarly. We dissected through the hyperthenar fat pad and identified the transverse fascia forming the roof of Guyon's tunnel. This was sharply incised with tenotomies. The ulnar artery was first identified and from there going over mall ulnarly, we identified the ulnar nerve. Proximally, the remaining antebrachial fascia was released. We then traced out the ulnar nerve going distally to the point was branching off into the cutaneous digital nerves. There was significant scar tissue covering the nerve and its distal end of the Guyon's tunnel. This was sharply dissected off the nerve. The incision also extended another 2 cm into the distal palm. The tourniquet was deflated once again after 7 minutes. The wounds were copiously irrigated with normal saline. The carpal tunnel incision was then closed with 4-0 nylon mattress and simple sutures, sign from Rodrigues's cardinal line and going proximally. The distal end of the incision was just loosely tacked down. The dorsal skin incision was enclosed also 4 nylon mattress simple sutures, closing the ends and loosely approximating the middle. I checked compartment pressures once again at the interossei space, thenar and hyperthenar areas measuring and the 15 to 16 mmHg range. Sterile dressings applied, and the patient was wrapped with Kerlix. The patient was extubated and taken to recovery room in stable condition.
--- NOTE | 2017-07-23 17:50 | Orthopedics Progress Note ---
Date of Encounter: 07/23/17 Time of Encounter: 14:00 - Assessment and Plan (1) Compartment syndrome of left hand Current Visit: Yes Status: Acute POD#1 s/p - Left hand decompressive fasciotomies 07/22/17 Dressings were changed today. Will continue daily dressings changes. Continue elevating hand in stockinette from IV pole. Continue ROM of fingers as tolerated. Plan to return to OR on 07/26/17 for possible wound closure. Qualifiers: Encounter type: initial encounter Qualified Code(s): T79.A12A - Traumatic compartment syndrome of left upper extremity, initial encounter Subjective Principal diagnosis: POD#1 s/p - Left hand decompressive fasciotomies 07/22/17 Interval history: Patient doing well today, states pain is tolerable. She has been trying to keep hand elevated hanging from stockinette. She has had trouble with moving fingers. admits to tingling to fingers. Denies any new concerns at this time. Objective Vital signs: Vital Signs Temp Pulse Resp BP Pulse Ox 07/23/17 14:44 97.8 F 74 18 95/55 98 07/23/17 11:06 98.4 F 81 18 104/60 97 07/23/17 06:45 98.1 F 80 18 108/69 98 07/23/17 03:27 97.9 F 80 16 109/68 97 07/23/17 00:21 96.0 F L 81 16 135/71 96 Intake and Output 07/23/17 07/23/17 07/23/17 07:59 15:59 23:59 Intake Total 445 / 445 240 / 240 Output Total 150 / 150 Balance 295 / 295 240 / 240 Intake: Oral 445 / 445 240 / 240 Output: Urine 150 / 150 Other: Meal Lunch Percent of Meal Consumed 100% 100% # Voids 2 4 Weight 129.4 kg Blood Glucose* 283 254 279 Patient Weight 07/23/17 23:59 Weight 129.4 kg Incision: healing (Incisions open to left hand on all sides. postoperative dressings removed today. No active drainage, no erythema, minimal ecchymosis. ROM of fingers and wrist restricted. grossly NV intact.) - Labs CBC & BMP: 07/23/17 04:39 07/23/17 04:39 Labs: Abnormal lab results WBC 12.9 K/mcL (4.3-11.1) H 07/23/17 04:39 RBC 3.81 M/mcL (3.82-4.97) L 07/23/17 04:39 Hct 33.6 % (35.3-44.9) L 07/23/17 04:39 Neutrophils # 10.7 K/mcL (1.6-8.9) H 07/23/17 04:39 Sodium 131 mEq/L (136-145) L 07/23/17 04:39 Chloride 96 mEq/L (98-107) L 07/23/17 04:39 Glucose 299 mg/dL (70-105) H 07/23/17 04:39 POC Glucose 279 (58-89) H 07/23/17 16:04 - VTE Documentation of Mechanical Device: Intermittent pneumatic compression device Consult Discharge Plan - Plan Referrals: Mona Payton MD [Primary Care Provider] -
[2017-07-23] MEDS ORDERED: Insulin DETEMIR 100 UNIT/ML X5UNITS SQ SCH (21:00)
[2017-07-24] MEDS ORDERED: CeFAZolin Syringe 2,000MG/20 ML SYR IVPB SCH
[2017-07-24] MEDS: CeFAZolin Premix DUPLEX 2,000 MG/50 ML BAG IVPB SCH ×3 (00:31→15:36)
[2017-07-24] MEDS: *HR* OxyCODONE Immed Rel 5 MG TABLET PO PRN ×6 (00:32→22:19)
[2017-07-24] MEDS: Ondansetron 4 MG/2 ML VIAL IVP PRN ×3 (04:36→18:07)
[2017-07-24] MEDS: Insulin LISPRO 300 UNITS/3 ML VIAL SQ SCH ×4 (08:11→21:13)
[2017-07-24] MEDS: Aspirin Enteric Coated 81 MG Tablet PO SCH (08:12)
[2017-07-24] MEDS: Multivit/Ca/Min/Fe/FA 1 TAB TABLET PO SCH (08:12)
[2017-07-24] MEDS: Furosemide 20 MG TABLET PO SCH (08:12)
[2017-07-24] MEDS: Isosorbide MONOnitrate (24 HR) 30 MG TAB.ER.24H PO SCH (08:13)
[2017-07-24] MEDS: Gabapentin 300 MG CAPSULE PO SCH ×3 (08:13→21:12)
[2017-07-24] MEDS: Magnesium Oxide 400 MG TABLET PO SCH (08:13)
[2017-07-24] MEDS: BuPROPion XL (24 HR) 150 MG TABLET PO SCH (08:13)
[2017-07-24] MEDS: (Liraglutide [Victoza 2-Pak] 1.2 MG) SQ SCH (08:14)
[2017-07-24 13:15] LABS: Basophils # 0.1 K/mcL (0.0-0.2); Basophils % 0.5 %; Eosinophils # 0.1 K/mcL (0.0-0.6); Eosinophils % 1.1 %; Hematocrit 29.4 % (35.3-44.9); Hemoglobin 10.3 g/dL (11.5-15.4); Immature Granulocytes % 0.5 % (0-4); Lymphocytes # 2.9 K/mcL (0.6-4.6); Lymphocytes % 26.5 %; Mean Corpuscular Hemoglobin 30.8 pg (28.0-33.3); Mean Platelet Volume 9.8 fL (9.4-12.4); Monocytes # 0.8 K/mcL (0.0-1.3); Platelet Count 242 K/mcL (140-400); Red Blood Count 3.34 M/mcL (3.82-4.97); Red Cell Distribution Width 12.9 % (11.5-14.5); Segmented Neutrophils % 64.4 %
--- NOTE | 2017-07-24 13:23 | Orthopedics Progress Note ---
Date of Encounter: 07/24/17 Time of Encounter: 12:40 - Assessment and Plan (1) Compartment syndrome of left hand Current Visit: Yes Status: Acute POD#2 s/p - Left hand decompressive fasciotomies 07/22/17 Dressings were changed today. Will continue daily dressing changes. Hospitalist is addressing pain control. Continue abx. Continue elevating hand in stockinette from IV pole. Continue working on ROM of fingers as tolerated. Plan to return to OR on 07/26/17 for possible wound closure. Qualifiers: Encounter type: initial encounter Qualified Code(s): T79.A12A - Traumatic compartment syndrome of left upper extremity, initial encounter Subjective Principal diagnosis: POD#2 s/p - Left hand decompressive fasciotomies 07/22/17 Interval history: Patient doing well today but having trouble keeping pain under control. She has been trying to keep hand elevated hanging from stockinette. She has had trouble with moving fingers. admits to tingling to fingers. Denies any new concerns at this time. Objective Vital signs: Vital Signs Temp Pulse Resp BP Pulse Ox 07/24/17 10:44 98.0 F 84 18 90/51 96 07/24/17 06:42 98.3 F 90 20 144/64 95 07/24/17 02:59 98.9 F 91 18 124/54 95 07/23/17 23:18 98.4 F 85 18 127/65 96 07/23/17 18:54 98.4 F 80 18 140/61 97 07/23/17 16:45 103/58 07/23/17 14:44 97.8 F 74 18 95/55 98 Intake and Output 07/23/17 07/24/17 07/24/17 23:59 07:59 15:59 Intake Total 800 / 800 480 / 480 240 / 240 Balance 800 / 800 480 / 480 240 / 240 Intake: Oral 800 / 800 480 / 480 240 / 240 Other: Meal Breakfast Percent of Meal Consumed 95% # Voids 1 2 Weight 130.38 kg Blood Glucose* 292 304 306 Patient Weight 07/24/17 23:59 Weight 130.38 kg Incision: swollen (Incisions open to left hand on all sides. No active drainage but new blood noted to dressings applied yesterday on volar side of hand, no surrounding erythema to incisios, ecchymosis noted to forearm. ROM of fingers and wrist restricted. brisk cap refill, grossly NV intact.) - Labs CBC & BMP: 07/24/17 13:00 07/23/17 04:39 Labs: Abnormal lab results RBC 3.34 M/mcL (3.82-4.97) L 07/24/17 13:00 Hgb 10.3 g/dL (11.5-15.4) L D 07/24/17 13:00 Hct 29.4 % (35.3-44.9) L 07/24/17 13:00 Sodium 131 mEq/L (136-145) L 07/23/17 04:39 Chloride 96 mEq/L (98-107) L 07/23/17 04:39 Glucose 299 mg/dL (70-105) H 07/23/17 04:39 POC Glucose 306 (58-89) H 07/24/17 11:11 - VTE Documentation of Mechanical Device: Intermittent pneumatic compression device Consult Discharge Plan - Plan Referrals: Mona Payton MD [Primary Care Provider] -
[2017-07-24 15:50] LABS: BUN/Creatinine Ratio 18 (6-26); Blood Urea Nitrogen 16 mg/dL (6-20); Calcium 8.9 mg/dL (8.6-10.3); Carbon Dioxide 26 mEq/L (23-29); Chloride 97 mEq/L (98-107); Glucose 330 mg/dL (70-105); Osmolality,Calculated 292 (280-300); Potassium 3.8 mEq/L (3.5-5.1); Sodium 134 mEq/L (136-145); eGFR For African Americans > 60 (> 60); eGFR For Non-African Americans > 60 (> 60)
--- NOTE | 2017-07-24 16:21 | Internal Med Progress Note ---
Date of Encounter: 07/24/17 Time of Encounter: 12:30 - Assessment and plan (1) Compartment syndrome of left hand Current Visit: Yes Status: Acute Assessment and plan: Left hand x-ray shows large amount of swelling but no definite acute osseous abnormality. Orthopedic surgery was consulted, patient underwent urgent left hand decompressive fasciotomies on 07/22/2017; local wound care per Ortho; Plan to return to OR on 07/26/17 for possible wound closure. Pain control with when necessary IV Toradol and oral Percocet. On IV cefazolin per orthopedics. Qualifiers: Encounter type: initial encounter Qualified Code(s): T79.A12A - Traumatic compartment syndrome of left upper extremity, initial encounter (2) CHF (congestive heart failure) Current Visit: Yes Status: Chronic Assessment and plan: Echocardiogram from October 2016 showed preserved ejection fraction, mild left ventricular diastolic dysfunction. Continue beta tootie, diuretic, nitrate, ARB. Qualifiers: Heart failure type: diastolic Heart failure chronicity: chronic Qualified Code(s): I50.32 - Chronic diastolic (congestive) heart failure (3) COPD (chronic obstructive pulmonary disease) Current Visit: Yes Status: Chronic Assessment and plan: Continue when necessary bronchodilators nebulization and supplemental oxygen. Qualifiers: COPD type: emphysema Emphysema type: unspecified Qualified Code(s): J43.9 - Emphysema, unspecified (4) HLD (hyperlipidemia) Current Visit: Yes Status: Chronic Qualifiers: Hyperlipidemia type: unspecified Qualified Code(s): E78.5 - Hyperlipidemia , unspecified (5) HTN (hypertension) Current Visit: Yes Status: Chronic Qualifiers: Hypertension type: essential hypertension Qualified Code(s): I10 - Essential (primary) hypertension (6) CAD (coronary artery disease) Current Visit: Yes Status: Chronic Qualifiers: Coronary Disease-Associated Artery/Lesion type: [place] artery [place] vs. transplanted heart: [place] heart Associated angina: without angina Qualified Code(s): I25.10 - Atherosclerotic heart disease of [place] coronary artery without angina pectoris (7) Hypothyroidism Current Visit: Yes Status: Chronic Qualifiers: Hypothyroidism type: unspecified Qualified Code(s): E03.9 - Hypothyroidism , unspecified (8) Morbid obesity with BMI of 45.0-49.9, adult Current Visit: Yes Status: Chronic (9) Type 2 diabetes mellitus Current Visit: Yes Status: Chronic Assessment and plan: Blood sugars noted to be elevated. Increase basal insulin. Continue Accu-Chek blood glucose monitoring with sliding scale insulin. Diabetic diet. Check hemoglobin A1c. Qualifiers: Diabetes mellitus tank terminal gauger insulin use: with tank terminal gauger use Diabetes mellitus complication status: with unspecified complications Qualified Code(s) : E11.8 - Type 2 diabetes mellitus with unspecified complications; Z79.4 - rn long term care (current) use of insulin - Subjective Interval history: In severe pain due to having her dressing changed to left hand; no fever/chills , nausea, vomiting; - Constitutional Vitals: Temp Pulse Resp BP Pulse Ox 98.6 F 87 18 119/56 93 07/24/17 15:23 07/24/17 15:23 07/24/17 15:23 07/24/17 15:23 07/24/17 15:23 General appearance: Present: mild distress, A&O X 3, answers questions appropriately - Respiratory Respiratory exam: Present: CTAB. Absent: accessory muscle use, rales, rhonchi, wheezes - Cardiovascular Cardiovascular exam: Present: RRR, +S1, +S2, tachycardia. Absent: diastolic murmur, gallop, rubs, systolic murmur - GI/Abdominal GI/Abdominal exam: Present: normal bowel sounds, soft, no peritoneal signs. Absent: distended, tenderness - Extremities Exam Extremities exam: Present: warm, radial pulses palpable and symmetrical. Absent : calf tenderness, cyanotic, pedal edema Additional comments: left hand with diffuse edema, tenderness, restricted ROM in fingers; s/p fasciotomy with open incisions and some bleeding; - Neurological Exam Neurological exam: Present: CN II-XII intact, oriented X3, no focal deficits. Absent: pronater drift, facial droop, speech deficit Internal Medicine: Result - Labs CBC & Chem 7: 07/24/17 13:00 07/24/17 13:00 Labs: Short CBC 07/24/17 Range/Units 13:00 WBC 10.9 (4.3-11.1) K/mcL Hgb 10.3 L D (11.5-15.4) g/dL Hct 29.4 L (35.3-44.9) % Plt Count 242 (140-400) K/mcL Neutrophils # 7.0 (1.6-8.9) K/mcL BMP 07/24/17 13:00 Sodium 134 L Potassium 3.8 Chloride 97 L Carbon Dioxide 26 BUN 16 Creatinine 0.91 Glucose 330 H Calcium 8.9 - VTE Documentation of Mechanical Device: Intermittent pneumatic compression device Consult Discharge Plan - Plan Referrals: Mona Payton MD [Primary Care Provider] -
[2017-07-24] MEDS: Piperacillin/Tazobactam 3.375 GM in 0.9 % Sodium Chloride Mini Bag 100 ML IVPB SCH (16:37)
[2017-07-24] MEDS: Ketorolac 30 MG/ML VIAL IVP PRN ×2 (16:39→23:02)
[2017-07-24] MEDS: Insulin DETEMIR 100 UNIT/ML X5UNITS SQ SCH (21:13)
[2017-07-25] MEDS: Ondansetron 4 MG/2 ML VIAL IVP PRN ×3 (00:09→15:06)
[2017-07-25] MEDS: CeFAZolin Premix DUPLEX 2,000 MG/50 ML BAG IVPB SCH ×2 (00:10→08:20)
[2017-07-25] MEDS: Piperacillin/Tazobactam 3.375 GM in 0.9 % Sodium Chloride Mini Bag 100 ML IVPB SCH ×3 (01:19→16:20)
[2017-07-25] MEDS: *HR* OxyCODONE Immed Rel 5 MG TABLET PO PRN ×5 (03:38→21:26)
[2017-07-25] MEDS: Ketorolac 30 MG/ML VIAL IVP PRN ×2 (05:50→15:05)
[2017-07-25] MEDS ORDERED: *HR* Labetalol 20 MG/4 ML SYRINGE IVP ONE (06:08)
[2017-07-25] MEDS: Multivit/Ca/Min/Fe/FA 1 TAB TABLET PO SCH (08:18)
[2017-07-25] MEDS: Gabapentin 300 MG CAPSULE PO SCH ×3 (08:18→21:26)
[2017-07-25] MEDS: BuPROPion XL (24 HR) 150 MG TABLET PO SCH (08:18)
[2017-07-25] MEDS: Magnesium Oxide 400 MG TABLET PO SCH (08:19)
[2017-07-25] MEDS: Isosorbide MONOnitrate (24 HR) 30 MG TAB.ER.24H PO SCH (08:19)
[2017-07-25] MEDS: Furosemide 20 MG TABLET PO SCH (08:19)
[2017-07-25] MEDS: Aspirin Enteric Coated 81 MG Tablet PO SCH (08:19)
[2017-07-25] MEDS: Insulin LISPRO 300 UNITS/3 ML VIAL SQ SCH ×4 (08:20→21:39)
[2017-07-25] MEDS: Insulin DETEMIR 100 UNIT/ML X5UNITS SQ SCH ×2 (08:21→21:31)
[2017-07-25] MEDS: (Liraglutide [Victoza 2-Pak] 1.2 MG) SQ SCH (08:21)
[2017-07-25 08:22] LABS: BUN/Creatinine Ratio 18 (6-26); Blood Urea Nitrogen 19 mg/dL (6-20); Carbon Dioxide 27 mEq/L (23-29); Chloride 96 mEq/L (98-107); Glucose 309 mg/dL (70-105); Osmolality,Calculated 284 (280-300); Potassium 3.6 mEq/L (3.5-5.1); Sodium 130 mEq/L (136-145); eGFR For African Americans > 60 (> 60); eGFR For Non-African Americans 54 (> 60)
--- NOTE | 2017-07-25 16:43 | Internal Med Progress Note ---
Date of Encounter: 07/25/17 Time of Encounter: 13:50 - Assessment and plan (1) Compartment syndrome of left hand Current Visit: Yes Status: Acute Assessment and plan: Left hand x-ray shows large amount of swelling but no definite acute osseous abnormality. Orthopedic surgery was consulted, patient underwent urgent left hand decompressive fasciotomies on 07/22/2017; local wound care per Ortho; Plan to return to OR on 07/26/17 for possible wound closure. Pain control with when necessary IV Toradol and oral Percocet. On IV cefazolin and Zosyn; case d/w orthopedics, will discontinue Cefazolin. Qualifiers: Encounter type: initial encounter Qualified Code(s): T79.A12A - Traumatic compartment syndrome of left upper extremity, initial encounter (2) CHF (congestive heart failure) Current Visit: Yes Status: Chronic Assessment and plan: Echocardiogram from October 2016 showed preserved ejection fraction, mild left ventricular diastolic dysfunction. Continue beta tootie, diuretic, nitrate, ARB. Qualifiers: Heart failure type: diastolic Heart failure chronicity: chronic Qualified Code(s): I50.32 - Chronic diastolic (congestive) heart failure (3) COPD (chronic obstructive pulmonary disease) Current Visit: Yes Status: Chronic Qualifiers: COPD type: emphysema Emphysema type: unspecified Qualified Code(s): J43.9 - Emphysema, unspecified (4) HLD (hyperlipidemia) Current Visit: Yes Status: Chronic Qualifiers: Hyperlipidemia type: unspecified Qualified Code(s): E78.5 - Hyperlipidemia , unspecified (5) HTN (hypertension) Current Visit: Yes Status: Chronic Qualifiers: Hypertension type: essential hypertension Qualified Code(s): I10 - Essential (primary) hypertension (6) CAD (coronary artery disease) Current Visit: Yes Status: Chronic Qualifiers: Coronary Disease-Associated Artery/Lesion type: [place] artery [place] vs. transplanted heart: [place] heart Associated angina: without angina Qualified Code(s): I25.10 - Atherosclerotic heart disease of [place] coronary artery without angina pectoris (7) Hypothyroidism Current Visit: Yes Status: Chronic Qualifiers: Hypothyroidism type: unspecified Qualified Code(s): E03.9 - Hypothyroidism , unspecified (8) Morbid obesity with BMI of 45.0-49.9, adult Current Visit: Yes Status: Chronic (9) Type 2 diabetes mellitus Current Visit: Yes Status: Chronic Assessment and plan: Blood sugars better controlled. Continue Accu-Chek blood glucose monitoring with basal and sliding scale insulin. Diabetic diet. Check hemoglobin A1c. Qualifiers: Diabetes mellitus parts counterman insulin use: with parts counterman use Diabetes mellitus complication status: with unspecified complications Qualified Code(s) : E11.8 - Type 2 diabetes mellitus with unspecified complications; Z79.4 - half-way (current) use of insulin - Subjective Interval history: Noted to be drowsy today. Due to receiving Ambien earlier this morning along with pain medications. Left hand pain persistent, but improving. No fever, chills, nausea, vomiting. Tolerates oral diet. - Constitutional Vitals: Temp Pulse Resp BP Pulse Ox 98.3 F 108 16 123/65 95 07/25/17 10:26 07/25/17 10:26 07/25/17 10:26 07/25/17 10:26 07/25/17 10:26 General appearance: Present: A&O X 3 (Drowsy), morbidly obese, answers questions appropriately - Respiratory Respiratory exam: Present: CTAB. Absent: accessory muscle use, rales, rhonchi, wheezes - Cardiovascular Cardiovascular exam: Present: RRR, +S1, +S2. Absent: diastolic murmur, gallop, rubs, systolic murmur - Extremities Exam Extremities exam: Present: warm, radial pulses palpable and symmetrical. Absent : calf tenderness, cyanotic, pedal edema Additional comments: Left hand with dry and intact surgical dressing Internal Medicine: Result - Labs CBC & Chem 7: 07/24/17 13:00 07/25/17 06:51 Labs: BMP 07/25/17 06:51 Sodium 130 L Potassium 3.6 Chloride 96 L Carbon Dioxide 27 BUN 19 Creatinine 1.06 Glucose 309 H Calcium 9.0 - VTE Documentation of Mechanical Device: Intermittent pneumatic compression device Consult Discharge Plan - Plan Referrals: Mona Payton MD [Primary Care Provider] -
--- NOTE | 2017-07-25 16:53 | Orthopedics Progress Note ---
Date of Encounter: 07/25/17 Time of Encounter: 13:00 - Assessment and Plan (1) Compartment syndrome of left hand Current Visit: Yes Status: Acute POD#3 s/p - Left hand decompressive fasciotomies 07/22/17 Dressings were changed today. Will continue daily dressing changes. Hospitalist is addressing pain control. Continue abx. Continue elevating hand in stockinette from IV pole. Continue working on ROM of fingers as tolerated. Plan to return to OR on 07/26/17 for possible wound closure or skin grafting as necessary. She may have clear diet for breakfast but NPO after that until surgery. Qualifiers: Encounter type: initial encounter Qualified Code(s): T79.A12A - Traumatic compartment syndrome of left upper extremity, initial encounter Subjective Principal diagnosis: POD#3 s/p - Left hand decompressive fasciotomies 07/22/17 Interval history: Patient doing well today with better pain control but she is drowsy due to taking ambien recently. She has been trying to keep hand elevated hanging from stockinette. She continues to have trouble with moving fingers. admits to tingling to fingers. Denies any new concerns at this time. Objective Vital signs: Vital Signs Temp Pulse Resp BP Pulse Ox 07/25/17 10:26 98.3 F 108 16 123/65 95 07/25/17 07:14 98.5 F 101 16 138/67 94 07/25/17 06:00 98 191/80 07/25/17 03:32 99.6 F 71 18 170/68 93 07/24/17 19:08 98.9 F 95 18 141/52 96 Intake and Output 07/25/17 07/25/17 07/25/17 07:59 15:59 23:59 Intake Total 750 / 750 460 / 460 Output Total 300 / 300 Balance 750 / 750 160 / 160 Intake: IV Fluids 150 / 150 100 / 100 Ancef Premix DUPLEX 2,000 mg In 50 / 50 50 ml @ 100 mls/hr IVPB Q8HR [facility] Rx#:[id number] Zosyn 3.375 GM In 0.9 % Sodium 100 / 100 100 / 100 Chloride (Mini-Bag +) 100 ML @ 25 mls/hr IVPB Q8HR [facility] Rx#: [id number] Oral 600 / 600 360 / 360 Output: Urine 300 / 300 Other: Meal Lunch Percent of Meal Consumed 50% # Voids 0 Weight 130.48 kg Blood Glucose* 301 177 Patient Weight 07/25/17 23:59 Weight 130.48 kg Incision: swollen (dressings are saturated with blood again. swelling improving to palm and dorsal hand, continued moderate swelling to radial and ulnar sides of hand. No active drainage on exam, no surrounding erythema, continued ecchymosis noted to forearm, continued limited AROM of all digits. , brisk cap refill, grossly NV intact. ) - Labs CBC & BMP: 07/24/17 13:00 07/25/17 06:51 Labs: Abnormal lab results RBC 3.34 M/mcL (3.82-4.97) L 07/24/17 13:00 Hgb 10.3 g/dL (11.5-15.4) L D 07/24/17 13:00 Hct 29.4 % (35.3-44.9) L 07/24/17 13:00 Sodium 130 mEq/L (136-145) L 07/25/17 06:51 Chloride 96 mEq/L (98-107) L 07/25/17 06:51 Est GFR (Non-Af Amer) 54 (> 60) L 07/25/17 06:51 Glucose 309 mg/dL (70-105) H 07/25/17 06:51 POC Glucose 177 (58-89) H 07/25/17 11:49 - VTE Documentation of Mechanical Device: Intermittent pneumatic compression device Consult Discharge Plan - Plan Referrals: Mona Payton MD [Primary Care Provider] -
--- NOTE | 2017-07-25 18:02 | Anesthesia Evaluation PreOp ---
Date of Encounter: 07/25/17 Time of Encounter: 18:00 - Past History Planned Operation: Wound Closure Left Decompressive Fasciotomy Cardiac History: CHF (History...currently stable), HTN, Hyperlipidemia, Other ( CAD...on beta tootie) Pulmonary History: COPD (on duonebs) MORTGAGE COLLECTOR History: Denies Any Significant HX Other Medical History: Diabetes Type II, Thyroid (Hypothyroid), Other (Morbid Obesity) Anesthesia History: No Prior Anesthetic Complications, Past Anesthesia ( Decompressive Fasciotomy 07-22-2017) Alcohol Use: none Drug use: none Medications and Allergies Duloxetine HCl [Cymbalta] 60 mg PO DAILY 05/23/15 [History] Lactobacillus Acidophilus [Acidophilus] 1 tab PO DAILY 05/23/15 [History] Magnesium Oxide [Magnesium] 400 mg PO DAILY 05/23/15 [History] Zolpidem [Ambien] 10 mg PO HS 05/23/15 [History] Gabapentin [Neurontin] 600 mg PO TID 01/17/16 [History] Multivitamin [Multivitamins] 1 tab PO DAILY 01/17/16 [History] Aspirin [Lo-Dose Aspirin EC] 81 mg PO DAILY 02/14/16 [History] Atorvastatin [Lipitor] 80 mg PO DAILY 02/14/16 [History] Furosemide [Lasix] 20 mg PO BID 02/14/16 [History] Ondansetron HCl [Zofran] 4 mg PO Q6HR PRN #10 tablet 02/14/16 [Rx] Amitriptyline [Elavil] 25 mg PO HS PRN 07/19/16 [History] Carvedilol [Coreg] 6.25 mg PO DAILY 07/19/16 [History] HYDROcodone/Acet 7.5/325 mg [[place]ley 7.5-325 mg] 1 tab PO TID PRN #30 tablet 07/21 [Rx] Albuterol Sulfate [Ventolin Hfa] 2 puff IH Q4H PRN 10/21/16 [History] BuPROPion XL (24 HR) [Wellbutrin Xl] 150 mg PO DAILY 10/21/16 [History] Isomethepten/Caf/Acetaminophen [Prodrin Caplet] 1 each PO Q8H PRN 10/21/16 [ History] Liraglutide [Victoza 2-Mateusz] 1.2 mg SQ DAILY 10/21/16 [History] Omeprazole [PriLOSEC] 20 mg PO DAILY 10/21/16 [History] Subcutaneous Insulin Pump [T:Slim] 90 - 120 unit MC DAILY 10/21/16 [History] Losartan [Cozaar] 50 mg PO DAILY #60 tablet 10/23/16 [Rx] Promethazine [Phenergan] 25 mg PO Q8HR #12 tablet 04/24/17 [Rx] Levothyroxine Sodium [Synthroid] 200 mcg PO DAILY 07/23/17 [History] 3 Allergy/AdvReac Type Severity Reaction Status Date / Time pregabalin [From Lyrica] Allergy Swelling Verified 04/24/17 11:33 of Lip/Tongue/Throat [place] Allergy Hives Verified 04/24/17 11:33 sumatriptan [From Imitrex] Allergy Headache Verified 04/24/17 11:33 ESME Inhibitors AdvReac Cough Verified 04/24/17 11:33 codeine AdvReac Itching Verified 04/24/17 11:33 dihydroergotamine AdvReac Hallucinati Verified 04/24/17 11:33 ng - Meds/Allergy Pre-op Review Medications Reviewed: Yes Allergies Reviewed: Yes Beta Blockers on Current Med List: Yes (on metoprolol) Anesthesia Results - Labs 07/24/17 13:00 07/25/17 06:51 Laboratory Tests 07/19/16 10/21/16 07/24/17 00:10 13:02 13:00 Hgb 10.3 L D Hct 29.4 L Plt Count 242 PT 12.8 H INR 1.2 APTT 20.0 L Sodium Potassium BUN Creatinine 07/25/17 06:51 Hgb Hct Plt Count PT INR APTT Sodium 130 L Potassium 3.6 BUN 19 Creatinine 1.06 - Imaging EKG: report reviewed (SR) Additional studies: ECHO LVEF 60% Anesthesia Exam O2 Sat Weight 130.48 kg O2 Sat by Pulse Oximetry 96 O2 Sat by Pulse Oximetry 95 O2 Sat by Pulse Oximetry 94 O2 Sat by Pulse Oximetry 93 O2 Sat by Pulse Oximetry 96 Vital Signs Temp Pulse Resp BP Pulse Ox 98.2 F 83 18 182/101 96 07/22/17 11:51 07/22/17 11:51 07/22/17 11:51 07/22/17 11:51 07/22/17 11:51 Height: 5'5 Weight: 287 lbs NPO (# of Hours): MN Pain Scale: 0 - HEENT Pupil (Motor): Pupils equal, EOMI Mallampati: III Teeth: Edentulous Oral Opening: Less than or equal to 3 - MORTGAGE COLLECTOR LOC: Oriented MORTGAGE COLLECTOR Motor: Normal RUE, Normal RLE, Normal LLE, Normal Face, Deficit LUE MORTGAGE COLLECTOR Sensory: Normal: RUE, RLE, LLE, Face, Deficit: LUE (paresthesia) - Cardiac Rhythm: Regular Murmur: None JVD: No Carotid Bruit: No - Pulmonary Breath Sounds: bilateral Clear Respiratory Effort: Symmetrical Anesthesia Assess/Plan ASA Score: 3 (HTN CAD COPD Morbid Obesity) Modified [place] Scale for Level of Consciousness: Cooperative, oriented, and tranquil Anesthetic Plan: General Monitoring Plan: Standard Monitors Recovery Plan: PACU (Discussed GA, agrees to proceed)
[2017-07-26] MEDS: Ketorolac 30 MG/ML VIAL IVP PRN ×3 (00:49→23:23)
[2017-07-26] MEDS: Ondansetron 4 MG/2 ML VIAL IVP PRN ×2 (00:49→10:21)
[2017-07-26] MEDS: Piperacillin/Tazobactam 3.375 GM in 0.9 % Sodium Chloride Mini Bag 100 ML IVPB SCH ×3 (00:53→23:25)
[2017-07-26 07:26] LABS: BUN/Creatinine Ratio 21 (6-26); Blood Urea Nitrogen 19 mg/dL (6-20); Calcium 8.8 mg/dL (8.6-10.3); Carbon Dioxide 28 mEq/L (23-29); Chloride 99 mEq/L (98-107); Glucose 267 mg/dL (70-105); Osmolality,Calculated 288 (280-300); Potassium 3.8 mEq/L (3.5-5.1); Sodium 133 mEq/L (136-145); eGFR For African Americans > 60 (> 60); eGFR For Non-African Americans > 60 (> 60)
[2017-07-26 07:32] LABS: Basophils # 0.1 K/mcL (0.0-0.2); Basophils % 0.4 %; Eosinophils # 0.2 K/mcL (0.0-0.6); Eosinophils % 1.6 %; Hematocrit 28.3 % (35.3-44.9); Hemoglobin 9.6 g/dL (11.5-15.4); Immature Granulocytes % 0.3 % (0-4); Lymphocytes # 2.5 K/mcL (0.6-4.6); Lymphocytes % 18.2 %; Mean Corpuscular HGB Conc 33.9 g/dL (31.6-35.5); Mean Corpuscular Hemoglobin 30.7 pg (28.0-33.3); Mean Corpuscular Volume 90.4 fL (83.0-100.0); Mean Platelet Volume 9.8 fL (9.4-12.4); Monocytes # 0.8 K/mcL (0.0-1.3); Monocytes % 6.1 %; Platelet Count 237 K/mcL (140-400); Red Blood Count 3.13 M/mcL (3.82-4.97); Red Cell Distribution Width 13.2 % (11.5-14.5); Segmented Neutrophils % 73.4 %
[2017-07-26] MEDS: Aspirin Enteric Coated 81 MG Tablet PO SCH (07:35)
[2017-07-26] MEDS: (Liraglutide [Victoza 2-Pak] 1.2 MG) SQ SCH (07:37)
[2017-07-26] MEDS: Insulin LISPRO 300 UNITS/3 ML VIAL SQ SCH ×2 (07:41→12:03)
[2017-07-26] MEDS: Isosorbide MONOnitrate (24 HR) 30 MG TAB.ER.24H PO SCH (07:42)
[2017-07-26] MEDS: Multivit/Ca/Min/Fe/FA 1 TAB TABLET PO SCH (07:43)
[2017-07-26] MEDS: BuPROPion XL (24 HR) 150 MG TABLET PO SCH (07:43)
[2017-07-26] MEDS: Gabapentin 300 MG CAPSULE PO SCH ×4 (07:43→20:59)
[2017-07-26] MEDS: Furosemide 20 MG TABLET PO SCH (07:43)
[2017-07-26] MEDS: Magnesium Oxide 400 MG TABLET PO SCH (07:43)
[2017-07-26] MEDS: Insulin DETEMIR 100 UNIT/ML X5UNITS SQ SCH ×2 (09:05→20:33)
[2017-07-26 09:50] LABS: Estimated Average Glucose 209 mg/dl; Hemoglobin A1C 8.9 %
[2017-07-26] MEDS: *HR* OxyCODONE Immed Rel 5 MG TABLET PO PRN ×2 (10:18→20:59)
[2017-07-26] MEDS ORDERED: Insulin DETEMIR 100 UNIT/ML X5UNITS SQ SCH (11:30)
[2017-07-26] MEDS ORDERED: EPHEDrine 50 MG/ML VIAL ONE (14:39)
[2017-07-26] MEDS ORDERED: Scopolamine Patch 1.5 MG PATCH.TD72 ONE (14:39)
[2017-07-26] MEDS ORDERED: Lidocaine -MPF 2% 2 ML VIAL ONE ×2 (14:42→14:43)
[2017-07-26] MEDS ORDERED: *HR* FentaNYL (PF) 100 MCG/2 ML VIAL ONE (14:43)
[2017-07-26] MEDS ORDERED: *HR* Succinylcholine 200 MG/10 ML VIAL IVP ONE (14:43)
[2017-07-26] MEDS ORDERED: *HR* Midazolam HCl 2 MG/2 ML VIAL ONE (14:43)
[2017-07-26] MEDS ORDERED: *HR* Propofol 200 MG/20 ML VIAL IVP ONE (14:44)
[2017-07-26] MEDS ORDERED: Lidocaine -MPF 4% 5 ML AMPUL ONE (14:47)
[2017-07-26] MEDS ORDERED: Bacitracin/PolymyxinB OINT 14.17 GM TUBE TP ONE (15:13)
[2017-07-26] MEDS ORDERED: Dexamethasone 4 MG/ML VIAL ONE (15:55)
[2017-07-26] MEDS ORDERED: *HR* PHENYLEPHRINE 1,000 MCG/10 ML SYRINGE IVP ONE (15:55)
[2017-07-26] MEDS ORDERED: *HR* Phenylephrine 10 MG/ML VIAL ONE (16:26)
--- NOTE | 2017-07-26 16:51 | Internal Med Progress Note ---
Date of Encounter: 07/26/17 Time of Encounter: 11:50 - Assessment and plan (1) Compartment syndrome of left hand Current Visit: Yes Status: Acute Assessment and plan: Left hand x-ray shows large amount of swelling but no definite acute osseous abnormality. Orthopedic surgery was consulted, patient underwent urgent left hand decompressive fasciotomies on 07/22/2017; local wound care per Ortho; hemoglobin dropped to 9.6 today, from 11.9. Continue to monitor. Plan to return to OR today for possible wound closure and skin grafting as necessary. Pain control with when necessary IV Toradol and oral Percocet. On IV Zosyn; Qualifiers: Encounter type: initial encounter Qualified Code(s): T79.A12A - Traumatic compartment syndrome of left upper extremity, initial encounter (2) CHF (congestive heart failure) Current Visit: Yes Status: Chronic Assessment and plan: Echocardiogram from October 2016 showed preserved ejection fraction, mild left ventricular diastolic dysfunction. Continue beta tootie, diuretic, nitrate, ARB. Qualifiers: Heart failure type: diastolic Heart failure chronicity: chronic Qualified Code(s): I50.32 - Chronic diastolic (congestive) heart failure (3) COPD (chronic obstructive pulmonary disease) Current Visit: Yes Status: Chronic Assessment and plan: Continue when necessary bronchodilators nebulization and supplemental oxygen. Qualifiers: COPD type: emphysema Emphysema type: unspecified Qualified Code(s): J43.9 - Emphysema, unspecified (4) HLD (hyperlipidemia) Current Visit: Yes Status: Chronic Qualifiers: Hyperlipidemia type: unspecified Qualified Code(s): E78.5 - Hyperlipidemia , unspecified (5) HTN (hypertension) Current Visit: Yes Status: Chronic Qualifiers: Hypertension type: essential hypertension Qualified Code(s): I10 - Essential (primary) hypertension (6) CAD (coronary artery disease) Current Visit: Yes Status: Chronic Qualifiers: Coronary Disease-Associated Artery/Lesion type: [place] artery [place] vs. transplanted heart: [place] heart Associated angina: without angina Qualified Code(s): I25.10 - Atherosclerotic heart disease of [place] coronary artery without angina pectoris (7) Hypothyroidism Current Visit: Yes Status: Chronic Qualifiers: Hypothyroidism type: unspecified Qualified Code(s): E03.9 - Hypothyroidism , unspecified (8) Morbid obesity with BMI of 45.0-49.9, adult Current Visit: Yes Status: Chronic (9) Type 2 diabetes mellitus Current Visit: Yes Status: Chronic Assessment and plan: Blood sugars continue to be elevated. Patient is on insulin pump at home. Increase basal insulin. Continue Accu-Chek blood glucose monitoring with basal and sliding scale insulin. Diabetic diet. Hemoglobin A1c noted to be 8.9%, which is patient's baseline according to her. 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 Left hand pain persistent, but improving. No fever, chills, nausea, vomiting. Awaiting OR today; - Constitutional Vitals: Temp Pulse Resp BP Pulse Ox 98.4 F 77 14 122/51 98 07/26/17 14:07 07/26/17 14:07 07/26/17 14:07 07/26/17 14:07 07/26/17 14:07 General appearance: Present: A&O X 3 (Drowsy), morbidly obese, answers questions appropriately - Respiratory Respiratory exam: Present: CTAB. Absent: accessory muscle use, rales, rhonchi, wheezes - Cardiovascular Cardiovascular exam: Present: RRR, +S1, +S2. Absent: diastolic murmur, gallop, rubs, systolic murmur - GI/Abdominal GI/Abdominal exam: Present: normal bowel sounds, soft (obese), no peritoneal signs. Absent: distended, tenderness - Extremities Exam Extremities exam: Present: pedal edema (trace), warm, radial pulses palpable and symmetrical. Absent: calf tenderness, cyanotic Additional comments: left hand in surgical dressing, in elevation from pole Internal Medicine: Result - Labs CBC & Chem 7: 07/26/17 06:54 07/26/17 06:54 Labs: Short CBC 07/26/17 Range/Units 06:54 WBC 13.6 H (4.3-11.1) K/mcL Hgb 9.6 L (11.5-15.4) g/dL Hct 28.3 L (35.3-44.9) % Plt Count 237 (140-400) K/mcL Neutrophils # 10.0 H (1.6-8.9) K/mcL BMP 07/26/17 06:54 Sodium 133 L Potassium 3.8 Chloride 99 Carbon Dioxide 28 BUN 19 Creatinine 0.92 Glucose 267 H Calcium 8.8 - VTE Documentation of Mechanical Device: Intermittent pneumatic compression device Consult Discharge Plan - Plan Referrals: Mona Payton MD [Primary Care Provider] -
[2017-07-26] MEDS ORDERED: Albuterol 2.5 MG/3 ML NEBULIZER ONE (17:21)
[2017-07-26] MEDS ORDERED: Albuterol 2.5 MG/3 ML NEBULIZER IH ONE (17:28)
[2017-07-26] MEDS ORDERED: *HR* OxyCODONE Immed Rel 5 MG TABLET PO PRN (17:46)
[2017-07-26] MEDS ORDERED: Acetaminophen/Butalbital/CaffeineTABLET PO PRN (17:46)
[2017-07-26] MEDS ORDERED: ISOMETHEPTENE PO PRN (17:46)
[2017-07-26] MEDS ORDERED: Naloxone 0.4 MG/ML INJ IVP PRN (17:46)
[2017-07-26] MEDS ORDERED: CAFFEINE PO PRN (17:46)
[2017-07-26] MEDS ORDERED: Dextrose Gel 15 GM/37.5 ML TUBE PO PRN ×2 (17:46)
[2017-07-26] MEDS ORDERED: ACETAMINOPHEN PO PRN (17:46)
[2017-07-26] MEDS ORDERED: *HR* Dextrose 50 % in Water (Syg) 50 ML SYRINGE IVP PRN (17:46)
[2017-07-26] MEDS ORDERED: D5% in Water 1,000 ML IVC PRN (17:46)
--- NOTE | 2017-07-26 17:48 | Anesthesia Evaluation Post Op ---
Date of Encounter: 07/26/17 Time of Encounter: 17:48 - Vital Signs Vital Signs: Vital Signs/O2 Sat, Most Current Temp Pulse Resp BP Pulse Ox 99.2 F 83 16 158/70 97 07/26/17 17:20 07/26/17 17:40 07/26/17 17:40 07/26/17 17:40 07/26/17 17:40 - Lungs Lungs: Clear Ascult./Percussion - Airway Airway: Non-obstructed - Cardiovascular Regular Rate - Mental Status Mental Status: Alert & Oriented, Answers Appropriately - Pain Pain Scale: 0 Pain Scale used: Numeric (1 - 10) - Nausea Vomiting Nausea Vomiting: Not Present - Hydration Hydration: Ice chips, Has not voided - Discharge PostOp Status: Transfer Patient to floor
[2017-07-26] MEDS ORDERED: Insulin LISPRO 300 UNITS/3 ML VIAL SQ SCH (21:00)
[2017-07-27] MEDS: *HR* OxyCODONE Immed Rel 5 MG TABLET PO PRN ×3 (03:10→12:35)
[2017-07-27] MEDS: Ondansetron 4 MG/2 ML VIAL IVP PRN ×2 (03:12→12:40)
[2017-07-27] MEDS: Gabapentin 300 MG CAPSULE PO SCH (07:49)
[2017-07-27] MEDS: Piperacillin/Tazobactam 3.375 GM in 0.9 % Sodium Chloride Mini Bag 100 ML IVPB SCH (07:50)
[2017-07-27] MEDS: Insulin LISPRO 300 UNITS/3 ML VIAL SQ SCH ×4 (07:51→12:14)
[2017-07-27] MEDS: Insulin DETEMIR 100 UNIT/ML X5UNITS SQ SCH (08:05)
--- NOTE | 2017-07-27 08:41 | Operative Note ---
Date of procedure: 07/26/17 Pre-op diagnosis: Left hand open wounds status post fasciotomies for compartment syndrome Post-op diagnosis: same Procedure: Left hand palmar wound closure, simple Left hand preparation of wound bed and application of acellular graft 5 cm x 1.5 cm - thenar eminence; 4 cm x 2 cm - hyperthenar eminence Monitoring of compartment pressures x 4 Anesthesia: GETA Surgeon: Kyaw Abarca Was there an assistant director of residence life present: Yes Electric Vehicle Electrician: Stephanie Rizo Estimated blood loss (cc): 10 Tourniquet Time (Minutes): 0 Specimen: 0 Condition: stable Disposition: PACU Procedure in Detail: Indications: Patient is a 51-year-old woman who underwent left hand fasciotomies for compartment syndrome, 4 days ago. The swelling is coming down and the patient is being taken back to operating room for possible wound closure or grafting. Procedure: The patient received IV antibiotics in the holding area, was brought into the operating room and placed on the OR table in supine position with the affected left upper extremity on a hand table. A sign in was performed. The patient underwent general anesthesia, a tourniquet was placed on the arm close to the axilla. The left upper extremity was prepped and draped in usual sterile fashion. A timeout was performed. The open wounds were copiously irrigated with normal saline and aggressively debrided with a Ray-Aviva while irrigating. Granulation tissue is removed. Making show healthy clean tissue was exposed. The muscle appeared to be in good condition with no signs of necrosis. The patient's hand felt very soft, and it seemed that a complete closure could be performed. The dorsal incision was closed with 3-0 nylon horizontal mattress and simple sutures. The 5 cm long wound on the radial side of the thenar eminence was closed with 4-0 nylon mattress and simple sutures. The 4 cm long opening in the distal palm was also closed with 3-0 nylon vertical mattress and simple sutures. The skin of the hyperthenar eminence, seemed to tight for primary closure. The Bench manometer was opened. Pressure readings obtained at the hyperthenar muscle which measured 6 mm, thenar muscles, measured 34 mm Hg, the abductor space measured 26 mmHg and various interosseous spaces mention of a 26/27 range. The sutures removed from the central region dorsum of the hand. Sutures also removed over the thenar eminence. I bluntly spread once again various compartments including the adductor. Compartment pressures were checked again, and going down to the 6 to 7 mmHg range. At the start of the case, the patient had blood drawn which was then spun down using the [employer] PRP system. The 2 components were then mixed with appropriate regions. The PRP was injected along the exposed muscle. The fibrin rich component was then sprayed over the surfaces of the exposed wounds including the dorsum of her hand, for hemostasis. We had a 5 cm x 5 cm Integra meshed bilaminar wound matrix dressing soaking in saline. This was split down the midline. One graft was then applied over the thenar bed, with the silicone side up. This wound covered measured 5 cm long by 1.5 cm wide It was cut to shape. And then sutured in with 5-0 nylon simple sutures. The second piece was then applied to the hypothenar edge wound which measured 4 cm long by 2 cm wide. This was cut to shape and sewn to the prepared bed also with a 5-0 nylon simple sutures. Sterile dressings were applied with with Acticoat followed by gauze soaked in sterile water, over the grafted areas. I placed 2 horizontal sutures in the center of the dorsal wound, that were not tied down. Remaining sterile dressings were then applied. The patient was extubated and taken to the recovery room in stable condition. The patient will be seen at postoperative week # 1 for sterile dressing changes with Acticoat. The swelling on the dorsum should be down in one week's time, and horizontal mattress sutures can be tied off.
[2017-07-27] MEDS ORDERED: Furosemide 20 MG TABLET PO SCH (09:00)
[2017-07-27] MEDS ORDERED: Multivit/Ca/Min/Fe/FA 1 TAB TABLET PO SCH (09:00)
[2017-07-27] MEDS ORDERED: BuPROPion XL (24 HR) 150 MG TABLET PO SCH (09:00)
[2017-07-27] MEDS ORDERED: Magnesium Oxide 400 MG TABLET PO SCH (09:00)
[2017-07-27] MEDS ORDERED: Liraglutide [Victoza 2-Pak] 1.2 MG SQ SCH (09:00)
[2017-07-27] MEDS ORDERED: Aspirin Enteric Coated 81 MG Tablet PO SCH (09:00)
[2017-07-27] MEDS ORDERED: Isosorbide MONOnitrate (24 HR) 30 MG TAB.ER.24H PO SCH (09:00)
[2017-07-27 11:14] VITALS: BP 136/65
[2017-07-27] MEDS: Ketorolac 30 MG/ML VIAL IVP PRN (11:16)
--- NOTE | 2017-07-27 13:10 | Discharge Summary ---
Date of Encounter: 07/27/17 Time of Encounter: 13:08 - Discharge Diagnosis (1) Compartment syndrome of left hand Priority: Primary Status: Acute Qualifiers: Encounter type: initial encounter Qualified Code(s): T79.A12A - Traumatic compartment syndrome of left upper extremity, initial encounter (2) CHF (congestive heart failure) Priority: Secondary Status: Chronic Qualifiers: Heart failure type: diastolic Heart failure chronicity: chronic Qualified Code(s): I50.32 - Chronic diastolic (congestive) heart failure (3) COPD (chronic obstructive pulmonary disease) Priority: Secondary Status: Chronic Qualifiers: COPD type: emphysema Emphysema type: unspecified Qualified Code(s): J43.9 - Emphysema, unspecified (4) HLD (hyperlipidemia) Priority: Secondary Status: Chronic Qualifiers: Hyperlipidemia type: unspecified Qualified Code(s): E78.5 - Hyperlipidemia , unspecified (5) HTN (hypertension) Priority: Secondary Status: Chronic Qualifiers: Hypertension type: essential hypertension Qualified Code(s): I10 - Essential (primary) hypertension (6) CAD (coronary artery disease) Priority: Secondary Status: Chronic Qualifiers: Coronary Disease-Associated Artery/Lesion type: [place] artery [place] vs. transplanted heart: [place] heart Associated angina: without angina Qualified Code(s): I25.10 - Atherosclerotic heart disease of [place] coronary artery without angina pectoris (7) Hypothyroidism Priority: Secondary Status: Chronic Qualifiers: Hypothyroidism type: unspecified Qualified Code(s): E03.9 - Hypothyroidism , unspecified (8) Morbid obesity with BMI of 45.0-49.9, adult Priority: Secondary Status: Chronic (9) Type 2 diabetes mellitus Priority: Secondary Status: Chronic Qualifiers: Diabetes mellitus fci insulin use: with fci use Diabetes mellitus complication status: with hyperglycemia Qualified Code(s): E11.65 - Type 2 diabetes mellitus with hyperglycemia; Z79.4 - met[place] (current) use of insulin; Z79.4 - meterman (current) use of insulin; Z79.4 - meterman (current ) use of insulin; Z79.4 - [facility] (current) use of insulin Hospital course: Ms. Andrade is a 51 year old female with the above medical problems, who was admitted with left hand pain and swelling following a mechanical fall. Left wrist x-ray showed a large amount of swelling with no definite osseous abnormality. She was noted to have extremely elevated compartment pressures in left hand, orthopedic surgery was consulted and was taken to the emergency room for emergent left hand decompressive fasciotomies. She was started on IV Zosyn per orthopedics due to mild purulence in the postoperative wound. She subsequently underwent left hand wound closure and application of 2 acellular grafts and thenar and hyperthenar eminence. Patient was noted to have uncontrolled blood sugars, basal bolus insulin regimen was being titrated. She is noted to be on insulin pump at home, reports that her blood sugars at home running 300s to 400s, she follows with endocrinology, baseline hemoglobin A1c is 8.9%, which is consistent with her current A1c level. Patient is currently medically stable for discharge with outpatient orthopedics follow-up. Discharge discussed with: patient, family - Time Spent with Patient Total time spent providing and/or coordinating discharge services: Greater than 30 minutes (45 min) - Discharge Medications Prescriptions: Ondansetron HCl [Zofran] 4 mg PO Q6HR PRN #10 tablet PRN Reason: Nausea Amoxicillin/Clavulanate [Augmentin] 875 mg PO BIDWM #10 tablet Isosorbide MONOnitrate (24 HR) [Imdur] 30 mg PO DAILY #30 tab.er.24h OxyCODONE Immed Rel [Roxicodone 5 MG] 10 mg PO Q6H PRN 7 Days #20 tablet PRN Reason: Severe Pain Home Medications: Duloxetine HCl [Cymbalta] 60 mg PO DAILY 05/23/15 [History] Lactobacillus Acidophilus [Acidophilus] 1 tab PO DAILY 05/23/15 [History] Magnesium Oxide [Magnesium] 400 mg PO DAILY 05/23/15 [History] Zolpidem [Ambien] 10 mg PO HS 05/23/15 [History] Gabapentin [Neurontin] 600 mg PO TID 01/17/16 [History] Multivitamin [Multivitamins] 1 tab PO DAILY 01/17/16 [History] Aspirin [Lo-Dose Aspirin EC] 81 mg PO DAILY 02/14/16 [History] Atorvastatin [Lipitor] 80 mg PO DAILY 02/14/16 [History] Furosemide [Lasix] 20 mg PO BID 02/14/16 [History] Amitriptyline [Elavil] 25 mg PO HS PRN 07/19/16 [History] Carvedilol [Coreg] 6.25 mg PO DAILY 07/19/16 [History] Albuterol Sulfate [Ventolin Hfa] 2 puff IH Q4H PRN 10/21/16 [History] BuPROPion XL (24 HR) [Wellbutrin Xl] 150 mg PO DAILY 10/21/16 [History] Isomethepten/Caf/Acetaminophen [Prodrin Caplet] 1 each PO Q8H PRN 10/21/16 [ History] Liraglutide [Victoza 2-Mateusz] 1.2 mg SQ DAILY 10/21/16 [History] Omeprazole [PriLOSEC] 20 mg PO DAILY 10/21/16 [History] Subcutaneous Insulin Pump [T:Slim] 90 - 120 unit MC DAILY 10/21/16 [History] Losartan [Cozaar] 50 mg PO DAILY #60 tablet 10/23/16 [Rx] Promethazine [Phenergan] 25 mg PO Q8HR #12 tablet 04/24/17 [Rx] Levothyroxine Sodium [Synthroid] 200 mcg PO DAILY 07/23/17 [History] Amoxicillin/Clavulanate [Augmentin] 875 mg PO BIDWM #10 tablet 07/27/17 [Rx] Isosorbide MONOnitrate (24 HR) [Imdur] 30 mg PO DAILY #30 tab.er.24h 07/27/17 [ Rx] Ondansetron HCl [Zofran] 4 mg PO Q6HR PRN #10 tablet 07/27/17 [Rx] OxyCODONE Immed Rel [Roxicodone 5 MG] 10 mg PO Q6H PRN 7 Days #20 tablet [Rx] Allergies/Adverse Reactions: 3 Allergy/AdvReac Type Severity Reaction Status Date / Time pregabalin [From Lyrica] Allergy Swelling Verified 04/24/17 11:33 of Lip/Tongue/Throat [place] Allergy Hives Verified 04/24/17 11:33 sumatriptan [From Imitrex] Allergy Headache Verified 04/24/17 11:33 ESME Inhibitors AdvReac Cough Verified 04/24/17 11:33 codeine AdvReac Itching Verified 04/24/17 11:33 dihydroergotamine AdvReac Hallucinati Verified 04/24/17 11:33 ng Date of admission: 07/22/17 20:09 Primary care physician: Mona Payton MD Consults: 07/27/17 11:27 Consult to Sales Representative Facility Services [CONS] Routine Reason for Consult: Patient states she will be discharged home with IV abx Discharging clinician: Pamela Mckenzie Anticipated date of discharge: 07/27/17 - Constitutional Vitals: Temp Pulse Resp BP Pulse Ox 97.9 F 72 18 136/65 95 07/27/17 11:13 07/27/17 11:13 07/27/17 11:13 07/27/17 11:13 07/27/17 11:13 General appearance: Present: A&O X 3, morbidly obese, answers questions appropriately - Cardiovascular Cardiovascular exam: Present: RRR, +S1, +S2. Absent: diastolic murmur, gallop, rubs, systolic murmur - Patient Status Disposition: Home, Self-Care Condition: Fair Functional capacity at discharge: independent ambulation Overall status at discharge: patient is progressing back to baseline - Discharge Instructions Follow Up With: Stephanie Rizo PAC [Physician [place]] - 08/01/17 9:00 am Mona Payton MD [Primary Care Provider] - Additional Instructions: Follow-up appointments: If there is not an appointment listed below, please call your physician and schedule a follow-up appointment. If you have congestive heart failure and your symptoms return, make an appointment with your physician. Medication List: Carry an up to date list of medications you are taking at all time. We have given you an updated medication list including any new medications that you have been prescribed. Please provide that list to your primary provider Symptoms: If your condition changes or you experience any of the following symptoms, notify your physician immediately: Unusual or worsening pain, fever, persistent nausea and vomiting, bleeding, increase in swelling (especially in your legs), sudden weight gain, extreme dizziness, chest pain, increased drainage or redness from a wound or incision. Go to the emergency department if you experience a problem with breathing. Weights: If you have a history of swelling or shortness of breath, weigh yourself daily and notify your physician if you have a weight gain of two or more pounds in one day or 5 or more pounds in a week. If you experience any of the warning signs for stroke: Sudden numbness or weakness of the face, arm or leg; especially on one side of the body, sudden confusion, trouble speaking or understanding, sudden trouble seeing in one or both eyes, sudden trouble walking, dizziness, loss of balance or coordination, sudden sever headache with no cause; Call 911 or go to the emergency room. Stroke is a medical emergency. Some risk factors for stroke: Age, cigarette smoking, diabetes, excessive alcohol consumption, family history , high blood pressure, overweight, physical inactivity, prior stroke, heart attack, diagnosis of carotid artery stenosis or other artery disease. If you smoke, STOP: Smoking or tobacco use significantly increases your risk of heart and lung disease. Your chance of disease greatly increases if you continue to smoke. For more information, call the [employer] tobacco quit line for smoking cessation QUIT-NOW ( ) - Diet and Activity Activity: resume usual activities as tolerated (left hand restrictions per Orthopedics), wear oxygen at all times Diet: diabetic diet, low fat, low cholesterol, low salt diet - VTE Documentation of Mechanical Device: Intermittent pneumatic compression device
--- NOTE | 2017-07-27 13:23 | Orthopedics Progress Note ---
Date of Encounter: 07/27/17 Time of Encounter: 12:40 - Assessment and Plan (1) Compartment syndrome of left hand Current Visit: Yes Status: Acute POD#4 s/p - Left hand decompressive fasciotomies 07/22/17 POD#1 s/p - Left hand wound closure with skin grafting 07/26/17 LEAVE DRESSINGS INTACT until office follow up in 1 week. Hospitalist is addressing pain control. Recommend PO Bactrim DS upon discharge. Continue elevating hand. Continue working on ROM of fingers as tolerated. Will follow up with Stephanie Rizo PA-C in [facility] office on 08/01/17 at 9:00 am. Qualifiers: Encounter type: initial encounter Qualified Code(s): T79.A12A - Traumatic compartment syndrome of left upper extremity, initial encounter Subjective Principal diagnosis: POD# s/p - Left hand wound closure with skin grafting Interval history: Patient doing well today with pain well controlled at this time. She has been trying to keep hand elevated. She continues to have trouble with moving fingers but working on it. admits to continued tingling to fingers. Denies any new concerns at this time. Objective Vital signs: Vital Signs Temp Pulse Resp BP Pulse Ox 07/27/17 11:13 97.9 F 72 18 136/65 95 07/27/17 07:45 94 07/27/17 06:47 98.0 F 69 18 114/63 97 07/27/17 03:04 98.4 F 78 18 139/69 98 07/26/17 22:49 98.9 F 88 18 116/65 98 07/26/17 20:25 99.4 F 87 17 166/73 97 07/26/17 19:30 99.1 F 85 17 155/76 97 07/26/17 18:57 98.9 F 84 12 153/75 97 07/26/17 18:12 98.6 F 86 12 166/75 96 07/26/17 17:50 99.4 F 88 18 162/70 98 07/26/17 17:40 83 16 158/70 97 07/26/17 17:30 84 13 151/73 96 07/26/17 17:20 99.2 F 89 13 134/73 98 07/26/17 14:07 98.4 F 77 14 122/51 98 Intake and Output 07/26/17 07/27/17 07/27/17 23:59 07:59 15:59 Intake Total 50 / 50 100 / 100 100 / 100 Output Total Balance 40 / 40 100 / 100 100 / 100 Intake: IV Fluids 100 / 100 100 / 100 Zosyn 3.375 GM In 0.9 % Sodium 100 / 100 100 / 100 Chloride (Mini-Bag +) 100 ML @ 25 mls/hr IVPB Q8HR [facility] Rx#: [id number] Oral 50 / 50 0 / 0 Output: Estimated Blood Loss Other: # Voids 1 1 Blood Glucose* [phone] Incision: clean and dry (dressings c/d/i with no visible drainage. moderate ecchymosis noted to forearm, mild warmth toward wrist but no warmth toward elbow , improving ROM of fingers. brisk cap refill, grossly NV intact) - Labs CBC & BMP: 07/26/17 06:54 07/26/17 06:54 Labs: Abnormal lab results WBC 13.6 K/mcL (4.3-11.1) H 07/26/17 06:54 RBC 3.13 M/mcL (3.82-4.97) L 07/26/17 06:54 Hgb 9.6 g/dL (11.5-15.4) L 07/26/17 06:54 Hct 28.3 % (35.3-44.9) L 07/26/17 06:54 Neutrophils # 10.0 K/mcL (1.6-8.9) H 07/26/17 06:54 Sodium 133 mEq/L (136-145) L 07/26/17 06:54 Glucose 267 mg/dL (70-105) H 07/26/17 06:54 POC Glucose 348 (58-89) H 07/27/17 11:12 Hemoglobin A1c 8.9 % (-5.6) H 07/26/17 06:54 - VTE Documentation of Mechanical Device: Intermittent pneumatic compression device Consult Discharge Plan - Plan Referrals: Stephanie Rizo, PAC [Physician [place]] - 08/01/17 9:00 am Mona Payton MD [Primary Care Provider] - Prescriptions: Ondansetron HCl [Zofran] 4 mg PO Q6HR PRN #10 tablet PRN Reason: Nausea Amoxicillin/Clavulanate [Augmentin] 875 mg PO BIDWM #10 tablet Isosorbide MONOnitrate (24 HR) [Imdur] 30 mg PO DAILY #30 tab.er.24h OxyCODONE Immed Rel [Roxicodone 5 MG] 10 mg PO Q6H PRN 7 Days #20 tablet PRN Reason: Severe Pain
[2017-07-27] MEDS ORDERED: FLUARIX QUAD 2017-18 36MOS UP/PF 0.5 ML SYRINGE IM ONE (14:03)
== END 2017-07-27 15:06 | disposition home or self-care (01) | DRG 316 ==
LOC: EMEROO 11:40 → 3NENU 11:40 → SUATTDRO 20:09 → 3NENU 07-26 01:49
PROVIDERS: ADMIT Student in an Organized Health Care Education/Training Program; ATTEND Internal Medicine
PROC: ORTFASC (2017-07-22 15:30)

== ENCOUNTER 2019-06-10 14:41 | Inpatient (IN) ==
[2019-06-10] MEDS ORDERED: Isovue-370 500 ML BOTTLE IVP ONE (14:59)
[2019-06-10 15:23] LABS: Prothrombin Time 11.8 Seconds (9.4-12.1)
[2019-06-10 15:26] LABS: Basophils # 0.1 K/mcL (0.0-0.2); Basophils % 0.8 %; Eosinophils # 0.2 K/mcL (0.0-0.6); Hematocrit 39.5 % (35.3-44.9); Hemoglobin 13.9 g/dL (11.5-15.4); Immature Granulocytes % 0.3 % (0-4); Lymphocytes # 2.1 K/mcL (0.6-4.6); Lymphocytes % 27.6 %; Mean Corpuscular HGB Conc 35.2 g/dL (31.6-35.5); Mean Corpuscular Hemoglobin 31.7 pg (28.0-33.3); Mean Platelet Volume 10.3 fL (9.4-12.4); Monocytes # 0.6 K/mcL (0.0-1.3); Monocytes % 8.1 %; Neutrophils # 4.5 K/mcL (1.6-8.9); Platelet Count 203 K/mcL (140-400); Red Blood Count 4.39 M/mcL (3.82-4.97); Red Cell Distribution Width 12.5 % (11.5-14.5); Segmented Neutrophils % 60.2 %; White Blood Count 7.4 K/mcL (4.3-11.1)
[2019-06-10] MEDS ORDERED: Ketorolac 30 MG/ML VIAL IVP ONE (15:42)
[2019-06-10] MEDS ORDERED: Prochlorperazine 10 MG/2 ML VIAL IVP ONE (15:43)
[2019-06-10 15:46] LABS: Alanine Aminotransferase 18 Units/L (7-52); Albumin/Globulin Ratio 1.3 (1.1-2.2); Alkaline Phosphatase 126 Units/L (34-104); Aspartate Amino Transferase 21 Units/L (13-39); BUN/Creatinine Ratio 17 (6-26); Bilirubin,Total 0.5 mg/dL (0.3-1.0); Blood Urea Nitrogen 16 mg/dL (6-20); Calcium 9.3 mg/dL (8.6-10.3); Carbon Dioxide 26 mEq/L (23-29); Chloride 104 mEq/L (98-107); Globulin 3.2 g/dL (2.4-3.5); Glucose 77 mg/dL (70-105); Osmolality,Calculated 288 (280-300); Potassium 4.4 mEq/L (3.5-5.1); Sodium 139 mEq/L (136-145); Total Protein 7.2 g/dL (6.4-8.9); Troponin I < 0.03 ng/mL (< 0.04); eGFR For African Americans > 60 (> 60); eGFR For Non-African Americans > 60 (> 60)
[2019-06-10] MEDS ORDERED: Acetaminophen 325 MG TABLET PO ONE (18:35)
[2019-06-10] MEDS ORDERED: Aspirin 81 MG TAB.CHEW PO ONE (18:42)
[2019-06-11] MEDS: Acetaminophen 325 MG TABLET PO PRN ×2 (00:24→21:39)
[2019-06-11] MEDS ORDERED: Dextrose Gel 15 GM/37.5 ML TUBE PO PRN ×2 (01:04)
[2019-06-11] MEDS ORDERED: *HR* Dextrose 50 % in Water (Syg) 50 ML SYRINGE IVP PRN (01:04)
[2019-06-11] MEDS ORDERED: Naloxone 0.4 MG/ML INJ IVP PRN (01:04)
[2019-06-11] MEDS ORDERED: Aspirin Enteric Coated 81 MG Tablet PO STA (01:04)
[2019-06-11] MEDS ORDERED: D5% in Water 1,000 ML IVC PRN (01:04)
[2019-06-11] MEDS ORDERED: Ondansetron ODT 4 MG TAB.RAPDIS PO PRN (01:08)
[2019-06-11] MEDS ORDERED: *HR* Labetalol 20 MG/4 ML SYRINGE IVP PRN (01:18)
[2019-06-11 02:19] LABS: INR 1.1; Prothrombin Time 12.4 Seconds (9.4-12.1)
[2019-06-11 02:21] LABS: Basophils % 0.5 %; Eosinophils # 0.2 K/mcL (0.0-0.6); Eosinophils % 3.2 %; Hematocrit 38.1 % (35.3-44.9); Hemoglobin 13.3 g/dL (11.5-15.4); Immature Granulocytes % 0.3 % (0-4); Lymphocytes # 2.1 K/mcL (0.6-4.6); Lymphocytes % 31.2 %; Mean Corpuscular HGB Conc 34.9 g/dL (31.6-35.5); Mean Corpuscular Hemoglobin 31.7 pg (28.0-33.3); Mean Corpuscular Volume 90.9 fL (83.0-100.0); Mean Platelet Volume 10.2 fL (9.4-12.4); Monocytes # 0.4 K/mcL (0.0-1.3); Monocytes % 6.3 %; Neutrophils # 3.9 K/mcL (1.6-8.9); Platelet Count 246 K/mcL (140-400); Red Blood Count 4.19 M/mcL (3.82-4.97); Red Cell Distribution Width 12.8 % (11.5-14.5); Segmented Neutrophils % 58.5 %; White Blood Count 6.6 K/mcL (4.3-11.1)
[2019-06-11] MEDS: carvediloL 6.25 MG TABLET PO SCH ×3 (02:24→17:52)
[2019-06-11 02:37] LABS: Alanine Aminotransferase 20 Units/L (7-52); Albumin 3.6 g/dL (3.5-5.7); Albumin/Globulin Ratio 1.2 (1.1-2.2); Alkaline Phosphatase 123 Units/L (34-104); Aspartate Amino Transferase 18 Units/L (13-39); BUN/Creatinine Ratio 15 (6-26); Bilirubin,Total 0.5 mg/dL (0.3-1.0); Blood Urea Nitrogen 16 mg/dL (6-20); Calcium 9.1 mg/dL (8.6-10.3); Carbon Dioxide 28 mEq/L (23-29); Chloride 103 mEq/L (98-107); Chol/HDL Ratio 6.2 (0-4.9); Cholesterol 223 mg/dL (< 200); Globulin 3.1 g/dL (2.4-3.5); Glucose 168 mg/dL (70-105); HDL Cholesterol 36 mg/dL (40-59); LDL Cholesterol,Calculated 155 mg/dL (0-99); Osmolality,Calculated 293 (280-300); Phosphorous 4.8 mg/dL (2.7-4.5); Sodium 139 mEq/L (136-145); Total Protein 6.7 g/dL (6.4-8.9); Triglycerides 160 mg/dL (< 150); eGFR For African Americans > 60 (> 60); eGFR For Non-African Americans 54 (> 60)
[2019-06-11] MEDS ORDERED: Acetaminophen/Butalbital/CaffeineTABLET PO ONE (02:45)
[2019-06-11] MEDS ORDERED: Metoclopramide 10 MG/10 ML UD.LIQ PO ONE (02:49)
[2019-06-11 05:42] LABS: Thyroid Stimulating Hormone 1.037 mcIU/mL (0.340-5.600)
[2019-06-11 08:52] LABS: Bilirubin,Urine Negative (Negative); Blood,Urine Negative (Negative); Clarity,Urine Clear (Clear); Color,Urine Yellow (Yellow); Glucose,Urine (UA) >=1000 mg/dL (Normal); Ketones,Urine Negative (Negative); Leukocyte Esterase,Urine Negative (Negative); Nitrite,Urine Negative (Negative); PH,Urine 5.5 pH Units (5.0-8.0); Protein,Urine Negative (Neg-Trace); Specific Gravity,Urine > 1.030 (1.010-1.025); Urobilinogen,Urine Normal (Normal)
[2019-06-11] MEDS: Insulin LISPRO 300 UNITS/3 ML VIAL SQ SCH ×3 (09:00→17:53)
[2019-06-11] MEDS ORDERED: Furosemide 20 MG TABLET PO SCH (09:00)
[2019-06-11] MEDS ORDERED: Aspirin Enteric Coated 81 MG Tablet PO SCH (09:00)
[2019-06-11] MEDS ORDERED: BuPROPion XL (24 HR) 150 MG TABLET PO SCH (09:00)
[2019-06-11 09:01] LABS: Amphetamine Screen,Urine Negative ng/mL (Cutoff=1000); Barbiturate Screen,Urine Positive ng/mL (Cutoff=200); Benzodiazepines Screen,Urine Negative ng/mL (Cutoff=200); Cannabinoid Screen,Urine Negative ng/mL (Cutoff = 50); Cocaine Screen,Urine Negative ng/mL (Cutoff= 300); Opiate Screen,Urine Negative ng/mL (Cutoff=300); Phencyclidine Screen,Urine Negative ng/mL (Cutoff=25)
[2019-06-11] MEDS: Gabapentin 300 MG CAPSULE PO SCH ×2 (09:01→12:16)
[2019-06-11] MEDS ORDERED: Valproic Acid INJ 500 MG in 0.9 % Sodium Chloride 100 ML IVPB ONE (09:30)
[2019-06-11 09:38] LABS: Estimated Average Glucose 131 mg/dl
[2019-06-11] MEDS ORDERED: diazePAM 5 MG TABLET PO SCH (21:00)
[2019-06-11] MEDS ORDERED: Divalproex (24 HR) 250 MG TABLET PO SCH (21:00)
[2019-06-11] MEDS ORDERED: Gabapentin 400 MG CAPSULE PO SCH (21:00)
[2019-06-11] MEDS ORDERED: Prochlorperazine 10 MG/2 ML VIAL IVP ONE (23:46)
[2019-06-12 11:34] VITALS: BP 162/77
== END 2019-06-12 13:13 | disposition home health service (06) | DRG 103 ==
LOC: 3BNU 14:41 → EMEROOARM 14:41 → 3BNU 19:55
PROVIDERS: ADMIT Internal Medicine; ATTEND Internal Medicine

== ENCOUNTER 2020-09-20 06:08 | Observation (INO) ==
[2020-09-20] MEDS ORDERED: 0.9 % Sodium Chloride 1,000 ML ONE ×2 (07:06→07:13)
[2020-09-20] MEDS ORDERED: *HR* Heparin 10,000 UNIT/10 ML VIAL ONE (07:13)
[2020-09-20] MEDS ORDERED: Heparin 1,000 UNITS/500 mL 500 ML ONE (07:13)
[2020-09-20] MEDS ORDERED: ISOVUE-370 200 ML INFUS..BTL ONE ×2 (07:13→08:57)
[2020-09-20] MEDS ORDERED: Nitroglycerin 1,000 MCG/5 ML VIAL IV ONE (07:14)
[2020-09-20] MEDS ORDERED: *HR* FentaNYL (PF) 100 MCG/2 ML VIAL ONE ×2 (08:16→08:37)
[2020-09-20] MEDS ORDERED: *HR* Midazolam HCl 2 MG/2 ML VIAL ONE ×2 (08:16→08:36)
[2020-09-20] MEDS ORDERED: Tirofiban 12.5 MG/250ML 12.5 MG/250 ML BAG ONE (08:50)
[2020-09-20] MEDS ORDERED: Tirofiban 12.5 MG/250ML 12.5 MG/250 ML BAG IVC SCH (09:30)
[2020-09-20] MEDS ORDERED: GI Cocktail 40 ML EACH PO ONE (10:09)
[2020-09-20] MEDS ORDERED: Nitroglycerin Spray 4.9 GM BOTTLE ONE (10:18)
[2020-09-20 14:03] LABS: Hematocrit 37.8 % (35.3-44.9); Hemoglobin 13.2 g/dL (11.5-15.4)
[2020-09-20 14:07] LABS: BUN/Creatinine Ratio 12 (6-26); Blood Urea Nitrogen 9 mg/dL (6-20); eGFR For African Americans > 60 (> 60); eGFR For Non-African Americans > 60 (> 60)
[2020-09-20] MEDS ORDERED: tiZANidine 4 MG TABLET PO PRN (16:57)
[2020-09-20] MEDS: *HR* Labetalol 20 MG/4 ML SYRINGE IVP ONE ×2 (17:21→18:00)
[2020-09-20] MEDS: Gabapentin 400 MG CAPSULE PO SCH (19:39)
[2020-09-20] MEDS ORDERED: *HR* Promethazine 25 MG/ML VIAL IM ONE (20:01)
[2020-09-21 02:48] LABS: Hematocrit 34.9 % (35.3-44.9); Hemoglobin 11.7 g/dL (11.5-15.4)
[2020-09-21 02:57] LABS: BUN/Creatinine Ratio 9 (6-26); Blood Urea Nitrogen 12 mg/dL (6-20); eGFR For African Americans 51 (> 60); eGFR For Non-African Americans 42 (> 60)
[2020-09-21] MEDS ORDERED: (Plecanatide [Trulance] 3 MG Tablet) PO SCH (09:00)
[2020-09-21] MEDS ORDERED: EMPAGLIFLOZIN PO SCH (09:00)
[2020-09-21] MEDS ORDERED: METFORMIN HCL PO SCH (09:00)
[2020-09-21] MEDS ORDERED: BuPROPion XL (24 HR) 150 MG TABLET PO SCH (09:00)
[2020-09-21] MEDS ORDERED: Furosemide 40 MG TABLET PO SCH (09:00)
[2020-09-21] MEDS ORDERED: INSULIN LISPRO 100 UNIT/ML SQ SCH (09:00)
[2020-09-21] MEDS: Gabapentin 300 MG CAPSULE PO SCH ×2 (09:35→12:28)
[2020-09-21] MEDS: Aspirin Enteric Coated 81 MG Tablet PO SCH (09:35)
[2020-09-21] MEDS: carvediloL 6.25 MG TABLET PO SCH ×2 (09:35→17:27)
[2020-09-21 09:38] LABS: Potassium 4.4 mEq/L (3.5-5.1)
[2020-09-21] MEDS ORDERED: Dextrose Gel 15 GM/37.5 ML TUBE PO PRN ×2 (09:49)
[2020-09-21] MEDS ORDERED: D5% in Water 1,000 ML IVC PRN (09:49)
[2020-09-21] MEDS ORDERED: *HR* Dextrose 50 % in Water (Vial) 50 ML VIAL IVP PRN (09:49)
[2020-09-21] MEDS ORDERED: Acetaminophen 325 MG TABLET PO PRN (10:49)
[2020-09-21] MEDS: Insulin LISPRO 300 UNITS/3 ML VIAL SUBQ SCH ×2 (12:28→17:28)
[2020-09-21] MEDS: 0.9 % Sodium Chloride 1,000 ML IVC SCH ×2 (12:34→23:55)
[2020-09-21] MEDS: Ondansetron ODT 4 MG TAB.RAPDIS PO PRN ×2 (15:57→23:55)
[2020-09-21] MEDS: *HR* Heparin 5,000 UNIT/ML VIAL SQ SCH (17:27)
[2020-09-21] MEDS: Gabapentin 400 MG CAPSULE PO SCH (20:11)
[2020-09-21] MEDS ORDERED: Insulin LISPRO 300 UNITS/3 ML VIAL SUBQ SCH (21:00)
[2020-09-22 03:37] LABS: Hematocrit 33.8 % (35.3-44.9); Hemoglobin 11.4 g/dL (11.5-15.4); Mean Corpuscular HGB Conc 33.7 g/dL (31.6-35.5); Mean Corpuscular Hemoglobin 31.1 pg (28.0-33.3); Mean Corpuscular Volume 92.3 fL (83.0-100.0); Mean Platelet Volume 10.9 fL (9.4-12.4); Platelet Count 163 K/mcL (140-400); Red Blood Count 3.66 M/mcL (3.82-4.97); Red Cell Distribution Width 12.4 % (11.5-14.5); White Blood Count 8.6 K/mcL (4.3-11.1)
[2020-09-22 04:03] LABS: Calcium 8.9 mg/dL (8.6-10.3); Potassium 4.1 mEq/L (3.5-5.1)
[2020-09-22] MEDS: *HR* Heparin 5,000 UNIT/ML VIAL SQ SCH (05:51)
[2020-09-22 07:15] VITALS: BP 117/61
[2020-09-22] MEDS: Gabapentin 300 MG CAPSULE PO SCH (07:49)
[2020-09-22] MEDS: carvediloL 6.25 MG TABLET PO SCH (07:49)
[2020-09-22] MEDS: Aspirin Enteric Coated 81 MG Tablet PO SCH (07:49)
[2020-09-22] MEDS: Insulin LISPRO 300 UNITS/3 ML VIAL SUBQ SCH (07:50)
== END 2020-09-22 12:29 | disposition home or self-care (01) ==
LOC: INVDIALAB 06:08 → 2ANU 06:08
PROVIDERS: ADMIT Internal Medicine Cardiovascular Disease; ATTEND Internal Medicine Cardiovascular Disease